=== PATIENT | female | born 1980 | race Caucasian/White ===

== ENCOUNTER 2016-05-16 16:21 | Outpatient (CLI) | payer BC ==
[~2016-05-16] VITALS: Ht 160 cm; Wt 88.1 kg
[~2016-05-16 16:21] MED LIST: CRAN400T3 PO; D50KC PO; DEXA0.5T PO; DIPH25CA79 PO; FURO-125 PO; HYDR-757 PO; IBUP-1773 PO; LEVO5TAB19 PO; METF-146 PO; OMG1KC PO; PHEN37.555 PO; PNV1TABL9 PO; POTA20TA8 PO; PROG100C3 PO; PROG100I2 VG; SERT50TA2 PO; THYR130T5 PO; TRAM50TA2 PO
--- OUTSIDE RECORDS SUMMARY | 2016-05-16 16:26 | XMS REPORT | Continuity of Care Document ---
Author Author [facility] Organization [facility] Address Unknown Phone Unavailable Care Team Providers Care Implementation Analyst Name Role Phone Ja Lim PCP [phone] Source Comments Some departments are not documenting in the electronic medical record. If you do not see the information that you expected, contact Release of Information in the Health Information Management department at [phone] for further assistance in locating additional records.[facility] Active Allergies and Adverse Reactions Allergen Noted Date Severity Reactions Comments Morphine 01/13/2011 NAUSEA AND VOMITING Current Medications Prescription Sig. Disp. Refills Start End Date Status Date Glycopyrrolate 2 mg PO Take 2 mg by mouth twice Active Tab daily. HYDROcodone/acetaminophen Take 1 Tab by mouth every Active (+) (LORTAB) 7.5/500 mg 4 hours as needed. PO tablet phentermine(+) 37.5 mg PO Take 37.5 mg by mouth as Active tablet Needed. liraglutide(+) (VICTOZA) Inject 0.6 mg into Active 0.6 mg/0.1 mL (18 mg/3 area(s) as directed mL) SC PnIj daily. dexamethasone (DECADRON) Take 0.5 mg by mouth Active 0.5 mg PO tablet daily. Days 10-28 progesterone Take 200 mg by mouth Active micronized(+) daily. (PROMETRIUM) 100 mg PO capsule Olopatadine (PATANASE) Insert 2 Sprays into nose Active 0.6 % NA [place] as directed daily. polyethylene glycol 3350 Take 17 g by mouth daily. Active (GLYCOLAX; MIRALAX) 17 gram/dose PO powder IBUPROFEN PO Take 800 mg by mouth Active daily as needed. diphenhydrAMINE Take 25 mg by mouth daily Active (BENADRYL) 25 mg PO as needed. capsule ergocalciferol (VITAMIN Take 50,000 Units by Active D-2) 50,000 unit PO mouth every 7 days. capsule Cranberry 500 mg PO Cap Take by mouth daily. Active VITS Take by mouth daily. Active W-CA,FE,FA(<1MG) ( VITAMIN PO) Active Problems Problem Noted Date Neuralgia, neuritis, and radiculitis, unspecified 01/13/2011 Abdominal pain, unspecified site 01/13/2011 Other nerve root and plexus disorders 01/13/2011 Social History Tobacco Use Types Packs/Day Years Used Date Never Smoker Alcohol Use Drinks/Week oz/Week Comments Yes 1 Glasses of 0.6 wine Last Filed Vital Signs Vital Sign Reading Time Taken Blood Pressure 97/60 02/17/2011 11:11 AM CDT Pulse 62 02/17/2011 11:11 AM CDT Temperature 36.2 C (97.1 F) 02/17/2011 11:11 AM CDT Respiratory Rate 23 02/17/2011 11:11 AM CDT Height 1.6 m (5' 3") 02/17/2011 11:11 AM CDT Weight 64.093 kg (141 lb 4.8 oz) 02/17/2011 11:11 AM CDT Body Mass Index 25.04 02/17/2011 11:11 AM CDT Oxygen Saturation - - Plan of Care Health Maintenance Due Date Last Done Comments Physical (Comprehensive) 1988 Exam Pertussis Vaccine 1992 Tetanus Vaccine 1998 Cervical Cancer Screening 2002 Influenza Vaccine 01/09/2016 Results from Last 3 Months Not on file
[2016-05-16] MEDS ORDERED: D5 LR IV SOLUTION 1,000 ML IV SCH (17:00)
[2016-05-16] MEDS ORDERED: PROMETHAZINE INJ 25 MG/ML (PHENERGAN) AMP IVP ONE (17:00)
[2016-05-16] MEDS ORDERED: MAGNESIUM 1 GM/100 ML IVPB 100 ML IV ONE (17:00)
[2016-05-16] MEDS ORDERED: diphenhydrAMINE 50 MG/ML INJ (BENADRYL) IVP ONE (17:00)
[2016-05-16 17:40] LABS: BASOPHILS % (AUTO) 0 % (0-10); EOSINOPHILS % (AUTO) 0 % (0-10); LYMPHOCYTES # (AUTO) 1.7 X 10^3 (1.0-4.0); LYMPHOCYTES % (AUTO) 16 % (12-44); MEAN CORPUSCULAR HEMOGLOBIN 30 PG (25-34); MEAN CORPUSCULAR HGB CONC 34 G/DL (32-36); MEAN CORPUSCULAR VOLUME 87 FL (80-99); MEAN PLATELET VOLUME 9.3 FL (7.4-10.4); MONOCYTES # (AUTO) 0.5 X 10^3 (0.0-1.0); MONOCYTES % (AUTO) 5 % (0-12); NEUTROPHILS # (AUTO) 8.7 X 10^3 (1.8-7.8); NEUTROPHILS % (AUTO) 79 % (42-75); PLATELET COUNT 241 10^3/uL (130-400); RED BLOOD COUNT 4.54 10^6/uL (4.35-5.85); RED CELL DISTRIBUTION WIDTH 14.1 % (10.0-14.5)
[2016-05-16 18:02] LABS: ALANINE AMINOTRANSFERASE 15 U/L (0-55); ALBUMIN 3.5 G/DL (3.2-4.5); AMYLASE 86 U/L (25-125); ANION GAP 11 MMOL/L (5-14); ASPARTATE AMINO TRANSFERASE 13 U/L (5-34); BILIRUBIN,TOTAL 0.2 MG/DL (0.1-1.0); BLOOD UREA NITROGEN 7 MG/DL (7-18); BUN/CREATININE RATIO 12; CALCIUM 8.6 MG/DL (8.5-10.1); CARBON DIOXIDE 18 MMOL/L (21-32); CHLORIDE 111 MMOL/L (98-107); GFR ESTIMATED > 60; GLUCOSE 92 MG/DL (70-105); LIPASE 35 U/L (8-78); POTASSIUM 3.5 MMOL/L (3.6-5.0); SODIUM 140 MMOL/L (135-145); TOTAL PROTEIN 6.1 G/DL (6.4-8.2)
[2016-05-16] MEDS ORDERED: ONDANSETRON 4 MG/2 ML (SDV) Z0FRAN ONE (18:08)
[2016-05-16 18:20] VITALS: BP 100/55
[2016-05-16] MEDS ORDERED: ONDA4TAB8 PO (18:35)
--- NOTE | 2016-05-18 12:28 | Physician Query-Final Dx ---
SIMI STEPHENS 05/18/16 1228: Clinic Account Progress/Dx Physician Query: Please give diagnosis Date of Service May 16, 2016 at 16:21 ABDELRAHMAN CAPUTO MD 05/20/16 1202: Clinic Account Progress/Dx DIAGNOSIS: Diagnosis Nausea and vomiting in , headache in SIMI STEPHENS May 18, 2016 12:28 ABDELRAHMAN CAPUTO MD May 20, 2016 12:02
== END 2016-05-16 19:00 | disposition home or self-care (01) ==
LOC: LDRP 16:21 → WSo 16:21
PROVIDERS: ATTEND Obstetrics & Gynecology
DX: O21.9 Vomiting of pregnancy, unspecified (principal); O99.89 Other specified diseases and conditions complicating pregnancy, childbirth and the puerperium; R51 Headache
CPT/HCPCS: 36415; 80053; 82150; 83690; 85025; 96374; 96375; 99214

== ENCOUNTER 2016-05-18 18:40 | Outpatient (CLI) | payer BC ==
[~2016-05-18] VITALS: Ht 160 cm; Wt 89.0 kg
[~2016-05-18 18:40] MED LIST changes: +ONDA4TAB8 PO
--- OUTSIDE RECORDS SUMMARY | 2016-05-18 18:44 | XMS REPORT | Continuity of Care Document ---
Author Author [facility] Organization [facility] Address Unknown Phone Unavailable Care Team Providers Care Dentures Lab Technician Name Role Phone Ja Lim PCP [phone] Source Comments Some departments are not documenting in the electronic medical record. If you do not see the information that you expected, contact Release of Information in the Health Information Management department at [phone] for further assistance in locating additional records.[facility] Active Allergies and Adverse Reactions Allergen Noted [...] Sprays into nose Active 0.6 % NA [place] as directed daily. polyethylene glycol 3350 Take [...]
[2016-05-18 18:45] VITALS: BP 103/54
[2016-05-18] MEDS ORDERED: BUTORPHANOL INJ 2 MG/ML (STADOL) VIAL IV ONE (19:15)
[2016-05-18] MEDS ORDERED: D5 LR IV SOLUTION 1,000 ML IV SCH (19:15)
[2016-05-18 19:38] LABS: BILIRUBIN,URINE NEGATIVE (NEGATIVE); KETONES,URINE NEGATIVE (NEGATIVE); LEUKOCYTE ESTERASE ,URINE 1+ (NEGATIVE); NITRITE,URINE NEGATIVE (NEGATIVE); PH,URINE 6 (5-9); PROTEIN,URINE NEGATIVE (NEGATIVE); UROBILINOGEN,URINE 1 MG/DL (NORMAL)
[2016-05-18] MEDS ORDERED: MAGN400T6 PO (19:42)
[2016-05-18] MEDS ORDERED: CEPH-507 PO (19:44)
[2016-05-18 19:45] LABS: CALCIUM OXALATE CRYSTALS,UR FEW /LPF
[2016-05-18 19:50] LABS: BASOPHILS % (AUTO) 0 % (0-10); EOSINOPHILS # (AUTO) 0.1 10^3/uL (0.0-0.3); EOSINOPHILS % (AUTO) 1 % (0-10); LYMPHOCYTES # (AUTO) 2.1 X 10^3 (1.0-4.0); LYMPHOCYTES % (AUTO) 27 % (12-44); MEAN CORPUSCULAR HEMOGLOBIN 30 PG (25-34); MEAN CORPUSCULAR HGB CONC 34 G/DL (32-36); MEAN CORPUSCULAR VOLUME 88 FL (80-99); MEAN PLATELET VOLUME 9.6 FL (7.4-10.4); MONOCYTES # (AUTO) 0.7 X 10^3 (0.0-1.0); MONOCYTES % (AUTO) 9 % (0-12); NEUTROPHILS # (AUTO) 4.9 X 10^3 (1.8-7.8); NEUTROPHILS % (AUTO) 64 % (42-75); PLATELET COUNT 225 10^3/uL (130-400); RED BLOOD COUNT 4.15 10^6/uL (4.35-5.85); RED CELL DISTRIBUTION WIDTH 14.1 % (10.0-14.5); WHITE BLOOD COUNT 7.7 10^3/uL (4.3-11.0)
[2016-05-18 20:00] VITALS: BP 100/58
[2016-05-18 20:09] LABS: ALANINE AMINOTRANSFERASE 23 U/L (0-55); ALBUMIN 3.2 G/DL (3.2-4.5); ANION GAP 9 MMOL/L (5-14); ASPARTATE AMINO TRANSFERASE 15 U/L (5-34); BILIRUBIN,TOTAL 0.2 MG/DL (0.1-1.0); BLOOD UREA NITROGEN 10 MG/DL (7-18); BUN/CREATININE RATIO 16; CALCIUM 8.6 MG/DL (8.5-10.1); CARBON DIOXIDE 19 MMOL/L (21-32); CHLORIDE 109 MMOL/L (98-107); CREATININE SERUM 0.61 MG/DL (0.60-1.30); GFR ESTIMATED > 60; GLUCOSE 91 MG/DL (70-105); POTASSIUM 3.4 MMOL/L (3.6-5.0); SODIUM 137 MMOL/L (135-145); TOTAL PROTEIN 5.6 G/DL (6.4-8.2)
[2016-05-18 20:25] VITALS: BP 96/58
[2016-05-18 20:55] VITALS: BP 97/55
[2016-05-18 21:00] VITALS: BP 102/52
[2016-05-18 21:49] VITALS: BP 96/53
--- NOTE | 2016-05-20 09:30 | Physician Query-Final Dx ---
SIMI STEPHENS 05/20/16 0930: Clinic Account Progress/Dx Physician Query: Please give diagnosis Date of Service May 18, 2016 at 18:40 ANGELES MALAGON MD 05/21/16 0748: Clinic Account Progress/Dx DIAGNOSIS: Diagnosis migraine headache SIMI STEPHENS May 20, 2016 09:30 ANGELES MALAGON MD May 21, 2016 07:48
== END 2016-05-18 22:07 | disposition home or self-care (01) ==
LOC: LDRP 18:40 → WSo 18:40
PROVIDERS: ATTEND Obstetrics & Gynecology
DX: O99.89 Other specified diseases and conditions complicating pregnancy, childbirth and the puerperium (principal); G43.909 Migraine, unspecified, not intractable, without status migrainosus; Z3A.25 25 weeks gestation of pregnancy
CPT/HCPCS: 36415; 80053; 81000; 85025; 87088; 96361; 96374; 99213

== ENCOUNTER 2016-07-13 08:51 | Outpatient (CLI) | payer BC ==
[~2016-07-13] VITALS: Ht 160 cm; Wt 94.0 kg
[~2016-07-13 08:51] MED LIST changes: +CEPH-507 PO; +MAGN400T6 PO
--- OUTSIDE RECORDS SUMMARY | 2016-07-13 08:55 | XMS REPORT | Continuity of Care Document ---
Author Author [facility] Organization [facility] Address Unknown Phone Unavailable Care Team Providers Care Package Crimper Name Role Phone Ja Lim PCP [phone] Source Comments Some departments are not documenting in the electronic medical record. If you do not see the information that you expected, contact Release of Information in the Health Information Management department at [phone] for further assistance in locating additional records.[facility] Active Allergies and Adverse Reactions Allergen [...] Sprays into nose Active 0.6 % NA [place] as directed daily. polyethylene glycol 3350 Take [...]
[2016-07-13 09:00] VITALS: BP 117/60
[2016-07-13] MEDS ORDERED: FLUT9.9S NS (10:41)
[2016-07-13 11:00] VITALS: BP 117/60
--- NOTE | 2016-07-14 13:46 | Physician Query-Final Dx ---
EMILIANO JACOBS 07/14/16 1346: Clinic Account Progress/Dx Physician Query: Please give diagnosis Date of Service Jul 13, 2016 at 08:51 BAIELY VALENCIA DO 07/15/16 0439: Clinic Account Progress/Dx DIAGNOSIS: Diagnosis 33 week IUP Decreased movement EMILIANO JACOBS Jul 14, 2016 13:46 BAILEY VALENCIA DO Jul 15, 2016 04:39
== END 2016-07-13 11:00 | disposition home or self-care (01) ==
LOC: LDRP 08:51 → WSo 08:51
PROVIDERS: ATTEND Obstetrics & Gynecology
DX: O36.8130 Decreased fetal movements, third trimester, not applicable or unspecified (principal); Z3A.33 33 weeks gestation of pregnancy
CPT/HCPCS: 99213

== ENCOUNTER 2016-08-13 11:58 | Outpatient (CLI) | payer BC ==
[~2016-08-13] VITALS: Ht 160 cm; Wt 94.1 kg
[~2016-08-13 11:58] MED LIST changes: +FLUT9.9S NS
[2016-08-13 12:13] VITALS: BP 111/67
== END 2016-08-13 12:38 | disposition home or self-care (01) ==
LOC: PREOP 11:58
PROVIDERS: ATTEND Obstetrics & Gynecology
DX: Z01.818 Encounter for other preprocedural examination (principal); Z11.2 Encounter for screening for other bacterial diseases
CPT/HCPCS: 87081

== ENCOUNTER 2016-08-20 06:02 | Inpatient (IN) | payer BC ==
[~2016-08-20] VITALS: Ht 160 cm; Wt 94.1 kg
[~2016-08-20 06:02] MED LIST changes: +CITRIC ACID/SOB CIT (BICITRA) 30 ML UDC ONE; +METOCLOPRAMIDE INJ 10 MG/2 ML (REGLAN) ONE
[2016-08-20] MEDS ORDERED: AMPICILLIN INJECTION 2,000 MG in NS (IVPB) 50 ML IV ONE (06:07)
[2016-08-20 06:10] VITALS: BP 117/77
[2016-08-20] MEDS ORDERED: LACTATED RINGERS 1,000 ML IV PRN ×2 (06:11)
[2016-08-20] MEDS ORDERED: FAMOTIDINE 20MG/2ML IV (PEPCID) IV ONE (06:15)
[2016-08-20] MEDS ORDERED: CITRIC ACID/SOB CIT (BICITRA) 30 ML UDC PO ONE (06:15)
[2016-08-20] MEDS ORDERED: METOCLOPRAMIDE INJ 10 MG/2 ML (REGLAN) IV ONE (06:15)
[2016-08-20] MEDS ORDERED: CATHETER FLUSH 10 ML SYR IV PRN (06:15)
[2016-08-20] MEDS ORDERED: THYR130T5 PO (06:26)
[2016-08-20 06:29] LABS: BASOPHILS % (AUTO) 0 % (0-10); EOSINOPHILS # (AUTO) 0.1 10^3/uL (0.0-0.3); EOSINOPHILS % (AUTO) 1 % (0-10); LYMPHOCYTES # (AUTO) 2.6 X 10^3 (1.0-4.0); LYMPHOCYTES % (AUTO) 25 % (12-44); MEAN CORPUSCULAR HEMOGLOBIN 29 PG (25-34); MEAN CORPUSCULAR HGB CONC 33 G/DL (32-36); MEAN CORPUSCULAR VOLUME 87 FL (80-99); MONOCYTES # (AUTO) 0.9 X 10^3 (0.0-1.0); MONOCYTES % (AUTO) 9 % (0-12); NEUTROPHILS # (AUTO) 6.9 X 10^3 (1.8-7.8); NEUTROPHILS % (AUTO) 65 % (42-75); PLATELET COUNT 270 10^3/uL (130-400); RED BLOOD COUNT 4.86 10^6/uL (4.35-5.85); RED CELL DISTRIBUTION WIDTH 15.6 % (10.0-14.5); WHITE BLOOD COUNT 10.5 10^3/uL (4.3-11.0)
[2016-08-20] MEDS ORDERED: ceFAZolin 2 GM/50 ML NS 50 ML IV NR (06:30)
[2016-08-20 06:52] LABS: BILIRUBIN,URINE NEGATIVE (NEGATIVE); KETONES,URINE NEGATIVE (NEGATIVE); LEUKOCYTE ESTERASE ,URINE 1+ (NEGATIVE); NITRITE,URINE NEGATIVE (NEGATIVE); PH,URINE 6 (5-9); PROTEIN,URINE 1+ (NEGATIVE); UROBILINOGEN,URINE NORMAL (NORMAL)
[2016-08-20] MEDS ORDERED: OXYTOCIN/NORMAL SALINE 1,000 ML IV ONE (06:59)
[2016-08-20] MEDS ORDERED: fentaNYL INJECTION 100 MCG/2 ML AMP ONE (06:59)
[2016-08-20] MEDS ORDERED: BUPIVACAINE SPINAL 0.75% (SENSORCAINE) 2 ML AMP ONE (07:00)
--- NOTE | 2016-08-20 07:13 | History & Physical-OB ---
OB - Chief Complaint & HPI Date Date of Admission: Date of Admission: Aug 20, 2016 at 6:02 am Chief Complaint/History OB-Reason for Admission/Chief: Section Hx : 2 Hx Para: 1 Expected Date of Delivery: Aug 26, 2016 Gestational Age in Weeks: 39 Gestational Age in Days: 1 Indication for : other (History of tailbone dislocation with prior ) Admission Nurse Assessment Rev: Yes History of Labs O pos Antibody neg RI RPR HBsAg GC neg GBS + Allergies and Home Medications Allergies Coded Allergies: codeine (Verified Allergy, Unknown, NAUSEA, 08/13/16) morphine (Unverified Allergy, Unknown, 08/13/16) Home Medications Diphenhydramine HCl 25 Mg Capsule, 25 MG PO Q8H PRN for ALLERGIES, (Reported) Fluticasone Propionate 9.9 Ml Inez.susp, 9.9 ML NS PRN, (Reported) Pnv Cmb#21/Iron/Folic Acid 1 Each Tablet, 1 EACH PO DAILY, (Reported) Thyroid,Pork 130 Mg Tablet, 130 MG PO DAILY, (Reported) OB - History Hx of Present Care: Yes Ultrasounds: Normal mid trimester US Obstetrical Complications: Other (Abnormal quad screen, Increased risk of T21) Medical Complications: None Delivery History Hx Blood Disorders: No Adverse Rxn to Tranfusion: No (N/A) Patient Past Medical History PCOS Social History/Family History HIV/AIDS: No Recent Infectious Disease Expo: No Sexually Transmitted Disease: No Alcohol Use: Denies Use Recreational Drug Use: No Immunizations Date of Influenza Vaccine: Feb 20, 2016 OB - Admission Exam Physical Exam HEENT: NCAT Heart: Rhythm Normal Lungs: Clear Abdomen: Gravid Extremities: Normal Reflexes: Normal Heart Rate: 130's Accelerations: Accelerations Present Decelerations: No Decelerations Short Term Variability: Present Halfway Variability: Average (6-25) Contractions on Admission: >10 Minutes Apart Intensity: Mild Labs Laboratory Tests Test 08/20/16 06:15 08/20/16 06:30 Range/Units White Blood Count 10.5 4.3-11.0 10^3/uL Red Blood Count 4.86 4.35-5.85 10^6/uL Hemoglobin 14.0 11.5-16.0 G/DL Hematocrit 43 35-52 % Mean Corpuscular Volume 87 80-99 FL Mean Corpuscular Hemoglobin 29 25-34 PG Mean Corpuscular Hemoglobin Concent 33 32-36 G/DL Red Cell Distribution Width 15.6 H 10.0-14.5 % Platelet Count 270 130-400 10^3/uL Mean Platelet Volume 10.0 7.4-10.4 FL Neutrophils (%) (Auto) 65 42-75 % Lymphocytes (%) (Auto) 25 12-44 % Monocytes (%) (Auto) 9 0-12 % Eosinophils (%) (Auto) 1 0-10 % Basophils (%) (Auto) 0 0-10 % Neutrophils # (Auto) 6.9 1.8-7.8 X 10^3 Lymphocytes # (Auto) 2.6 1.0-4.0 X 10^3 Monocytes # (Auto) 0.9 0.0-1.0 X 10^3 Eosinophils # (Auto) 0.1 0.0-0.3 10^3/uL Basophils # (Auto) 0.0 0.0-0.1 10^3/uL OB - Assessment/Plan/Diagnosis Assessment Assessment: section Plan Plan: Section Discharge Diagnosis Diagnosis: 35 yo @ 39.1 weeks History of Tailbone dislocation and 6 month recovery including PT GBS pos Abnormal quad screen BAILEY VALENCIA DO Aug 20, 2016 7:13 am
[2016-08-20] MEDS ORDERED: ONDANSETRON 4 MG/2 ML (SDV) Z0FRAN ONE (08:02)
[2016-08-20] MEDS ORDERED: OXYTOCIN/NORMAL SALINE 500 ML IV SCH (08:16)
[2016-08-20] MEDS ORDERED: ONDANSETRON 4 MG/2 ML (SDV) Z0FRAN IVP PRN (08:30)
[2016-08-20] MEDS ORDERED: HYDROmorphone (DILAUDID) 2 MG/ML VIAL IVP PRN (08:30)
[2016-08-20] MEDS ORDERED: MEASLES,MUMPS,RUBELLA 1 EA INJ SC SCH (08:30)
[2016-08-20] MEDS ORDERED: TETANUS,DIPTH,PERTUSS P/F (BOOSTRIX) 0.5 ML VIAL IM SCH (08:30)
[2016-08-20] MEDS: KETOROLAC 30 MG/ML VIAL IVP SCH ×3 (10:31→21:21)
[2016-08-20] MEDS: DOCUSATE SODIUM 100 MG (COLACE) CAP PO SCH ×2 (10:31→20:19)
[2016-08-20] MEDS: HYDROcodone/APAP 5 MG/325 MG (LORTAB) TAB PO PRN ×3 (10:45→23:24)
[2016-08-20 10:46] VITALS: BP 95/61
--- NOTE | 2016-08-20 13:27 | OPERATIVE REPORT ---
PROCEDURE PHYSICIAN: GIANCARLO VALENCIA DATE OF PROCEDURE: 08/20/2016 PREOPERATIVE DIAGNOSIS: 1. 35-year-old G2, P1 at 39 weeks one day gestation. 2. History of coccyx dislocation with prior vaginal delivery. POSTOPERATIVE DIAGNOSES: 1. 35-year-old G2, P1, at 39 weeks one day gestation. 2. History of coccyx dislocation with prior vaginal delivery. PROCEDURE: Primary low transverse section. SURGEON: Dr. Giancarlo Valencia. COTTON CLEANER: Winter Burch, [place] 4. ANESTHESIA: Spinal. ESTIMATED BLOOD LOSS: 830 mL. FLUIDS: 1400 mL lactated ringer solution. URINE: 100 mL clear at the end of the procedure. FINDINGS: Live female weighing 7 pounds, 3 ounces, Apgars 9 and 9. Grossly normal appearing uterus, bilateral fallopian tubes, and ovaries. INDICATIONS FOR THE PROCEDURE: This 35-year-old female is a patient who had sought care in my office. Throughout her care visits we discussed her previous delivery which included a dislocation of her coccyx with the prior delivery requiring a lengthy physical therapy. The patient wished to avoid this and was interested in proceed with primary section. Risk of this was discussed with the patient in detail. After everything was discussed and we agreed together now to proceed with primary low transverse section. In the preoperative area once again the procedure was reviewed. All her questions were answered. Consent was obtained. The patient was taken the operating room. OPERATIVE REPORT IN DETAIL: Once in the operating room, spinal analgesia was found to be adequate. She was placed in the supine position with leftward tilt, prepped in normal sterile fashion. Anesthesia is tested and timeout is performed. I then proceeded with making a Pfannenstiel skin incision with a knife and carried down to the underlying fascia using Bovie cautery. The fascial incision is extended laterally using the Bovie cautery. The superior aspect of the fascial incision was grasped with Maurilio clamps, tented upward and dissected off the underlying rectus muscle. The inferior aspect of the fascial incision was then grasped with Maurilio clamps, tented upward and dissected off of the underlying rectus muscles. The rectus muscles were then dissected down the midline using Abdullahi scissors which exposes the peritoneum. It is extended bluntly and this incision is extended superiorly and inferiorly with good visualization of underlying bowel and bladder. I then identify the lower uterine segment and placed an Andrew O-ring retractor into the peritoneal incision which offers excellent lateral sidewall retraction. Once this is in place, I proceed with my low transverse incision through the vesicouterine peritoneum and bluntly dissecting the bladder flap off of the lower uterine segment. I then proceed with my myotomy until membranes are visualized I extend the uterine incision laterally and superiorly using banded scissors and amniotomy was performed in the process of doing this. Clear fluid is noted at the time of rupture of membranes. The is found in the vertex presentation. The 's head was brought up to the incision. With gentle fundal pressure delivered through the incision where the nares and oropharynx are bulb suctioned. Anterior posterior shoulders were delivered and the infant is then brought onto the operative field. The cord is dually clamped and cut the is placed on the mother's upper abdomen were nurses take the for skin to skin contact immediately to the mother's chest. Cord blood was collected for analysis. Three vessel cord and placenta is delivered spontaneously thereafter. IV Pitocin is initiated to facilitate uterine contraction. Uterine fundus becomes firmer by manual massage. The uterus is then exteriorized of all endometrial, clots and debris. I then close the uterine incision using 0 Vicryl suture in a running lock fashion. A second layer of imbricating 0 Monocryl is placed. Excellent hemostasis noted after doing so. I then placed the uterus back within the pelvis and copiously irrigate the pelvis using normal saline. There is no active bleeding noted from any of my dissection planes. We then proceed with placing intercede to my low transverse incision for postoperative adhesion formation. I then close the peritoneum using 3-0 Vicryl suture in a running fashion. The rectus muscles are reapproximated using 3-0 Vicryl suture in an interrupted fashion. The fascia reapproximated 0 Vicryl suture in a running fashion. The subcutaneous tissues reapproximated using 3-0 plain in an interrupted subcutaneous stitch. The skin was reapproximated using 4-0 Monocryl in a running subcuticular. Dermabond was applied to the incision and sterile dressing and adhesive white tape. The patient tolerated the procedure well and was taken to the recovery area in stable condition. Lap and sponge count were correct at the end of the procedure, instrument count was correct as well. 2 grams Ancef were given preoperatively for infection prophylaxis. Job ID: [id number] Dictated Date: 08/20/2016 08:09:07 Apprentice/Lineman Date: 08/20/2016 13:07:34 / jesus
[2016-08-20 13:36] VITALS: BP 116/64
[2016-08-20 20:49] VITALS: BP 117/74
[2016-08-20] MEDS: CATHETER FLUSH 10 ML SYR IV SCH (21:21)
[2016-08-21] VITALS: BP 86/55
[2016-08-21] MEDS: KETOROLAC 30 MG/ML VIAL IVP SCH (03:11)
[2016-08-21] MEDS: HYDROcodone/APAP 5 MG/325 MG (LORTAB) TAB PO PRN ×4 (03:11→21:12)
[2016-08-21 04:00] VITALS: BP 97/56
[2016-08-21] MEDS: CATHETER FLUSH 10 ML SYR IV SCH ×3 (06:00→23:36)
[2016-08-21 06:48] LABS: BASOPHILS % (AUTO) 0 % (0-10); EOSINOPHILS # (AUTO) 0.1 10^3/uL (0.0-0.3); EOSINOPHILS % (AUTO) 1 % (0-10); LYMPHOCYTES # (AUTO) 3.2 X 10^3 (1.0-4.0); LYMPHOCYTES % (AUTO) 29 % (12-44); MEAN CORPUSCULAR HEMOGLOBIN 28 PG (25-34); MEAN CORPUSCULAR HGB CONC 32 G/DL (32-36); MEAN CORPUSCULAR VOLUME 89 FL (80-99); MONOCYTES # (AUTO) 0.7 X 10^3 (0.0-1.0); MONOCYTES % (AUTO) 7 % (0-12); NEUTROPHILS # (AUTO) 6.8 X 10^3 (1.8-7.8); NEUTROPHILS % (AUTO) 63 % (42-75); PLATELET COUNT 231 10^3/uL (130-400); RED BLOOD COUNT 3.66 10^6/uL (4.35-5.85); RED CELL DISTRIBUTION WIDTH 15.5 % (10.0-14.5); WHITE BLOOD COUNT 10.8 10^3/uL (4.3-11.0)
[2016-08-21 08:00] VITALS: BP 90/68
[2016-08-21] MEDS: DOCUSATE SODIUM 100 MG (COLACE) CAP PO SCH ×2 (08:19→21:12)
[2016-08-21] MEDS: IBUPROFEN 600 MG (MOTRIN) TAB PO SCH ×3 (09:09→21:12)
--- NOTE | 2016-08-21 10:43 | Postpartum Progress Note ---
Post Op Post-operative Day #1 s/p PLTCS Subjective: Patient is without complaints. Ambulating, voiding after morrow removed. Tolerating a regular diet without nausea or vomiting. Normal lochia. Pain is well controlled with oral pain medications. Passing flatus. breast feeding. Objective: Laboratory Tests Test 08/21/16 06:11 Range/Units White Blood Count 10.8 4.3-11.0 10^3/uL Red Blood Count 3.66 L 4.35-5.85 10^6/uL Hemoglobin 10.4 #L 11.5-16.0 G/DL Hematocrit 33 L 35-52 % Mean Corpuscular Volume 89 80-99 FL Mean Corpuscular Hemoglobin 28 25-34 PG Mean Corpuscular Hemoglobin Concent 32 32-36 G/DL Red Cell Distribution Width 15.5 H 10.0-14.5 % Platelet Count 231 130-400 10^3/uL Mean Platelet Volume 10.0 7.4-10.4 FL Neutrophils (%) (Auto) 63 42-75 % Lymphocytes (%) (Auto) 29 12-44 % Monocytes (%) (Auto) 7 0-12 % Eosinophils (%) (Auto) 1 0-10 % Basophils (%) (Auto) 0 0-10 % Neutrophils # (Auto) 6.8 1.8-7.8 X 10^3 Lymphocytes # (Auto) 3.2 1.0-4.0 X 10^3 Monocytes # (Auto) 0.7 0.0-1.0 X 10^3 Eosinophils # (Auto) 0.1 0.0-0.3 10^3/uL Basophils # (Auto) 0.0 0.0-0.1 10^3/uL Vital Sign - Last 12Hours 08/21/16 08/21/16 08/21/16 00:00 04:00 08:00 Temp 97.7 96.0 96.4 Pulse 80 66 88 Resp 17 17 20 B/P (MAP) 86/55 97/56 90/68 Pulse Ox 100 100 97 O2 Delivery Room Air Room Air Room Air Intake and Output 08/21/16 00:00 Intake Total 1360 ml Output Total 650 ml Balance 710 ml Physical Exam: General - Alert and oriented, no apparent distress Abdomen - Soft, appropriately tender to palpation, non-distended, fundus firm at umbilicus Incision - clean, dry and intact; no erythema or induration, no drainage Extremities - no edema, negative Carolina's bilaterally Assessment: 1. post-operative day #1, status post PLTCS. Recovering well, hemodynamically stable 2. Acute blood loss anemia - mild. Iron replaced Plan: Routine post-operative care. Encourage breast feeding. Encourage ambulation. VTE prophylaxis: SCDs. Ferrous sulfate supplementation. Plan for discharge Wednesday Vitals - Labs Vital Signs - I&O Vital Signs Date Time Temp Pulse Resp B/P (MAP) Pulse Ox O2 Delivery O2 Flow Rate FiO2 08/21/16 08:00 96.4 88 20 90/68 97 Room Air 08/21/16 04:00 96.0 66 17 97/56 100 Room Air 08/21/16 00:00 97.7 80 17 86/55 100 Room Air 08/20/16 20:49 96.2 91 18 117/74 97 Room Air 08/20/16 18:38 97.3 08/20/16 16:05 97.3 08/20/16 13:36 97.3 81 18 116/64 97 Room Air 08/20/16 12:58 97.3 08/20/16 11:01 97.1 08/20/16 10:46 97.1 84 18 95/61 99 Room Air 08/20/16 10:45 97.7 I & O 08/21/16 07:00 Intake Total 2910 ml Output Total 1550 ml Balance 1360 ml Labs Laboratory Tests 08/21/16 06:11: White Blood Count 10.8, Red Blood Count 3.66L, Hemoglobin 10.4#L, Hematocrit 33L , Mean Corpuscular Volume 89, Mean Corpuscular Hemoglobin 28, Mean Corpuscular Hemoglobin Concent 32, Red Cell Distribution Width 15.5H, Platelet Count 231, Mean Platelet Volume 10.0, Neutrophils (%) (Auto) 63, Lymphocytes (%) (Auto) 29 , Monocytes (%) (Auto) 7, Eosinophils (%) (Auto) 1, Basophils (%) (Auto) 0, Neutrophils # (Auto) 6.8, Lymphocytes # (Auto) 3.2, Monocytes # (Auto) 0.7, Eosinophils # (Auto) 0.1, Basophils # (Auto) 0.0 Microbiology 08/20/16 Urine Culture - Preliminary, Resulted Group B Streptococci Lactobacillus Species GENESIS DE SOUZA DO Aug 21, 2016 10:43
--- NOTE | 2016-08-21 14:05 | Anesthesia-Regional Post-Op ---
Regional Patient Condition Mental Status: Alert, Oriented x3 Circulation: Same as Pre-Op Headache: Absent Sensation: Full Recovery Motor Block: Absent Post Op Complications Complications None Follow Up Care/Instructions Patient Instructions None needed. Anesthesia/Patient Condition Patient is doing well, no complaints, stable vital signs, no apparent adverse anesthesia problems. DORINA BROOKS DO Aug 21, 2016 14:05
[2016-08-21 15:30] VITALS: BP 103/62
[2016-08-21 21:00] VITALS: BP 110/76
[2016-08-22] MEDS: HYDROcodone/APAP 5 MG/325 MG (LORTAB) TAB PO PRN ×3 (02:48→16:24)
[2016-08-22] MEDS: IBUPROFEN 600 MG (MOTRIN) TAB PO SCH ×3 (02:48→16:24)
[2016-08-22 02:55] VITALS: BP 103/68
[2016-08-22] MEDS: CATHETER FLUSH 10 ML SYR IV SCH (06:00)
--- NOTE | 2016-08-22 10:03 | Postpartum Progress Note ---
Post Op Post-operative Day #2 s/p PLTCS Subjective: Patient is without complaints. Ambulating, voiding after morrow removed. Tolerating a regular diet without nausea or vomiting. Normal lochia. Pain is well controlled with oral pain medications. Passing flatus. Objective: Vital Sign - Last 12Hours 08/22/16 02:55 Temp 98.4 Pulse 72 Resp 18 B/P (MAP) 103/68 Pulse Ox 97 O2 Delivery Room Air Intake and Output 08/22/16 00:00 Intake Total 1400 ml Output Total 400 ml Balance 1000 ml Physical Exam: General - Alert and oriented, no apparent distress Abdomen - Soft, appropriately tender to palpation, non-distended, fundus firm at umbilicus Incision - clean, dry and intact; no erythema or induration, no drainage Extremities - no edema, negative Carolina's bilaterally Assessment: 1. post-operative day # 2, status post PLTCs. Recovering well, hemodynamically stable Plan: Routine post-operative care. Encourage breast feeding. Encourage ambulation. VTE prophylaxis: SCDs. Ferrous sulfate supplementation. Plan for discharge today Vitals - Labs Vital Signs - I&O Vital Signs Date Time Temp Pulse Resp B/P (MAP) Pulse Ox O2 Delivery O2 Flow Rate FiO2 08/22/16 02:55 98.4 72 18 103/68 97 Room Air 08/21/16 21:00 97.4 80 18 110/76 100 Room Air 08/21/16 15:30 97.3 82 16 103/62 97 Room Air I & O 08/22/16 07:00 Intake Total 2300 ml Output Total 800 ml Balance 1500 ml Labs Microbiology 08/20/16 Urine Culture - Preliminary, Resulted Group B Streptococci Lactobacillus Species GENESIS DE SOUZA DO Aug 22, 2016 10:03
[2016-08-22] MEDS ORDERED: IBUP-1773 PO (10:04)
[2016-08-22] MEDS ORDERED: DOCU100C37 PO (10:04)
[2016-08-22] MEDS ORDERED: HYDR-3812 PO (10:04)
--- NOTE | 2016-08-22 10:07 | Discharge Inst-Women's Service ---
Discharge Inst-Women's Serv Depart Medication/Instructions New, Converted or Re-Newed RX: RX on Chart Instructions no lifting over 25 lbs, no driving for 1 week, Final Diagnosis primary section history of coccygeal dislocation with previous delivery history of abnormal quad screen Consults/Follow Up Additional Follow Up: Yes ([address] Dewey, call Wednesday to make appointment. 6 week exam) Activity Activity: Activity as Tolerated Driving Instructions: No Driving for 1 Week NO SMOKING: NO SMOKING Nothing Inside Vagina: No Douching, No [place], No Tampons Diet Discharge Diet: No Restrictions Symptoms to Report to : Swelling Increased, Bleeding Excessive, Pain Increased, Fever Over 101 Degrees F, Vaginal Bleeding Increase, Vaginal Discharge Foul For Any Problems or Questions: Contact Your Physician Skin/Wound Care Infection Signs and Symptoms: Increased Redness, Foul Odor of Wound, Increased Drainage, Skin Itchy or Has a Rash, Increased Swelling, Temperature Above 101 F Operative Area Clean and Dry: Keep Incision Clean/Dry Stitches/May/Dermabond: Dermabond Bathing Instructions: GENESIS Rosado DO Aug 22, 2016 10:07
[2016-08-22] MEDS: DOCUSATE SODIUM 100 MG (COLACE) CAP PO SCH (10:31)
[2016-08-22 10:40] VITALS: BP 104/67
[2016-08-22 16:24] VITALS: BP 100/69
== END 2016-08-22 17:55 | disposition home or self-care (01) | DRG 765 ==
LOC: LDRP 06:02
PROVIDERS: ADMIT Obstetrics & Gynecology; ATTEND Obstetrics & Gynecology
PROC: 10D00Z1 Extraction of Products of Conception, Low, Open Approach (ICD-10-PCS; principal; 2016-08-20 07:09)
DX: O90.81 Anemia of the puerperium (principal); D62 Acute posthemorrhagic anemia; Z87.59 Personal history of other complications of pregnancy, childbirth and the puerperium; Z37.0 Single live birth; Z3A.39 39 weeks gestation of pregnancy
CPT/HCPCS: 36415; 81000; 85025; 86850; 86900; 86901; 87088; 94664

== ENCOUNTER → 2017-02-22 | Outpatient (CLI) | payer BC ==
[~2017-02-22] MED LIST changes: -CITRIC ACID/SOB CIT (BICITRA) 30 ML UDC ONE; +DOCU100C37 PO; +HYDR-3812 PO; -LEVO5TAB19 PO; +LEVO5TAB28 PO; -METOCLOPRAMIDE INJ 10 MG/2 ML (REGLAN) ONE
--- NOTE | 2017-02-22 11:14 | Diagnostic Imaging Report ---
PA view of the chest. INDICATION: Cough and shortness of breath. FINDINGS: The lungs are clear. The heart size is normal. No effusion or pneumothorax. The mediastinum and jonny appear unremarkable. IMPRESSION: Unremarkable exam. Dictated by: Dictated on workstation # [id number]
== END ==
LOC: RAD 10:55
DX: R05 Cough (principal); R06.02 Shortness of breath
CPT/HCPCS: 71010

== ENCOUNTER 2017-12-08 05:33 | Outpatient (CLI) | payer BC ==
[~2017-12-08] VITALS: Ht 160 cm; Wt 79.5 kg
[~2017-12-08 05:33] MED LIST changes: +ACHD5005 PO; -HYDR-3812 PO
[2017-12-08] MEDS ORDERED: PHEN37.53 PO (13:14)
[2017-12-08] MEDS ORDERED: CLON0.252 PO (13:14)
[2017-12-08] MEDS ORDERED: ACET250T3 PO (13:14)
[2017-12-08] MEDS ORDERED: CRAN500T2 PO (13:14)
[2017-12-09] MEDS ORDERED: ACHD5005 PO (09:43)
[2017-12-09] MEDS ORDERED: IBUP-1773 PO (09:43)
== END 2017-12-08 13:24 ==
LOC: PREOP 05:33
PROVIDERS: ATTEND Obstetrics & Gynecology
DX: Z01.818 Encounter for other preprocedural examination (principal); R10.2 Pelvic and perineal pain; N94.10 Unspecified dyspareunia

== ENCOUNTER 2017-12-09 08:15 | Day surgery (SDC) | payer BC ==
[~2017-12-09] VITALS: Ht 160 cm; Wt 79.5 kg
[~2017-12-09 08:15] MED LIST changes: +ACET250T3 PO; +CLON0.252 PO; +CRAN500T2 PO; +PHEN37.53 PO
[2017-12-09] MEDS ORDERED: BUPIVACAINE 0.25% 30 ML (SENSORCAINE) VIAL ONE (08:36)
[2017-12-09 08:52] VITALS: BP 106/74
[2017-12-09 08:52] LABS: BASOPHILS % (AUTO) 0 % (0-10); EOSINOPHILS # (AUTO) 0.1 10^3/uL (0.0-0.3); EOSINOPHILS % (AUTO) 1 % (0-10); HEMATOCRIT 41 % (35-52); LYMPHOCYTES # (AUTO) 2.5 X 10^3 (1.0-4.0); LYMPHOCYTES % (AUTO) 39 % (12-44); MEAN CORPUSCULAR HEMOGLOBIN 29 PG (25-34); MEAN CORPUSCULAR HGB CONC 34 G/DL (32-36); MEAN CORPUSCULAR VOLUME 84 FL (80-99); MEAN PLATELET VOLUME 9.7 FL (7.4-10.4); MONOCYTES # (AUTO) 0.4 X 10^3 (0.0-1.0); MONOCYTES % (AUTO) 6 % (0-12); NEUTROPHILS # (AUTO) 3.6 X 10^3 (1.8-7.8); NEUTROPHILS % (AUTO) 55 % (42-75); PLATELET COUNT 332 10^3/uL (130-400); RED BLOOD COUNT 4.87 10^6/uL (4.35-5.85); RED CELL DISTRIBUTION WIDTH 13.5 % (10.0-14.5); WHITE BLOOD COUNT 6.6 10^3/uL (4.3-11.0)
[2017-12-09] MEDS: LACTATED RINGERS 1,000 ML IV PRN ×2 (08:55→10:10)
[2017-12-09] MEDS ORDERED: fentaNYL INJECTION 100 MCG/2 ML AMP ONE ×2 (09:34→10:15)
[2017-12-09] MEDS ORDERED: MIDAZOLAM 2 MG/2 ML (VERSED) VIAL ONE (09:34)
[2017-12-09] MEDS ORDERED: D5 LR IV SOLUTION 1,000 ML IV SCH (09:38)
--- NOTE | 2017-12-09 09:38 | Progress Note-Pre Operative ---
Pre-Operative Progress Note H&P Reviewed The H&P was reviewed, patient examined and no changes noted. Date Seen by Provider: Dec 09, 2017 Time Seen by Provider: 09:20 Date H&P Reviewed: Dec 09, 2017 Time H&P Reviewed: 09:15 Pre-Operative Diagnosis: Acute pelvic pain BAILEY VALENCIA DO Dec 09, 2017 9:37 am
--- NOTE | 2017-12-09 09:42 | Discharge Inst-Women's Service ---
Discharge Inst-Women's Serv Depart Medication/Instructions New, Converted or Re-Newed RX: RX on Chart Consults/Follow Up Additional Follow Up: Yes Orders/Referrals Dr. Dewey in 2-3 weeks Activity Activity: Activity as Tolerated Driving Instructions: No Driving for 1 Week NO SMOKING: NO SMOKING Nothing Inside Vagina: No Douching, No [place], No Tampons Diet Discharge Diet: No Restrictions Symptoms to Report to : Bleeding Excessive, Pain Increased, Fever Over 101 Degrees F, Vaginal Bleeding Increase, Questions/Concerns For Any Problems or Questions: Contact Your Physician Skin/Wound Care Infection Signs and Symptoms: Increased Redness, Foul Odor of Wound, Increased Drainage, Skin Itchy or Has a Rash, Increased Swelling, Temperature Above 101 F Operative Area Clean and Dry: Keep Incision Clean/Dry Stitches/May/Dermabond: Dermabond, Care of Stitches Bathing Instructions: BAILEY Seals DO Dec 09, 2017 9:42 am
[2017-12-09] MEDS ORDERED: IBUP-1773 PO (09:43)
[2017-12-09] MEDS ORDERED: ACHD5005 PO (09:43)
[2017-12-09] MEDS ORDERED: ONDANSETRON 4 MG/2 ML (SDV) Z0FRAN IVP PRN ×2 (09:45→10:45)
[2017-12-09] MEDS ORDERED: KETOROLAC 30 MG/ML VIAL IVP ONE (09:45)
[2017-12-09] MEDS ORDERED: HYDROcodone/APAP 5 MG/325 MG (LORTAB) TAB PO PRN (09:45)
[2017-12-09] MEDS ORDERED: ONDANSETRON 4 MG/2 ML (SDV) Z0FRAN ONE (09:56)
[2017-12-09] MEDS ORDERED: SEVOFLURANE (ULTANE) 15 ML INHAL SOLN ONE (09:56)
[2017-12-09] MEDS ORDERED: LIDOCAINE PF 2% 5 ML (XYLOCAINE) VIAL ONE (09:56)
[2017-12-09] MEDS ORDERED: DEXAMETHASONE 10 MG/ML (DECADRON) 1 ML VIAL ONE (09:56)
[2017-12-09] MEDS ORDERED: ROCURONIUM 10 MG/ML 5 ML SYRINGE IV ONE (09:56)
[2017-12-09] MEDS ORDERED: PHENYLEPHRINE 100 MCG/ML 10 ML (ANESTHESIA) SYR ONE (09:56)
[2017-12-09] MEDS ORDERED: NEOSTIGMINE 1 MG/ML 5 ML SYRINGE ONE (09:57)
[2017-12-09] MEDS ORDERED: GLYCOPYRROLATE 0.2 MG/ML (ROBINUL) 2 ML VIAL ONE ×2 (09:57→10:02)
[2017-12-09] MEDS ORDERED: proPOfol 200 MG/20 ML (DIPRIVAN) VIAL IV ONE (10:25)
[2017-12-09] MEDS ORDERED: NALOXONE 0.4 MG/ML 1 ML (NARCAN) VIAL ONE (10:37)
[2017-12-09] MEDS ORDERED: HYDROmorphone 1 MG/ML (DILAUDID) 1 ML SYRINGE ONE (10:52)
[2017-12-09] MEDS: HYDROmorphone 1 MG/ML (DILAUDID) 1 ML SYRINGE IV PRN ×2 (10:55→11:05)
[2017-12-09 11:35] VITALS: BP 102/68
[2017-12-09 12:05] VITALS: BP 96/59
[2017-12-09 12:35] VITALS: BP 86/53
[2017-12-09 13:35] VITALS: BP 100/61
[2017-12-09 14:30] VITALS: BP 100/61
--- NOTE | 2017-12-09 15:42 | Anesthesia-General Post-Op ---
General Patient Condition Mental Status/LOC: Same as Preop Cardiovascular: Satisfactory Nausea/Vomiting: Absent Respiratory: Satisfactory Pain: Controlled Complications: Absent Post Op Complications Complications None Follow Up Care/Instructions Patient Instructions None needed. Anesthesia/Patient Condition Patient Condition Patient was seen after the procedure and she was doing well, no complaints, stable vital signs, no apparent adverse anesthesia problems. DORINA BROOKS DO Dec 09, 2017 15:41
--- OUTSIDE RECORDS SUMMARY | 2017-12-09 15:50 | XMS REPORT | Clinical Summary ---
Author Author [facility] Organization [facility] Address Unknown Phone Unavailable Care Team Providers Care Fresh Food Manager Name Role Phone Ja Lim MD PCP Michael Emerson MD Unavailable Source Comments Some departments are not documenting in the electronic medical record. If you do not see the information that you expected, contact Release of Information in the Health Information Management department at [phone] for further assistance in locating additional records.[facility] Allergies Active Allergy Reactions Severity Noted Date Comments Morphine NAUSEA AND VOMITING 01/13/2011 Current Medications Prescription Sig. Disp. Refills Start [...] Sprays into nose Active 0.6 % NA [place] as directed daily. polyethylene glycol 3350 Take [...] Comments Yes 1 Glasses of 0.6 wine Sex Assigned at Date Recorded Not on file Last Filed Vital Signs Vital Sign Reading Time Taken Blood Pressure 97/60 02/17/2011 11:11 AM CDT Pulse 62 02/17/2011 11:11 AM CDT Temperature 36.2 C (97.1 F) 02/17/2011 11:11 AM CDT Respiratory Rate 23 02/17/2011 11:11 AM CDT Oxygen Saturation - - Inhaled Oxygen - - Concentration Weight 64.1 kg (141 lb 4.8 oz) 02/17/2011 11:11 AM CDT Height 160 cm (5' 3") 02/17/2011 11:11 AM CDT Body Mass Index 25.03 02/17/2011 11:11 AM CDT Plan of Treatment Health Maintenance Due Date Last Done Comments PHYSICAL (COMPREHENSIVE) 1988 EXAM PERTUSSIS VACCINE 1992 HIV SCREENING 1996 TETANUS VACCINE 1998 CERVICAL CANCER SCREENING 11/25/2011 INFLUENZA VACCINE 02/07/2018 Results Not on filefrom Last 3 Months
--- OUTSIDE RECORDS SUMMARY | 2017-12-09 15:50 | XMS REPORT ---
Author Author WILSON HART Organization [facility] Address [address] [place] [address] Care Team Providers Care Concrete Laborer Name Role Phone TANNER WILSON Unavailable PROBLEMS Type Condition ICD9-CM Code [id number] Code Onset Dates Condition Status SNOMED Code Problem Reactive depression F32.9 Active 81048414 Problem Adjustment disorder with depressed mood 309.0 Active 32884169 ALLERGIES No Information ENCOUNTERS Encounter Location Date Diagnosis [facility] [id number] [place] [phone] Dec, Reactive depression F32.9 [facility] [id number] [place] [phone] Oct, Physical examination of employee Z02.89 and Screening for tuberculosis Z11.1 [facility] [address] [place], [place] [id number] [place] [phone] Dec, Physical examination of employee V70.5 and Encounter for drug screening V72.85 [facility] [id number] [place] [phone] Mar, [facility] [id number] [place] [phone] Mar, [facility] [id number] [place] [phone] Mar, [facility] [id number] [place] [phone] Mar, [facility] [id number] [place] [phone] Aug, [facility] [id number] [place] [phone] Feb, IMMUNIZATIONS No Known Immunizations SOCIAL HISTORY Never Assessed REASON FOR VISIT Couple Intake PLAN OF CARE Activity Details Follow Up 1 Week Reason:Marriage therapy VITAL SIGNS MEDICATIONS Unknown Medications RESULTS No Results PROCEDURES Procedure Date Ordered Result Body Site Psych diagnostic evaluation, new patient Dec 09, 2016 INSTRUCTIONS MEDICATIONS ADMINISTERED No Known Medications MEDICAL (GENERAL) HISTORY Type Description Date Medical History Headaches Surgical History ovarian cyst
--- NOTE | 2017-12-09 18:01 | OPERATIVE REPORT ---
DATE OF SERVICE: 12/09/2017 PREOPERATIVE DIAGNOSES: A 37-year-old female with acute onset pelvic pain. POSTOPERATIVE DIAGNOSES: A 37-year-old female with acute onset pelvic pain. PROCEDURE PERFORMED: Laparoscopic cauterization of peritoneal implants on the uterosacral ligaments. SURGEON: Bailey Valencia DO. TOOL CRIB ATTENDANT: PAUL Contreras. ANESTHESIA: General endotracheal. ESTIMATED BLOOD LOSS: Minimal. URINE OUTPUT: 40 Ml, clear at the end of the procedure. FLUIDS: 1500 mL lactate Ringer solution. FINDINGS: Grossly normal appearing uterus, bilateral fallopian tubes and ovaries with some pigmented serosal implants along the uterosacral ligaments bilaterally. Grossly normal appearing vaginal mucosa, cervix and external female genitalia. SPECIMEN SENT: None. INDICATIONS: This 37-year-old female is a patient who has a consultation in my office for ongoing issues with acute onset pelvic pain which has been lasting for the past month to six weeks. It was acute in onset and has been residual in nature. The patient reports that it continues to get worse. Initial testing including ultrasound and STD testing, infectious disease testing was all found to be negative. Finally, we discussed the possibility of endometriosis and the possibility of adhesive disease. After everything was discussed with the patient, we discussed how laparoscopy may be the long way to identify, diagnose and treat the underlying cause of her pain. Risks of the procedure were discussed with the patient in detail as well as the possibility of not finding anything. Risk of bleeding, infection, damage to surrounding structures including but not limited to bowel, bladder, ureter, kidneys, risk for postoperative complications, risk from anesthesia and even were all discussed. Everything was discussed and all of the questions were answered with the patient and her present, consent was obtained. The patient was taken to the operating room. OPERATIVE REPORT IN DETAIL: Once in the operating room, general anesthesia was found to be adequate, placed in dorsal lithotomy position, prepped and draped in normal sterile fashion. A Heller catheter is placed using sterile technique. A weighted speculum was inserted into the patient's vagina, which allows me to visualize the cervix, which was grasped with an Allis clamp at the 12 o'clock position. I then gently sound the uterine cavity depth, which found to be 8 cm. I placed a Synchro uterine manipulator 8 cm tip into the uterine cavity deploying the balloon. I removed the Allis clamp and removed the weighted speculum and then I am able to appreciate excellent bimanual manipulation on abdominal exam. I then performed a change of gloves and took my attention to the abdomen where infraumbilically I infiltrated this area using 0.25% Marcaine to make a 5 mm incision and directed a Veress needle through the incision until the intraperitoneal placement was confirmed using a saline drop test. I then proceeded with insufflation using CO2 gas and opening pressure of 5 mmHg was noted. I proceeded to maximum pressure of 15 mmHg, at which point I removed the Veress needle and introduced a 5 mm blunt trocar. Once this was in place, I am able to confirm intraperitoneal placement using the laparoscope. I then placed a suprapubic trocar and a 5 mm as well in order to manipulate the anatomy in similar fashion. The skin was infiltrated using 0.25% Marcaine. A 5 mm incision was made and the trocars were placed. I then had the patient placed in steep Trendelenburg after a brief scanning of the upper abdominal anatomy appears grossly normal. The appendix is identified and found to be normal as well. Bilateral ovaries, fallopian tubes and uterus itself appeared normal. There are some pigmented areas on the serosal surface of the uterosacral ligaments that were cauterized using hook cautery after which there was no active bleeding noted from any of my dissection planes. There was no other abnormality at that point, so I deemed the procedure complete. I released insufflation through the trocar sites and removed the laparoscopic instruments. I introduced 10 mL of 0.25% Marcaine into the peritoneal cavity for postoperative pain management. Once the insufflation was released from the trocar sites, I removed these trocars as well. The skin was reapproximated using Dermabond and Band-Aids. The patient tolerated the procedure well and was sent to recovery in stable condition. Lap and sponge counts were correct at the end of the procedure. Instrument count was correct as well. Job ID: [id number] DocumentID: [id number] Dictated Date: 12/09/2017 11:12:50 Clothes Designer Date: 12/09/2017 18:01:02 Dictated By: BAILEY VALENCIA DO
== END 2017-12-09 14:30 | disposition home or self-care (01) ==
LOC: SDC 08:15
PROVIDERS: ATTEND Obstetrics & Gynecology
DX: N80.3 Endometriosis of pelvic peritoneum (principal); N94.10 Unspecified dyspareunia
CPT/HCPCS: 36415; 84703; 85025; 86850; 86900; 86901; 87081; 94664

== ENCOUNTER → 2018-09-20 | Outpatient (CLI) | payer BC ==
[~2018-09-20] MED LIST changes: +HYDR-4226 PO; -HYDR-757 PO
--- NOTE | 2018-09-20 13:54 | Diagnostic Imaging Report ---
PROCEDURE: US Non-ob pelvis comp/trans. INDICATION: Abnormal uterine bleeding TECHNIQUE: Multiple real time white scale sonographic images were obtained of the pelvis transabdominally and transvaginally. CORRELATION STUDY: 10/27/2017 FINDINGS: UTERUS: 8.5 x 5.2 x 3.8 cm. The uterus appears unremarkable. ENDOMETRIUM: 3 mm. The endometrium appearing unremarkable. Cervical nabothian cysts are present. RIGHT OVARY: 3.7 x 2.0 x 2.8 cm The right ovary has an unremarkable appearance. No concerning mass. Normal blood flow. LEFT OVARY: Perhaps very limited in visualization on transabdominal imaging. Not visualized on endovaginal imaging. No definitive abnormal left adnexal mass lesion. Small free pelvic fluid at the cul-de-sac. IMPRESSION: 1. Uterus and endometrium appearing unremarkable. Distal note made of probable cervical nabothian cysts. 2. Right ovary visualized and unremarkable. Left ovary not visualized, perhaps obscured by bowel and/or positional. Dictated by: Dictated on workstation # [id number]
== END ==
LOC: RAD 09:49
PROVIDERS: ATTEND Obstetrics & Gynecology
DX: N93.8 Other specified abnormal uterine and vaginal bleeding (principal); N94.19 Other specified dyspareunia
CPT/HCPCS: 76830; 76856

== ENCOUNTER 2018-10-12 13:44 | Outpatient (CLI) | payer BC ==
[~2018-10-12] VITALS: Ht 160 cm; Wt 83.0 kg
[2018-10-12 13:53] VITALS: BP 123/79
[2018-10-12] MEDS ORDERED: DIAZ5TAB3 PO (14:06)
[2018-10-12] MEDS ORDERED: BUTA1TAB9 PO (14:06)
[2018-10-12] MEDS ORDERED: DEXA0.5T PO (14:06)
[2018-10-12] MEDS ORDERED: GALC120P SQ (14:06)
[2018-10-12] MEDS ORDERED: CYCL10TA9 PO (14:06)
[2018-10-12] MEDS ORDERED: BACL10TA PO (14:06)
[2018-10-12] MEDS ORDERED: FURO20TA4 PO (14:06)
[2018-10-12 14:49] LABS: BASOPHILS % (AUTO) 0 % (0-10); EOSINOPHILS % (AUTO) 0 % (0-10); HEMATOCRIT 42 % (35-52); HEMOGLOBIN 14.4 G/DL (11.5-16.0); LYMPHOCYTES # (AUTO) 2.5 X 10^3 (1.0-4.0); LYMPHOCYTES % (AUTO) 33 % (12-44); MEAN CORPUSCULAR HEMOGLOBIN 29 PG (25-34); MEAN CORPUSCULAR HGB CONC 34 G/DL (32-36); MEAN CORPUSCULAR VOLUME 85 FL (80-99); MONOCYTES # (AUTO) 0.4 X 10^3 (0.0-1.0); MONOCYTES % (AUTO) 6 % (0-12); NEUTROPHILS # (AUTO) 4.6 X 10^3 (1.8-7.8); NEUTROPHILS % (AUTO) 61 % (42-75); PLATELET COUNT 327 10^3/uL (130-400); RED CELL DISTRIBUTION WIDTH 13.5 % (10.0-14.5); WHITE BLOOD COUNT 7.5 10^3/uL (4.3-11.0)
[2018-10-12] MEDS ORDERED: OMEG-154 PO (15:22)
[2018-10-12] MEDS ORDERED: ZOLM2.5S NS (15:22)
[2018-10-12] MEDS ORDERED: FLUT9.9S NS (15:22)
[2018-10-12] MEDS ORDERED: POTA99TA21 PO (15:22)
[2018-10-12] MEDS ORDERED: MAGN250T13 PO (15:22)
[2018-10-13] MEDS ORDERED: PROM25TA14 PO (15:47)
[2018-10-13] MEDS ORDERED: CLON0.5T13 PO (15:47)
[2018-10-13] MEDS ORDERED: DIHY1SPR NS (15:47)
== END 2018-10-12 14:25 | disposition home or self-care (01) ==
LOC: PREOP 13:44
PROVIDERS: ATTEND Obstetrics & Gynecology
DX: Z01.812 Encounter for preprocedural laboratory examination (principal); Z11.2 Encounter for screening for other bacterial diseases; R10.2 Pelvic and perineal pain; N81.10 Cystocele, unspecified
CPT/HCPCS: 36415; 85025; 86850; 86900; 86901; 87081

== ENCOUNTER 2018-10-20 09:58 | Day surgery (SDC) | payer BC ==
--- NOTE | 2018-10-13 15:53 | NUR ---
HAD A LIST OF MEDICATIONS RECENTLY FILLED SENT OVER FROM [facility]. DILLONS FILLED: 10-12-18 ZOMIG 2.5MG NASAL SPRAY (HAS BEEN REPLACED BY MIGRANAL) 10-12-18 MIGRANAL 1 SPRAY EACH NOSTRIL AT ONSET OF HEADACHE 10-04-18 EMGALITY 120MG INJECTION MONTHLY 09-09-18 FLEXERIL 10MG HS PRN #30 (TAKES DAILY NEEDED FOR HEADACHES) 09-09-18 CLONAZEPAM 0.5MG BID #60 09-09-18 VALIUM 5MG Q12 H PRN 30 (TAKES PRN FOR HEADACHES) 09-07-18 PHENTERMINE 37.5MG DAILY #30 09-05-17 PROMETHAZINE 25MG Q6H PRN NAUSEA #30 09-05-18 BACLOFEN 10MG Q8H PRN SPAMS #45 (TAKES FOR HEADACHES) DEXAMETHASONE 0.5MG DAILY #30 (TAKES ONCE WEEKLY ON WEDNESDAYS NOW) 2017 FUROSEMIDE 20MG DAILY PRN #30 (TAKES 1 TO 2 NEEDED FOR SWELLING) SHE TAKES THE FOLLOWING OTC: FISH OIL POTASSIUM CRANBERRY MAGNESIUM FLONASE SHE ALSO TAKES NATURE THROID 130MG 1.5 TABS DAILY - PREOP STATES THE CALLED AND VERIFIED THIS DOSE WITH [facility].
[~2018-10-20] VITALS: Ht 160 cm; Wt 83.0 kg
[2018-10-20] VITALS (9 sets, daily range): BP systolic 100–115; BP diastolic 53–83
[~2018-10-20 09:58] MED LIST changes: +BACL10TA PO; +BUTA1TAB9 PO; +CLON0.5T13 PO; +CYCL10TA9 PO; +DIAZ5TAB3 PO; +DIHY1SPR NS; +FURO20TA4 PO; +GALC120P SQ; +MAGN250T13 PO; +OMEG-154 PO; +POTA99TA21 PO; +PROM25TA14 PO; +ZOLM2.5S NS
[2018-10-20] MEDS ORDERED: LACTATED RINGERS 1,000 ML IV ONE (11:01)
[2018-10-20] MEDS ORDERED: ceFAZolin 2 GM/50 ML NS 50 ML IV ONE (11:15)
[2018-10-20] MEDS ORDERED: metroNIDAZOLE 500MG/100ML IVPB 100 ML IV ONE (11:15)
[2018-10-20] MEDS ORDERED: CATHETER FLUSH 10 ML SYR IV PRN (11:15)
[2018-10-20] MEDS: LACTATED RINGERS 1,000 ML IV PRN ×2 (11:35→14:40)
[2018-10-20] MEDS ORDERED: FAMOTIDINE 20MG/2ML IV (PEPCID) ONE (12:52)
[2018-10-20] MEDS ORDERED: LACTATED RINGERS 1,000 ML IV SCH (12:56)
--- NOTE | 2018-10-20 12:56 | Progress Note-Pre Operative ---
Pre-Operative Progress Note H&P Reviewed The H&P was reviewed, patient examined and no changes noted. Date Seen by Provider: Oct 20, 2018 Time Seen by Provider: 12:45 Date H&P Reviewed: Oct 20, 2018 Time H&P Reviewed: 12:55 Pre-Operative Diagnosis: CPP, POP, Cystocele BAILEY VALENCIA DO Oct 20, 2018 12:56
[2018-10-20] MEDS ORDERED: BUPIVACAINE 0.25% 30 ML (SENSORCAINE) VIAL ONE (12:58)
[2018-10-20] MEDS ORDERED: ESTRADIOL VAGINAL CREAM 42.5 GM (ESTRACE) VG ONE (12:58)
[2018-10-20] MEDS ORDERED: VASOPRESSIN INJECTION 20 UNIT/ML VIAL ONE (12:58)
[2018-10-20] MEDS ORDERED: NS (IVPB) 100 ML ONE (12:58)
[2018-10-20] MEDS ORDERED: CHLORASEPTIC LOZENGE MM PRN (13:00)
[2018-10-20] MEDS ORDERED: ONDANSETRON 4 MG/2 ML (SDV) Z0FRAN IV PRN (13:00)
[2018-10-20] MEDS ORDERED: ZOLPIDEM 5 MG (AMBIEN) TAB PO PRN (13:00)
[2018-10-20] MEDS ORDERED: DOCUSATE SODIUM 100 MG (COLACE) CAP PO PRN (13:00)
[2018-10-20] MEDS ORDERED: SIMETHICONE 80 MG (MYLICON) CHEW PO PRN (13:00)
[2018-10-20] MEDS ORDERED: ANTACID SUSP 30 ML UDC (MYLANTA) PO PRN (13:00)
--- NOTE | 2018-10-20 13:00 | Discharge Inst-Women's Service ---
Discharge Inst-Women's Serv Depart Medication/Instructions New, Converted or Re-Newed RX: RX on Chart Consults/Follow Up Additional Follow Up: Yes Orders/Referrals Dr. Dewey in 7-10 days and in 8 weeks Activity Activity: Activity as Tolerated Driving Instructions: No Driving for 1 Week NO SMOKING: NO SMOKING Nothing Inside Vagina: No Douching, No Flovilla, No Tampons Diet Discharge Diet: No Restrictions Symptoms to Report to : Bleeding Excessive, Pain Increased, Fever Over 101 Degrees F, Vaginal Bleeding Increase, Questions/Concerns For Any Problems or Questions: Contact Your Physician Skin/Wound Care Infection Signs and Symptoms: Increased Redness, Foul Odor of Wound, Increased Drainage, Skin Itchy or Has a Rash, Increased Swelling, Temperature Above 101 F Stitches/May/Dermabond: Dermabond, Care of Stitches Bathing Instructions: BAILEY Seals DO Oct 20, 2018 13:00
[2018-10-20] MEDS ORDERED: LIDOCAINE PF 2% 5 ML (XYLOCAINE) VIAL ONE (13:01)
[2018-10-20] MEDS ORDERED: SEVOFLURANE (ULTANE) 15 ML INHAL SOLN ONE (13:01)
[2018-10-20] MEDS ORDERED: proPOfol 200 MG/20 ML (DIPRIVAN) VIAL IV ONE (13:01)
[2018-10-20] MEDS ORDERED: ROCURONIUM 10 MG/ML 5 ML SYRINGE IV ONE ×2 (13:01→13:04)
[2018-10-20] MEDS ORDERED: ONDANSETRON 4 MG/2 ML (SDV) Z0FRAN ONE (13:01)
[2018-10-20] MEDS ORDERED: DEXAMETHASONE 10 MG/ML (DECADRON) 1 ML VIAL ONE (13:01)
[2018-10-20] MEDS ORDERED: HYDR-34 PO (13:02)
[2018-10-20] MEDS ORDERED: SIME80TA16 PO (13:02)
[2018-10-20] MEDS ORDERED: fentaNYL INJECTION 100 MCG/2 ML AMP ONE ×2 (13:02→15:40)
[2018-10-20] MEDS ORDERED: MIDAZOLAM 2 MG/2 ML (VERSED) VIAL ONE (13:02)
[2018-10-20] MEDS ORDERED: IBUP-844 PO (13:02)
[2018-10-20] MEDS ORDERED: DOCU100C37 PO (13:02)
[2018-10-20] MEDS ORDERED: FAMOTIDINE 20MG/2ML IV (PEPCID) IVP ONE (13:45)
[2018-10-20] MEDS ORDERED: morphine INJ 10 MG/ML 1ML (SYR OR VIAL) IVP ONE (15:45)
[2018-10-20] MEDS ORDERED: ONDANSETRON 4 MG/2 ML (SDV) Z0FRAN IVP PRN (15:45)
[2018-10-20] MEDS ORDERED: MEPERIDINE (DEMEROL) INJ 50 MG/ML IVP ONE (15:45)
[2018-10-20] MEDS ORDERED: fentaNYL INJECTION 100 MCG/2 ML AMP IVP ONE (15:45)
[2018-10-20] MEDS ORDERED: KETOROLAC 30 MG/ML VIAL ONE (15:55)
[2018-10-20] MEDS: KETOROLAC 30 MG/ML VIAL IV PRN ×2 (16:00→21:03)
--- NOTE | 2018-10-20 16:30 | NUR ---
NAYE BROWN presented to unit via BED from RECOVERY, accompanied by Shimon RODRIGUEZ RN AFTER HAVING SURGERY. REPORT RECEIVED. NAYE BROWN oriented to bed controls, call light, TV, heat, and A/C controls. S/O AT THE BEDSIDE.
--- NOTE | 2018-10-20 16:45 | NUR ---
OR TUBING CONVERTED TO PUMP TUBING, FLUIDS INFUSING @ 125 ML/HR/PUMP. INITIAL SHIFT ASSESSMENT COMPLETED; SEE INTERVENTION FOR FURTHER. SCDS ON CALVES BILATERALLY. GREGORY TO D/D. FAMILY TO BEDSIDE.
[2018-10-20] MEDS ORDERED: HYDROcodone/APAP 7.5 MG/325 MG (LORTAB, LORCET PLUS) TABLET PO ONE ×2 (17:47→17:48)
[2018-10-20] MEDS: HYDROcodone/APAP 7.5 MG/325 MG (LORTAB, LORCET PLUS) TABLET PO PRN (17:54)
--- NOTE | 2018-10-20 17:54 | NUR ---
DR. VALENCIA JUST ROUNDED ON PT. LORTAB GIVEN PO; SEE EMAR FOR FURTHER. PT HAS KEPT DOWN HER CRACKERS. NO FURTHER NEEDS VOICED.
--- NOTE | 2018-10-20 22:14 | OPERATIVE REPORT ---
DATE OF SERVICE: PREOPERATIVE DIAGNOSES: 1. A 37-year-old female with chronic pelvic pain. 2. Pelvic organ prolapse. 3. Grade II cystocele. POSTOPERATIVE DIAGNOSES: 1. A 37-year-old female with chronic pelvic pain. 2. Pelvic organ prolapse. 3. Grade II cystocele. PROCEDURE PERFORMED: Robotic-assisted total laparoscopic hysterectomy with bilateral salpingectomy and anterior colporrhaphy. SURGEON: Giancarlo Dewey DO. ANESTHESIA: General endotracheal. ESTIMATED BLOOD LOSS: 50 mL. URINE OUTPUT: 100 mL clear at the end of the procedure. FLUIDS: 2100 mL of lactated Ringer's solution. FINDINGS: Grossly normal appearing uterus, bilateral fallopian tubes and ovaries with a descent of the cervix down to the vaginal introitus and a grade II cystocele, no rectocele. SPECIMENS SENT: Uterus, bilateral fallopian tubes. INDICATIONS FOR PROCEDURE: This 37-year-old female patient had been seen in my office, who has had ongoing issues with chronic pelvic pain and pressure for the past year to [id number]-h-half issues with urination as well. We tried many more conservative options including Kegel exercises and physical therapy was discussed; however, the patient has seen no improvement. She wanted to move forward with hysterectomy as the pelvic pain she was having was debilitating and causing issues with intercourse, pain with intercourse and issues with her marriage. Risks of the procedure were discussed with the patient in detail including, but not limited to risk of bleeding, infection, damage to surrounding structures including bladder, bowel, ureter, kidneys, possible need for reoperation. We discussed recovery time frame, possible postoperative complications. We discussed risks from anesthesia and even . After everything was discussed with the patient in detail, consent was reviewed in detail and then obtained. She was then taken to the operating room. OPERATIVE REPORT IN DETAIL: Once in the operating room, general anesthesia was found to be adequate. She was placed in the dorsal lithotomy position, prepped and draped in normal sterile fashion. A timeout was performed. A Heller catheter was placed using sterile technique. A weighted speculum was inserted into the patient's vagina. A right angle retractor was used to visualize the cervix, which was grasped at a 12 o'clock position using a long Allis clamp. An 0 Vicryl suture was then placed in the anterior lip of the cervix, which was used as my retraction point and the Allis clamp was then removed. The uterine cavity depth was then sounded and found to be 8 cm. I selected an 8 cm Viviana uterine manipulator tip and a 3.5 cm colpotomy ring, advanced manipulator tip into the uterus and pulling the balloon and the colpotomy ring was advanced around the vaginal fornix, which offered excellent uterine manipulation on bimanual. All the other instruments are then removed from the patient's vagina where I performed a change of gloves and I turned my attention to the abdomen. I infiltrated infraumbilically using 0.25% Marcaine making an 8 mm incision in this location and directed a Veress needle through the incision until intraperitoneal placement was confirmed using a saline drop test. An opening pressure of 4 mmHg was noted. I proceeded with a maximum pressure of 15 mmHg using CO2 gas. I then removed the Veress needle and introduced an 8 mm blunt da Addis camera trocar. Once this was in place, I am able to confirm intraperitoneal placement using the da Addis laparoscope. There was no evidence of damage upon entry and there was grossly normal appearing upper abdominal anatomy. I then had the patient placed in steep Trendelenburg where I was able to visualize the pelvic anatomy as described above. I placed two lateral trocars and these were both 8 mm trocars approximately 8 cm lateral to my infraumbilical trocar using the exact same fashion as the placement of the other trocars; however, these were done under direct visualization of the laparoscope. Once these were in place, I did bring the da Addis robot and docked in the appropriate fashion placing the da Addis vessel sealer in the left hand and monopolar juan in the right hand. I took my place at the operative console and performed the following dissection bilaterally starting at the uteroovarian ligament and bipolar cauterized and transected using the vessel sealer. I created within the mesosalpinx using monopolar juan and take this laterally dissecting the fallopian tube from its surrounding blood supply and achieving hemostasis using cautery. I then grasped the round ligament, bipolar cauterized and transected using the vessel sealer. I then grasped the entire broad ligament, bipolar cauterized and transected using the vessel sealer down to the level of the lower uterine segment, at which point, I the anterior and posterior leaflets of the broad ligament. The anterior leaflet was taken around to the anterior vaginal fornix. The posterior dissection was taken around to the posterior vaginal fornix skeletonize the uterine vessels laterally, which were then bipolar cauterized and transected using the vessel sealer. I then created a colpotomy at 12 o'clock position using the monopolar juan with the colpotomy ring of the Viviana uterine manipulator was identified and then took circumferentially around the manipulator amputating the cervix away from the vaginal fornix. The uterus and fallopian tubes were then removed through the vagina. I then proceeded with closing the lateral vaginal apices of the vaginal cuff using 2-0 Vicryl suture in a glaafu-fb-[id number] fashion. Cuff was suspended into the uterosacral ligaments. I closed the remainder of the vaginal cuff using 2-0 V-Loc in a running fashion, after which there was no active bleeding noted from my dissection planes. I then undocked the da Addis robot and proceeded with the remainder of the case laparoscopically by copiously irrigating the pelvis using normal saline. Once again, there was no active bleeding noted from any of my dissection planes. I then placed FloSeal hemostatic agent over all my planes of dissection to ensure excellent postoperative hemostasis and have the patient taken out of steep Trendelenburg. I removed the lateral trocars under direct visualization of the laparoscope. The infraumbilical trocar was left in place to release insufflation and introduced 10 mL of 0.25% Marcaine for postoperative pain management. This trocar was then removed. The skin of all three incisions was then reapproximated using 4-0 Monocryl in interrupted subcuticular stitches. Dermabond was applied to the incision and the bandages were placed over these. I then took my attention back to the vagina where I addressed the cystocele. The distal margin of the cystocele is identified at the bladder neck. I grasped using Allis clamp the mucosa of the vagina and infiltrated the submucosa using vasopressin in a concentration of 20 units in 100 mL of normal saline. I infiltrated the submucosa of the entire cystocele defect in this manner, after which I made an incision at the bladder neck just proximal to my Allis clamp. Once this incision was made, I was able to undermine using Metzenbaum scissors down the midline of the cystocele defect and then made an incision and incised the mucosa of the cystocele down the midline using the Metzenbaum scissors. I then did dissect the underlying vesicovaginal fascia off of the underlying vaginal mucosa and trimmed the excess vaginal mucosa allowing the defect to protrude freely through the fascial opening at that point. I then in a running fashion plication stitch using 3-0 Vicryl suture reapproximating the vesicovaginal fascia and then reapproximating the vaginal mucosa in two separate layers. Once this was done, there was no active bleeding noted from any of my dissection planes and the cystocele appeared reduced on visual inspection. I then packed the vagina using Premarin soaked vaginal packing. Heller catheter was left in place. Lap and sponge count was correct at the end of the procedure. Instrument counts were correct as well. The patient tolerated the procedure well and was taken to recovery area in stable condition. Two grams of Ancef and 500 mg of Flagyl were given preoperatively for infection prophylaxis. Job ID: [id number] DocumentID: [id number] Dictated Date: 10/20/2018 19:08:34 Quality Assurance Consultant Date: 10/20/2018 22:13:49 Dictated By: DO JEFFREY MURPHY
[2018-10-21 00:10] VITALS: BP 97/54
[2018-10-21] MEDS: HYDROcodone/APAP 7.5 MG/325 MG (LORTAB, LORCET PLUS) TABLET PO PRN ×2 (00:11→08:10)
[2018-10-21 03:12] VITALS: BP 85/56
[2018-10-21] MEDS: KETOROLAC 30 MG/ML VIAL IV PRN (03:12)
[2018-10-21] MEDS ORDERED: IBUPROFEN 600 MG (MOTRIN) TAB PO PRN (05:45)
--- NOTE | 2018-10-21 06:27 | NUR ---
Cora rt present in room at this time for IS education and initial treatment.
[2018-10-21 08:09] VITALS: BP 94/55
--- NOTE | 2018-10-21 08:15 | NUR ---
THIS RN TO BEDSIDE, PT RATING PAIN 9/10. LORTAB GIVEN PO; SEE EMAR FOR FURTHER. VS OBTAINED. INITIAL SHIFT ASSESSMENT COMPLETED; SEE INTERVENTION FOR FURTHER. SCDS ON CALVES BILATERALLY. S/O AT THE BEDSIDE. FRESH ICE PACK AND ICE WATER PROVIDED. PT VOICES THAT SHE'LL TAKE A SHOWER WHEN SHES HOME. NO FURTHER NEEDS VOICED.
[2018-10-21] MEDS ORDERED: FAMOTIDINE 20MG/2ML IV (PEPCID) IVP SCH (09:00)
--- NOTE | 2018-10-21 09:11 | NUR ---
DR. VALENCIA TO PT'S BEDSIDE.
--- NOTE | 2018-10-21 10:22 | NUR ---
DISCHARGE PAPERS PROVIDED AND REVIEWED WITH PT, PT VERBALIZES UNDERSTANDING AND DENIES ANY NEEDS OR QUESTIONS AT THIS TIME. PAPER SIGNED. FOLLOW UP APPOINTMENT CARDS AND RX'S ALL PROVIDED AND PLACED INTO DISCHARGE FOLDER. S/O AT THE BEDSIDE.
--- NOTE | 2018-10-21 10:31 | NUR ---
PT DISCHARGED FROM -307 TO PERSONAL AUTO VIA W/C IN STABLE CONDITION ACC BY THIS RN.
--- NOTE | 2018-10-21 14:14 | Anesthesia-General Post-Op ---
General Patient Condition Mental Status/LOC: Same as Preop Cardiovascular: Satisfactory Nausea/Vomiting: Absent Respiratory: Satisfactory Pain: Controlled Complications: Absent Post Op Complications Complications None Follow Up Care/Instructions Patient Instructions None needed. Anesthesia/Patient Condition Patient Condition Patient was seen this morning and she was doing well, no complaints, stable vital signs, no apparent adverse anesthesia problems. DORINA BROOKS DO Oct 21, 2018 14:14
== END 2018-10-21 10:31 | disposition home or self-care (01) ==
LOC: SDC 09:58 → LDRP 16:30 → SDC 10-21 10:31
PROVIDERS: ATTEND Obstetrics & Gynecology
DX: N80.0 Endometriosis of uterus (principal); N72 Inflammatory disease of cervix uteri; N88.8 Other specified noninflammatory disorders of cervix uteri; N81.2 Incomplete uterovaginal prolapse; K21.9 Gastro-esophageal reflux disease without esophagitis; E03.9 Hypothyroidism, unspecified; F32.9 Major depressive disorder, single episode, unspecified; I95.9 Hypotension, unspecified; Z79.899 Other long term (current) drug therapy
CPT/HCPCS: 84703; 86850; 86900; 86901; 88307; 94664

== ENCOUNTER → 2019-04-03 | Outpatient (CLI) | payer BC ==
[~2019-04-03] MED LIST changes: +HYDR-34 PO; +IBUP-844 PO; +SIME80TA16 PO
--- NOTE | 2019-04-03 18:04 | Diagnostic Imaging Report ---
PROCEDURE: US Non-ob pelvis comp/trans. TECHNIQUE: Multiple real-time grayscale images were obtained of the pelvis in various projections endovaginally. Transabdominal imaging was also performed. INDICATION: Pelvic pain. FINDINGS: The previous pelvic ultrasound exam performed on 09/20/2018 failed to show any sign of an acute pelvic abnormality. The left ovary was not well visualized, however. In the interval since the prior study, a few small follicles have developed on both ovaries. There may also be a roughly 1 x 3 cm slightly complicated cyst arising from the right ovary. There is no solid pelvic mass identified, but there is a small amount of fluid in the pelvis. In the interval since the prior exam, the patient has undergone a hysterectomy. There does seem to be a small amount of fluid within the cervix. This is nonspecific. IMPRESSION: 1. There are subcentimeter follicles associated with each ovary and there appears to be a 1 x 3 cm slightly complicated cyst arising from the right ovary. A small amount of free fluid is also evident. 2. There is no acute pelvic abnormality noted otherwise. 3. There has been an interval hysterectomy. Dictated by: Dictated on workstation # [id number]
== END ==
LOC: RAD 14:44
PROVIDERS: ATTEND Nurse Practitioner Family
DX: E28.2 Polycystic ovarian syndrome (principal); N80.9 Endometriosis, unspecified; Z90.710 Acquired absence of both cervix and uterus
CPT/HCPCS: 76830; 76856

== ENCOUNTER 2019-08-18 22:12 | Emergency (ER) | payer BC ==
[~2019-08-18] VITALS: Ht 160 cm; Wt 86.4 kg
[~2019-08-18 22:12] MED LIST changes: -CLON0.5T13 PO; +CLON0.5T4 PO; -DIAZ5TAB3 PO; +DIAZ5TAB49 PO; -MAGN400T6 PO; +MAGN400T8 PO; -TRAM50TA2 PO; +TRM50T PO
--- OUTSIDE RECORDS SUMMARY | 2019-08-18 22:19 | XMS REPORT | Clinical Summary ---
Author Author [facility] Address Unknown Phone Unavailable Care Team Providers Care Research Leader Name Role Phone Ja Lim MD PCP Michael Emerson MD Unavailable Source Comments Some departments are not documenting in the electronic medical record. If you d o not see the information that you expected, contact Release of Information in [facility] [employer] Information Management department at [phone] for further assistan ce in locating additional records.[facility] Allergies Comments Active Allergy Reactions Severity Noted Date Morphine NAUSEA AND 01/13/2011 VOMITING Medications End Date Status Medication Sig Dispensed Refills Start Date Active Glycopyrrolate 2 mg PO Take 2 mg by 0 Tab mouth twice daily. Active HYDROcodone/acetaminophen Take 1 Tab by 0 (+) (LORTAB) 7.5/500 mg mouth every 4 PO tablet hours as needed. Active phentermine(+) 37.5 mg PO Take 37.5 mg 0 tablet by mouth as Needed. Active liraglutide(+) (VICTOZA) Inject 0.6 mg 0 0.6 mg/0.1 mL (18 mg/3 into area(s) mL) SC PnIj as directed daily. Active dexamethasone (DECADRON) Take 0.5 mg 0 0.5 mg PO tablet by mouth daily. Days 10-28 Active progesterone Take 200 mg 0 micronized(+) by mouth (PROMETRIUM) 100 mg PO daily. capsule Active Olopatadine (PATANASE) Insert 2 0 0.6 % NA [place] Sprays into nose as directed daily. Active polyethylene glycol 3350 Take 17 g by 0 (GLYCOLAX; MIRALAX) 17 mouth daily. gram/dose PO powder Active IBUPROFEN PO Take 800 mg 0 by mouth daily as needed. Active diphenhydrAMINE Take 25 mg by 0 (BENADRYL) 25 mg PO mouth daily capsule as needed. Active ergocalciferol (VITAMIN Take 50,000 0 D-2) 50,000 unit PO Units by capsule mouth every 7 days. Active Cranberry 500 mg PO Cap Take by 0 mouth daily. Active VITS Take by 0 W-CA,FE,FA(<1MG) mouth daily. ( VITAMIN PO) Active Problems Problem Noted Date Neuralgia, neuritis, and radiculitis, unspecified Abdominal pain, unspecified site 01/13/2011 Other nerve root and plexus disorders 01/13/2011 Social History Date Tobacco Use Types Packs/Day Years Used Never Smoker Drinks/Week oz/Week Comments Alcohol Use 1 Glasses of wine 1.0 Yes Sex Assigned at Date Recorded Not on file Industry Job Start Date Occupation Not on file Not on file Not on file Travel End Travel History Travel Start No recent travel history available. Last Filed Vital Signs Reading Time Taken Comments Vital Sign 97/60 02/17/2011 11:11 AM CDT Blood Pressure 62 02/17/2011 11:11 AM CDT Pulse 36.2 C (97.1 F) 02/17/2011 11:11 AM CDT Temperature 23 02/17/2011 11:11 AM CDT Respiratory Rate - - Oxygen Saturation - - Inhaled Oxygen Concentration 64.1 kg (141 lb 4.8 oz) 02/17/2011 11:11 AM CDT Weight 160 cm (5' 3") 02/17/2011 11:11 AM CDT Height 25.03 02/17/2011 11:11 AM CDT Body Mass Index Plan of Treatment Health Maintenance Due Date Last Done Comments DTAP/TDAP VACCINES ( - 1992 Tdap) HIV SCREENING 1996 PHYSICAL (COMPREHENSIVE) 11/25/1999 EXAM CERVICAL CANCER SCREENING 2002 INFLUENZA VACCINE 12/09/2019 Results Not on filefrom Last 3 Months
--- OUTSIDE RECORDS SUMMARY | 2019-08-18 22:21 | XMS REPORT | CCD ---
Author Author Heidi Otero D.O., DO [facility] Address [address] [place] [address] Phone Care Team Providers Care [employer] Name Role Phone Maggie Otero D.O., PP Unavailable CCM Unavailable Summary Purpose Interface Exchange Insurance Providers Payer name Policy type / Coverage type Covered democrat ID Effective Begin Date Effective End Date Blue Cross Blue Shield Blue Cross/Bl ue Shield [id number] 2018 Un known Family History Family History data not found Social History Social History Element Codes Description Effective Dates Tobacco history SNOMED CT: 267883863 Never smoker 01/24/2015 Allergies, Adverse Reactions, Alerts Substance Reaction Codes Entered Date Inactivated Date Status * NO KNOWN FOOD TALHA RGIES Unknown 11/04/2009 No Inactive Date Active _ Unknown 11/04/2009 No Inactive Date Active MORPHINE AND RELATED Unknown 11/04/2009 No Inactive Date Active Past Medical History Illness Codes Condition Status Onset Date Resolved Date FLU VACCINE ICD-9: V04.81 ICD-10: Z23 Active 02/26/2016 Unknown Influenza due to woody ntified novel influenza A virus with other respiratory manifestations ICD-9: 488.02 ICD-10: J09.X2 Active 05/26/2017 Unknown Acute upper respirat ory infection, unspecified ICD-9: 465.9 ICD-10: J06.9 Active 03/03/2016 Unknown Cough ICD-9: 786.2 ICD-10: R05 Active 02/22/2017 Unknown Migraine without aur a, not intractable, without status migrainosus ICD-9: 346.10 ICD-10: G43.009 Active 02/09/2017 Unknown Pneumonia due to oth er specified bacteria ICD-9: 482.81 ICD-10: J15.8 Active 02/09/2017 Unknown Ingrowing nail ICD-9: 703.0 ICD-10: L60.0 Active 10/20/2016 Unknown 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 ICD-10: L60.3 Active 10/20/2016 Unknown Tinea unguium ICD-9: 110.1 ICD-10: B35.1 Active 10/20/2016 Unknown Acute frontal sinusi tis, unspecified ICD-9: 461.1 ICD-10: J01.10 Active 05/17/2016 Unknown Acute maxillary sinu sitis, unspecified ICD-9: 461.0 ICD-10: J01.00 Active 05/17/2016 Unknown Migraine, unspecifie d, not intractable, without status migrainosus ICD-9: 346.90 ICD-10: G43.909 Active 11/06/2015 Unknown Myalgia ICD-9: 729.1 Active 07/12/2014 Unknow n Conjunctivitis ICD-9: 372.30 Active 07/11/2014 Unknown COUGH ICD-9: 786.2 Active 06/22/2014 Unknow n FEBRILE ILLNESS ICD-9: 780.60 Active 06/22/2014 Unknown Mastitis ICD-9: 611.0 Active 10/04/2013 Unknow n PAIN, LOWER BACK ICD-9: 724.2 Active 10/04/2013 Unknown ALLERGIC RHINITIS ICD-9: 477.9 Active 09/05/2013 Unknown SINUSITIS, ACUTE ICD-9: 461.9 Active 09/05/2013 Unknown NAUSEA WITH VOMITING ICD-9: 787.01 Active 11/04/2009 Unknown Problems Condition Codes Effectiv e Dates Condition Status FLU VACCINE ICD-9: V04.81 ICD-10: Z23 02/26/2016 Active Influenza due to woody ntified novel influenza A virus with other respiratory manifestations ICD-9: 488.02 ICD-10: J09.X2 05/26/2017 Active Acute upper respirat ory infection, unspecified ICD-9: 465.9 ICD-10: J06.9 03/03/2016 Active Cough ICD-9: 786.2 ICD-10: R05 02/22/2017 Active Migraine without aur a, not intractable, without status migrainosus ICD-9: 346.10 ICD-10: G43.009 02/09/2017 Active Pneumonia due to oth er specified bacteria ICD-9: 482.81 ICD-10: J15.8 02/09/2017 Active Ingrowing nail ICD-9: 703.0 ICD-10: L60.0 10/20/2016 Active 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 ICD-10: L60.3 10/20/2016 Active Tinea unguium ICD-9: 110.1 ICD-10: B35.1 10/20/2016 Active Acute frontal sinusi tis, unspecified ICD-9: 461.1 ICD-10: J01.10 05/17/2016 Active Acute maxillary sinu sitis, unspecified ICD-9: 461.0 ICD-10: J01.00 05/17/2016 Active Migraine, unspecifie d, not intractable, without status migrainosus ICD-9: 346.90 ICD-10: G43.909 11/06/2015 Active Myalgia ICD-9: 729.1 07/12/2014 Active Conjunctivitis ICD-9: 372.30 07/11/2014 Active COUGH ICD-9: 786.2 06/22/2014 Active FEBRILE ILLNESS ICD-9: 780.60 06/22/2014 Active Mastitis ICD-9: 611.0 10/04/2013 Active PAIN, LOWER BACK ICD-9: 724.2 10/04/2013 Active ALLERGIC RHINITIS ICD-9: 477.9 09/05/2013 Active SINUSITIS, ACUTE ICD-9: 461.9 09/05/2013 Active NAUSEA WITH VOMITING ICD-9: 787.01 11/04/2009 Active Medications Medication Codes Instruc tions Start Date Stop Date Sta tus Fill Instructions Augmentin 875 mg-125 mg tablet RxNorm: 386366 1 Tablet(s) PO BID 03/01/2017 03/10/2017 Inactive Augmentin 875 mg-125 mg tablet RxNorm: 844639 1 Tablet(s) PO BID 03/01/2017 02/28/2017 Inactive ProAir HFA 90 mcg/ac tuation aerosol inhaler RxNorm: 246695 2 Puff(s) INH Q4H as needed 02/22/2017 No Stop Date Active prednisone 20 mg tablet RxNorm: 315651 2 Tablet(s) PO QD 02/22/2017 02/26/2017 Inactive Tessalon Perles 100 mg capsule RxNorm: 717340 1 Capsule(s) PO TID a s needed 02/09/2017 No Stop Date Active Fiorinal 50 mg-325 m g-40 mg capsule RxNorm: 698749 1 Capsule(s) PO Q8H 02/09/2017 No Stop Date Active clarithromycin 500 m g tablet RxNorm: 802431 1 Tablet(s) PO BID 02/09/2017 02/15/2017 Inactive Jublia 10 % topical solution with applicator RxNorm: 0372511 Application TOP QD 10/20/2016 11/05/2016 In active amoxicillin 500 mg t ablet RxNorm: 844370 1 Tablet(s) PO TID 06/29/2016 07/08/2016 Inactive Keflex 500 mg capsule RxNorm: 816742 1 Capsule(s) PO QID 05/18/2016 05/27/2016 Inactive azithromycin 250 mg tablet RxNorm: 357793 2 Tablet(s) PO on day one then 1 tab on days 2-5 03/04/2016 03/03/2016 Inactive tobramycin 0.3 % eye drops RxNorm: 690441 2 Drop(s) OPH QID to right eye 07/11/2014 07/17/2014 In active azithromycin 250 mg tablet RxNorm: 598399 2 Tablet(s) PO on day one then one tablet ondays 2 - 5 06/22/2014 07/10/2014 Inactive Rhinocort Aqua 32 mc g/actuation nasal spray RxNorm: 874027 2 [place] NASAL BID 06/22/2014 03/03/2016 In active Augmentin 875 mg-125 mg tablet RxNorm: 034718 1 Tablet(s) PO BID 11/14/2013 11/23/2013 Inactive naproxen 500 mg tablet RxNorm: 982297 1 Tablet(s) PO BID 10/06/2013 03/03/2016 Inactive Rhinocort Aqua 32 mc g/actuation nasal spray RxNorm: 035077 2 [place] NASAL BID 09/05/2013 10/03/2013 In active Zithromax 500 mg tablet RxNorm: 577930 1 Tablet(s) PO QD 09/05/2013 09/11/2013 Inactive Doxycycline 100 mg Tab RxNorm: 4634456 1 Tablet(s) PO BID 11/04/2009 11/13/2009 Inactive Levaquin 500 mg Tab RxNorm: 102004 1 Tablet(s) PO QD 11/04/2009 11/08/2009 Inactive vit #113-ir [id number] oral RxNorm: oral No Start Date Active Prometrium 100 mg Cap RxNorm: 551803 1 Capsule(s) PO QD No Start Date 10/03/2013 Inactive naproxen 500 mg tablet RxNorm: 142176 1 Tablet(s) PO BID No Start Date 10/05/2013 Inactive Penlac 8 % topical s olution RxNorm: 911006 1 Application TOP QD Apply daily for 7 days then remove with alcohol after 1 week for up to 48weeks treatment No Start Date 02/08/2017 Inactive Phentermine 37.5 mg Cap RxNorm: 654007 1 Capsule(s) PO QD No Start Date 09/04/2013 Inactive Fortamet 1,000 mg 24 hr Tab Ctrl Rel RxNorm: 918740 1 Tablet(s) PO QD No Start Date 09/04/2013 Inactive Phenergan 25 mg Tab RxNorm: 443462 1 Tablet(s) PO Q6-8H medication may caus e drowsiness. Do not operate heavy equipment. No Start Date 10/03/2013 Inactive Nature-Throid 130 mg tablet RxNorm: 422252 1 Tablet(s) PO QD No Start Date 02/08/2017 Inactive tramadol 50 mg tablet RxNorm: 850446 1 Tablet(s) PO Q6H No Start Date 03/03/2016 Inactive Medication Administered No Medication Administered data Immunizations Vaccine Codes Date Status Influenza CVX: 141 04/05 completed Influenza CVX: 141 02/26 completed Assessments Condition Codes Effectiv e Dates FLU VACCINE ICD-10: Z23 ICD-9: V04.81 04/05/2018 Influenza due to identified novel influe nza A virus with other respiratory manifestations ICD-10: J09.X2 ICD-9: 488.02 05/26/2017 Acute upper respiratory infection, unspecified ICD-10: J06.9 ICD-9: 465.9 02/23/2017 Cough ICD-10: R05 ICD-9: 786.2 02/22/2017 Migraine without aura, not intractable, without status migrainosus ICD-10: G43.009 ICD-9: 346.10 02/22/2017 Pneumonia due to other specified bacteria ICD-10: J15.8 ICD-9: 482.81 02/09/2017 Nail dystrophy ICD-10: L60.3 ICD-9: 703.8 10/20/2016 Tinea unguium ICD-10: B35.1 ICD-9: 110.1 10/20/2016 Ingrowing nail ICD-10: L60.0 ICD-9: 703.0 10/20/2016 Acute frontal sinusitis, unspecified ICD-10: J01.10 ICD-9: 461.1 06/29/2016 Acute maxillary sinusitis, unspecified ICD-10: J01.00 ICD-9: 461.0 05/18/2016 Migraine, unspecified, not intractable, without status migrainosus ICD-10: G43.909 ICD-9: 346.90 11/07/2015 Myalgia ICD-9: 729.1 09/2014 Conjunctivitis ICD-9: 372.30 07/11/2014 COUGH ICD-9: 786.2 06/22 SINUSITIS, ACUTE ICD-9: 461.9 06/22/2014 FEBRILE ILLNESS ICD-9: 780.60 06/22/2014 PAIN, LOWER BACK ICD-9: 724.2 10/04/2013 Mastitis ICD-9: 611.0 ALLERGIC RHINITIS ICD-9: 477.9 09/05/2013 NAUSEA WITH VOMITING ICD-9: 787.01 11/04/2009 Reason For Visit Reason For Visit Effective Dates Notes injection(s) 04/05/2018 requesting flu vaccine cough 05/26/2017 follow up 02/23/2017 Spu ju Culture cough 02/22/2017 headache 02/09/2017 Sandee ent requesting Toradol injection fungus - toenail 10/20/2016 To left great toe, toenail discoloration and tenderness. This has been ongoing for last four months postnasal drip 06/29/2016 sinus pain 05/18/2016 cough 03/04/2016 injection(s) 02/27/2016 Flu shot injection(s) 11/07/2015 Toradol 60mg injection(s) 08/15/2015 Toradol and Phenergan eye erythema 07/11/2014 myalgias 06/22/2014 sinusitis 11/14/2013 follow up 10/04/2013 [facility] Fwup cough 09/05/2013 Patient 39 weeks gestation pleurisy 11/04/2009 Results No Results data Review of Systems System Result Effective Dates Constitutional chills Constitutional fatigue 0 05/26/2017 Constitutional No fever 05/26/2017 Respiratory No cough Respiratory chest tightness 05/26/2017 Ears/Nose/Throat/Neck sore throat 05/26/2017 Ears/Nose/Throat/Neck No otalgia 05/26/2017 Gastrointestinal gas and bloating 05/26/2017 Genitourinary/Nephrology No anuria/oliguri a 05/26/2017 Genitourinary/Nephrology No dysuria 05/26/2017 Neurologic headache 05/10 Musculoskeletal myalgias 05/26/2017 Musculoskeletal No low back pain 05/26/2017 Constitutional chills Constitutional fever Constitutional fatigue 1 Musculoskeletal myalgias 02/22/2017 Gastrointestinal No abdominal pain 02/22/2017 Gastrointestinal No diarrhea 02/22/2017 Gastrointestinal constipation 02/22/2017 Gastrointestinal nausea 02/22/2017 Gastrointestinal No vomiting 02/22/2017 Respiratory cough 2016 Respiratory dyspnea on exertion 02/22/2017 Respiratory No wheezing 02/22/2017 Dermatologic No rash Neurologic headache 02/07 Constitutional fatigue 1 Constitutional malaise 1 Constitutional No fever 02/09/2017 Respiratory chest tightness 02/09/2017 Respiratory No asthma Respiratory No dyspnea on exertion 02/09/2017 Respiratory pleuritic pain 02/09/2017 Respiratory No wheezing 02/09/2017 Gastrointestinal No abdominal pain 02/09/2017 Musculoskeletal muscle weakness 02/09/2017 Musculoskeletal myalgias 02/09/2017 Gastrointestinal No nausea 02/09/2017 Gastrointestinal No vomiting 02/09/2017 Neurologic headache 07/2016 Neurologic No alteration of consciousness 02/09/2017 Ears/Nose/Throat/Neck nasal discharge 02/09/2017 Ears/Nose/Throat/Neck No otalgia 02/09/2017 Respiratory cough 2016 Dermatologic onychodystrophy 10/20/2016 Dermatologic No paronychia 10/20/2016 Constitutional No night sweats 06/29/2016 Constitutional No chills 06/29/2016 Constitutional fatigue 0 06/29/2016 Constitutional No fever 06/29/2016 Eyes No eye discharge Eyes No eye pain 017 Eyes No vision change Ears/Nose/Throat/Neck No dizziness 06/29/2016 Ears/Nose/Throat/Neck eustachian tub e dysfunction 06/29/2016 Ears/Nose/Throat/Neck headache 06/29/2016 Ears/Nose/Throat/Neck nasal discharge 06/29/2016 Ears/Nose/Throat/Neck postnasal drip 06/29/2016 Ears/Nose/Throat/Neck sinus congestion 06/29/2016 Ears/Nose/Throat/Neck sore throat 06/29/2016 Cardiovascular No chest pain/pressure 06/29/2016 Cardiovascular No dyspnea 06/29/2016 Cardiovascular No orthopnea 06/29/2016 Cardiovascular No palpitations 06/29/2016 Cardiovascular No syncope 06/29/2016 Respiratory No chest tightness 06/29/2016 Respiratory cough 2016 Respiratory No dyspnea 0 06/29/2016 Respiratory No wheezing 06/29/2016 Gastrointestinal No diarrhea 06/29/2016 Gastrointestinal No nausea 06/29/2016 Gastrointestinal No vomiting 06/29/2016 Hematologic/Lymphatic No lymph node enlargement/mass 06/29/2016 Ears/Nose/Throat/Neck facial pain 06/29/2016 Ears/Nose/Throat/Neck otalgia 06/29/2016 Ears/Nose/Throat/Neck No otorrhea 06/29/2016 Respiratory chest congestion 06/29/2016 Dermatologic No rash Dermatologic No scar Constitutional No night sweats 05/18/2016 Constitutional No chills 05/18/2016 Constitutional fatigue 0 05/18/2016 Constitutional No fever 05/18/2016 Eyes No eye discharge Eyes No eye pain 017 Eyes No vision change Ears/Nose/Throat/Neck dizziness 05/18/2016 Ears/Nose/Throat/Neck eustachian tub e dysfunction 05/18/2016 Ears/Nose/Throat/Neck headache 05/18/2016 Ears/Nose/Throat/Neck nasal discharge 05/18/2016 Ears/Nose/Throat/Neck postnasal drip 05/18/2016 Ears/Nose/Throat/Neck sinus congestion 05/18/2016 Ears/Nose/Throat/Neck No sore throat 05/18/2016 Cardiovascular No chest pain/pressure 05/18/2016 Cardiovascular No dyspnea 05/18/2016 Cardiovascular No orthopnea 05/18/2016 Cardiovascular No palpitations 05/18/2016 Cardiovascular No syncope 05/18/2016 Respiratory No chest tightness 05/18/2016 Respiratory cough 2016 Respiratory No dyspnea 0 05/18/2016 Respiratory No wheezing 05/18/2016 Gastrointestinal No diarrhea 05/18/2016 Gastrointestinal No nausea 05/18/2016 Gastrointestinal No vomiting 05/18/2016 Hematologic/Lymphatic No lymph node enlargement/mass 05/18/2016 Ears/Nose/Throat/Neck facial pain 05/18/2016 Ears/Nose/Throat/Neck sinusitis 05/18/2016 Respiratory No chest congestion 05/18/2016 Dermatologic No rash 01/2017 Dermatologic No scar 01/2017 Constitutional No night sweats 03/04/2016 Constitutional No chills 03/04/2016 Constitutional fatigue 1 Constitutional No fever 03/04/2016 Eyes No eye discharge Eyes No eye pain 016 Eyes No vision change Ears/Nose/Throat/Neck dizziness 03/04/2016 Ears/Nose/Throat/Neck No eustachian tube dysfunction 03/04/2016 Ears/Nose/Throat/Neck headache 03/04/2016 Ears/Nose/Throat/Neck nasal discharge 03/04/2016 Ears/Nose/Throat/Neck postnasal drip 03/04/2016 Ears/Nose/Throat/Neck sinus congestion 03/04/2016 Ears/Nose/Throat/Neck sore throat 03/04/2016 Cardiovascular No chest pain/pressure 03/04/2016 Cardiovascular No dyspnea 03/04/2016 Cardiovascular No orthopnea 03/04/2016 Cardiovascular No palpitations 03/04/2016 Cardiovascular No syncope 03/04/2016 Respiratory No chest tightness 03/04/2016 Respiratory cough 2015 Respiratory No dyspnea 1 Respiratory No wheezing 03/04/2016 Gastrointestinal No diarrhea 03/04/2016 Gastrointestinal No nausea 03/04/2016 Gastrointestinal vomiting 03/04/2016 Hematologic/Lymphatic No lymph node enlargement/mass 03/04/2016 Ears/Nose/Throat/Neck facial pain 03/04/2016 Ears/Nose/Throat/Neck No otalgia 03/04/2016 Ears/Nose/Throat/Neck No otorrhea 03/04/2016 Respiratory chest congestion 03/04/2016 Dermatologic No rash Dermatologic No scar Eyes eye discharge 07/11 Eyes eyelid erythema 08/2014 Constitutional chills Constitutional No fever 06/22/2014 Ears/Nose/Throat/Neck nasal discharge 06/22/2014 Respiratory cough 2014 Ears/Nose/Throat/Neck headache 06/22/2014 Ears/Nose/Throat/Neck sinusitis 06/22/2014 Ears/Nose/Throat/Neck sinus congestion 06/22/2014 Respiratory cough 2013 Ears/Nose/Throat/Neck sinus congestion 11/14/2013 Constitutional No fever 11/14/2013 Musculoskeletal No muscle weakness 10/04/2013 Musculoskeletal No myalgias 10/04/2013 Musculoskeletal No stiffness 10/04/2013 Musculoskeletal No swelling 10/04/2013 Genitourinary/Nephrology breast complaint 10/04/2013 Musculoskeletal back pain 10/04/2013 Respiratory cough 2013 Ears/Nose/Throat/Neck sinus congestion 09/05/2013 Ears/Nose/Throat/Neck sinusitis 09/05/2013 Constitutional No night sweats 09/05/2013 Constitutional No fatigue 09/05/2013 Constitutional No fever 09/05/2013 Constitutional No insomnia 09/05/2013 Constitutional No weight loss 09/05/2013 Constitutional No fever 11/04/2009 Constitutional recent illness 11/04/2009 Respiratory cough 2009 Respiratory nocturnal cough 11/04/2009 Respiratory No asthma Respiratory No broncholiths 11/04/2009 Gastrointestinal vomiting 11/04/2009 Dermatologic No rash Dermatologic No sores Cardiovascular No arrhythmia 11/04/2009 Cardiovascular No chest pain/pressure 11/04/2009 Cardiovascular No cardiac murmur 11/04/2009 Cardiovascular No syncope 11/04/2009 Ears/Nose/Throat/Neck No otitis media 11/04/2009 Ears/Nose/Throat/Neck otalgia 11/04/2009 Ears/Nose/Throat/Neck sore throat 11/04/2009 Ears/Nose/Throat/Neck No tonsillitis 11/04/2009 Physical Exam Exam Name System Name It em Name Status Result Effective Dates Notes Full Exam - General Constitutional general appearance Overall: well nourished 05/26/2017 None Full Exam - General Constitutional general appearance Overall: in no acute distress 05/26/2017 None Full Exam - General Respiratory percussion Overall: benign percussion 05/26/2017 None Full Exam - General Respiratory respiratory effort/rhythm Overall: no retractions 05/26/2017 None Full Exam - General Respiratory respiratory effort/rhythm Overall: normal rate 05/26/2017 None Full Exam - General Respiratory auscultation Overall: breath sounds clear bilater ally 05/26/2017 None Full Exam - General Cardiovascular auscultation of heart Overall: regular rate 05/26/2017 None Full Exam - General Cardiovascular auscultation of heart Overall: no murmurs 05/26/2017 None Full Exam - General Neurologic mental status Overall: alert 8 None Full Exam - General Neurologic mental status Overall: oriented 05/26/2017 None Full Exam - General Constitutional general appearance Overall: well nourished 02/22/2017 None Full Exam - General Respiratory respiratory effort/rhythm Rate: a normal exam 02/22/2017 None Full Exam - General Respiratory respiratory effort/rhythm Overall: no retractions 02/22/2017 None Full Exam - General Cardiovascular auscultation of heart Overall: regular rate 02/22/2017 None Full Exam - General Cardiovascular auscultation of heart Overall: no murmurs 02/22/2017 None Full Exam - General Respiratory auscultation Diffuse: diminished 02/22/2017 throughout. breathing treatment was give n to patient. once completed, lung choi were more audible and crackles auscultated in left lower lobe. Full Exam - General Neurologic motor Overall: normal bulk, tone 02/22/2017 None Full Exam - General Constitutional general appearance Overall: well nourished 02/09/2017 None Full Exam - General Constitutional general appearance Overall: in no acute distress 02/09/2017 None Full Exam - General Ears/Nose/Throat otoscopic exam Left tympanic membrane: a normal exam 02/09/2017 None Full Exam - General Ears/Nose/Throat otoscopic exam Right tympanic membrane: a normal exam 02/09/2017 None Full Exam - General Ears/Nose/Throat oral cavity/pharynx/larynx Overall: oral mucosa clear 02/09/2017 None Full Exam - General Respiratory auscultation Diffuse: diminished 02/09/2017 None Full Exam - General Respiratory auscultation Left lower lung field: crackles 02/09/2017 None Full Exam - General Respiratory respiratory effort/rhythm Overall: normal rate 02/09/2017 None Full Exam - General Respiratory respiratory effort/rhythm Rate: a normal exam 02/09/2017 None Full Exam - General Cardiovascular auscultation of heart Overall: regular rate 02/09/2017 None Full Exam - General Cardiovascular auscultation of heart Overall: no murmurs 02/09/2017 None Full Exam - General Lymphatic neck nodes Overall: anterior cervical chain amol ign 02/09/2017 None Full Exam - General Lymphatic neck nodes Overall: posterior cervical chain be nign 02/09/2017 None Full Exam - General Neurologic mental status Overall: alert 7 None Full Exam - General Neurologic mental status Overall: oriented 02/09/2017 None Full Exam - General Neurologic gait Overall: no ataxia, no unsteadiness 02/09/2017 None Full Exam - General Neurologic motor Overall: normal bulk, tone 02/09/2017 None Full Exam - General Psychiatric mood and affect Overall: normal mood and affect 02/09/2017 None Full Exam - General Constitutional general appearance Overall: well nourished 10/20/2016 None Full Exam - General Constitutional general appearance Overall: well developed 10/20/2016 None Full Exam - General Constitutional general appearance Overall: in no acute distress 10/20/2016 None Full Exam - General Neurologic mental status Overall: alert 7 None Full Exam - General Neurologic mental status Overall: oriented 10/20/2016 None Full Exam - General Psychiatric mood and affect Overall: normal mood and affect 10/20/2016 None Full Exam - General Musculoskeletal digits and nails Nails: discoloration 10/20/2016 left great toenail latera lly with ingrowing toenail and some surrounding tenderness to the nailbed but no evidence of infection Full Exam - General Constitutional general appearance Overall: well nourished 06/29/2016 None Full Exam - General Constitutional general appearance Overall: well developed 06/29/2016 None Full Exam - General Constitutional general appearance Overall: in no acute distress 06/29/2016 None Full Exam - General Constitutional general appearance Nourishment: well nourished 06/29/2016 None Full Exam - General Constitutional general appearance Evidence of Distress: in no acute distress 06/29/2016 None Full Exam - General Eyes conjunctiva/eyelids Overall: conjunctiva clear 06/29/2016 None Full Exam - General Eyes conjunctiva/eyelids Overall: cornea clear 06/29/2016 None Full Exam - General Eyes conjunctiva/eyelids Overall: eyelids normal 06/29/2016 None Full Exam - General Eyes pupils and irises Overall: pupils equal, round, reacti ve to light and accomodation 06/29/2016 None Full Exam - General Ears/Nose/Throat external ear Overall: normal appearance 06/29/2016 None Full Exam - General Ears/Nose/Throat external nose Overall: benign appearance 06/29/2016 None Full Exam - General Ears/Nose/Throat otoscopic exam Overall: external auditory canals clear 06/29/2016 None Full Exam - General Ears/Nose/Throat otoscopic exam Left tympanic membrane: air- fluid level 06/29/2016 None Full Exam - General Ears/Nose/Throat otoscopic exam Right tympanic membrane: air- fluid level 06/29/2016 None Full Exam - General Ears/Nose/Throat internal nose Left nasal cavity: mucosal edema 06/29/2016 None Full Exam - General Ears/Nose/Throat internal nose Right nasal cavity: mucosal edema 06/29/2016 None Full Exam - General Ears/Nose/Throat lips/teeth/gingiva Overall: benign lips 06/29/2016 None Full Exam - General Ears/Nose/Throat lips/teeth/gingiva Overall: normal dentition 06/29/2016 None Full Exam - General Ears/Nose/Throat oral cavity/pharynx/larynx Oropharynx: a normal exam 06/29/2016 None Full Exam - General Respiratory auscultation Overall: breath sounds clear bilater ally 06/29/2016 None Full Exam - General Cardiovascular auscultation of heart Overall: regular rate 06/29/2016 None Full Exam - General Cardiovascular auscultation of heart Overall: normal heart sounds 06/29/2016 None Full Exam - General Cardiovascular auscultation of heart Overall: no murmurs 06/29/2016 None Full Exam - General Lymphatic neck nodes Overall: anterior cervical chain amol ign 06/29/2016 None Full Exam - General Lymphatic neck nodes Overall: posterior cervical chain be nign 06/29/2016 None Full Exam - General Integument inspection of skin Overall: no rash, lesions 06/29/2016 None Full Exam - General Psychiatric mood and affect Overall: normal mood and affect 06/29/2016 None Full Exam - General Ears/Nose/Throat otoscopic exam Otorrhea: absent 06/29/2016 None Full Exam - General Ears/Nose/Throat otoscopic exam Perforation: absent 06/29/2016 None Full Exam - General Ears/Nose/Throat internal nose Sinus tenderness: left frontal 06/29/2016 None Full Exam - General Ears/Nose/Throat internal nose Sinus tenderness: right frontal 06/29/2016 None Full Exam - General Ears/Nose/Throat oral cavity/pharynx/larynx Overall: oral mucosa clear 06/29/2016 None Full Exam - General Constitutional general appearance Overall: well nourished 05/18/2016 None Full Exam - General Constitutional general appearance Overall: well developed 05/18/2016 None Full Exam - General Constitutional general appearance Overall: in no acute distress 05/18/2016 None Full Exam - General Constitutional general appearance Nourishment: well nourished 05/18/2016 None Full Exam - General Constitutional general appearance Evidence of Distress: in no acute distress 05/18/2016 None Full Exam - General Eyes conjunctiva/eyelids Overall: conjunctiva clear 05/18/2016 None Full Exam - General Eyes conjunctiva/eyelids Overall: cornea clear 05/18/2016 None Full Exam - General Eyes conjunctiva/eyelids Overall: eyelids normal 05/18/2016 None Full Exam - General Eyes pupils and irises Overall: pupils equal, round, reacti ve to light and accomodation 05/18/2016 None Full Exam - General Ears/Nose/Throat external ear Overall: normal appearance 05/18/2016 None Full Exam - General Ears/Nose/Throat external nose Overall: benign appearance 05/18/2016 None Full Exam - General Ears/Nose/Throat otoscopic exam Overall: external auditory canals clear 05/18/2016 None Full Exam - General Ears/Nose/Throat otoscopic exam Left tympanic membrane: air- fluid level 05/18/2016 None Full Exam - General Ears/Nose/Throat otoscopic exam Right tympanic membrane: air- fluid level 05/18/2016 None Full Exam - General Ears/Nose/Throat internal nose Left nasal cavity: mucosal edema 05/18/2016 None Full Exam - General Ears/Nose/Throat internal nose Right nasal cavity: mucosal edema 05/18/2016 None Full Exam - General Ears/Nose/Throat lips/teeth/gingiva Overall: benign lips 05/18/2016 None Full Exam - General Ears/Nose/Throat lips/teeth/gingiva Overall: normal dentition 05/18/2016 None Full Exam - General Ears/Nose/Throat oral cavity/pharynx/larynx Oropharynx: a normal exam 05/18/2016 None Full Exam - General Respiratory auscultation Overall: breath sounds clear bilater ally 05/18/2016 None Full Exam - General Cardiovascular auscultation of heart Overall: regular rate 05/18/2016 None Full Exam - General Cardiovascular auscultation of heart Overall: normal heart sounds 05/18/2016 None Full Exam - General Cardiovascular auscultation of heart Overall: no murmurs 05/18/2016 None Full Exam - General Lymphatic neck nodes Overall: anterior cervical chain amol ign 05/18/2016 None Full Exam - General Lymphatic neck nodes Overall: posterior cervical chain be nign 05/18/2016 None Full Exam - General Integument inspection of skin Overall: no rash, lesions 05/18/2016 None Full Exam - General Psychiatric mood and affect Overall: normal mood and affect 05/18/2016 None Full Exam - General Ears/Nose/Throat internal nose Sinus tenderness: left frontal 05/18/2016 None Full Exam - General Ears/Nose/Throat internal nose Sinus tenderness: right frontal 05/18/2016 None Full Exam - General Ears/Nose/Throat internal nose Sinus tenderness: left maxillary 05/18/2016 None Full Exam - General Ears/Nose/Throat internal nose Sinus tenderness: right maxillary 05/18/2016 None Full Exam - General Constitutional general appearance Overall: well nourished 03/04/2016 None Full Exam - General Constitutional general appearance Overall: well developed 03/04/2016 None Full Exam - General Constitutional general appearance Overall: in no acute distress 03/04/2016 None Full Exam - General Constitutional general appearance Nourishment: well nourished 03/04/2016 None Full Exam - General Constitutional general appearance Evidence of Distress: in no acute distress 03/04/2016 None Full Exam - General Eyes conjunctiva/eyelids Overall: conjunctiva clear 03/04/2016 None Full Exam - General Eyes conjunctiva/eyelids Overall: cornea clear 03/04/2016 None Full Exam - General Eyes conjunctiva/eyelids Overall: eyelids normal 03/04/2016 None Full Exam - General Eyes pupils and irises Overall: pupils equal, round, reacti ve to light and accomodation 03/04/2016 None Full Exam - General Ears/Nose/Throat external ear Overall: normal appearance 03/04/2016 None Full Exam - General Ears/Nose/Throat external nose Overall: benign appearance 03/04/2016 None Full Exam - General Ears/Nose/Throat otoscopic exam Overall: external auditory canals clear 03/04/2016 None Full Exam - General Ears/Nose/Throat otoscopic exam Left tympanic membrane: air- fluid level 03/04/2016 None Full Exam - General Ears/Nose/Throat otoscopic exam Right tympanic membrane: air- fluid level 03/04/2016 None Full Exam - General Ears/Nose/Throat internal nose Left nasal cavity: mucosal edema 03/04/2016 None Full Exam - General Ears/Nose/Throat internal nose Right nasal cavity: mucosal edema 03/04/2016 None Full Exam - General Ears/Nose/Throat lips/teeth/gingiva Overall: benign lips 03/04/2016 None Full Exam - General Ears/Nose/Throat lips/teeth/gingiva Overall: normal dentition 03/04/2016 None Full Exam - General Ears/Nose/Throat oral cavity/pharynx/larynx Oropharynx: a normal exam 03/04/2016 None Full Exam - General Respiratory auscultation Overall: breath sounds clear bilater ally 03/04/2016 None Full Exam - General Cardiovascular auscultation of heart Overall: regular rate 03/04/2016 None Full Exam - General Cardiovascular auscultation of heart Overall: normal heart sounds 03/04/2016 None Full Exam - General Cardiovascular auscultation of heart Overall: no murmurs 03/04/2016 None Full Exam - General Lymphatic neck nodes Overall: anterior cervical chain amol ign 03/04/2016 None Full Exam - General Lymphatic neck nodes Overall: posterior cervical chain be nign 03/04/2016 None Full Exam - General Integument inspection of skin Overall: no rash, lesions 03/04/2016 None Full Exam - General Psychiatric mood and affect Overall: normal mood and affect 03/04/2016 None Full Exam - General Ears/Nose/Throat otoscopic exam Otorrhea: absent 03/04/2016 None Full Exam - General Ears/Nose/Throat otoscopic exam Perforation: absent 03/04/2016 None Full Exam - General Ears/Nose/Throat internal nose Sinus tenderness: left maxillary 03/04/2016 None Full Exam - General Ears/Nose/Throat internal nose Sinus tenderness: right maxillary 03/04/2016 None Full Exam - General Eyes conjunctiva/eyelids Right conjunctiva: discharge 07/11/2014 None Full Exam - General Eyes conjunctiva/eyelids Right conjunctiva: erythema 07/11/2014 None Full Exam - General Eyes conjunctiva/eyelids Left conjunctiva: clear 07/11/2014 None Full Exam - General Ears/Nose/Throat oral cavity/pharynx/larynx Oropharynx: a normal exam 07/11/2014 None Full Exam - General Ears/Nose/Throat oral cavity/pharynx/larynx Overall: oral mucosa clear 07/11/2014 None Full Exam - General Respiratory auscultation Overall: breath sounds clear bilater ally 07/11/2014 None Full Exam - General Cardiovascular auscultation of heart Overall: regular rate 07/11/2014 None Full Exam - General Cardiovascular auscultation of heart Overall: normal heart sounds 07/11/2014 None Full Exam - General Cardiovascular auscultation of heart Overall: no murmurs 07/11/2014 None Full Exam - General Eyes pupils and irises Overall: pupils equal, round, reacti ve to light and accomodation 07/11/2014 None Full Exam - General Constitutional general appearance Overall: well nourished 07/11/2014 None Full Exam - General Constitutional general appearance Overall: well developed 07/11/2014 None Full Exam - General Constitutional general appearance Overall: in no acute distress 07/11/2014 None Full Exam - General Psychiatric mood and affect Overall: normal mood and affect 07/11/2014 None Full Exam - General Ears/Nose/Throat otoscopic exam Right tympanic membrane: air- fluid level 06/22/2014 None Full Exam - General Ears/Nose/Throat otoscopic exam Left tympanic membrane: air- fluid level 06/22/2014 None Full Exam - General Ears/Nose/Throat oral cavity/pharynx/larynx Oropharynx: postnasal drainage 06/22/2014 None Full Exam - General Ears/Nose/Throat oral cavity/pharynx/larynx Oropharynx: erythema 06/22/2014 None Full Exam - General Respiratory auscultation Right lower lung field: diminished 06/22/2014 None Full Exam - General Respiratory auscultation Left lower lung field: diminished 06/22/2014 None Full Exam - General Respiratory auscultation Left upper lung field: a normal exam 06/22/2014 None Full Exam - General Respiratory auscultation Right upper lung field: a normal exa m 06/22/2014 None Full Exam - General Cardiovascular auscultation of heart Overall: regular rate 06/22/2014 None Full Exam - General Cardiovascular auscultation of heart Overall: normal heart sounds 06/22/2014 None Full Exam - General Cardiovascular auscultation of heart Overall: no murmurs 06/22/2014 None Full Exam - General Psychiatric mood and affect Overall: normal mood and affect 06/22/2014 None Full Exam - General Ears/Nose/Throat otoscopic exam Left tympanic membrane: effusion 11/14/2013 None Full Exam - General Ears/Nose/Throat otoscopic exam Right tympanic membrane: abnormal light reflex 11/14/2013 None Full Exam - General Ears/Nose/Throat otoscopic exam Right tympanic membrane: retracted 11/14/2013 None Full Exam - General Constitutional general appearance Overall: well nourished 11/14/2013 None Full Exam - General Constitutional general appearance Overall: in no acute distress 11/14/2013 None Full Exam - General Constitutional general appearance Overall: well developed 11/14/2013 None Full Exam - General Ears/Nose/Throat internal nose Turbinates: erythema 11/14/2013 None Full Exam - General Ears/Nose/Throat oral cavity/pharynx/larynx Overall: oropharyngeal mucosa clear 11/14/2013 None Full Exam - General Ears/Nose/Throat oral cavity/pharynx/larynx Overall: oral mucosa clear 11/14/2013 None Full Exam - General Psychiatric orientation/consciousness Overall: oriented to person, place and time 11/14/2013 None Full Exam - General Respiratory auscultation Overall: breath sounds clear bilater ally 11/14/2013 None Full Exam - General Cardiovascular auscultation of heart Overall: normal heart sounds 11/14/2013 None Full Exam - General Cardiovascular auscultation of heart Overall: no murmurs 11/14/2013 None Full Exam - General Cardiovascular auscultation of heart Overall: regular rate 11/14/2013 None Full Exam - General Ears/Nose/Throat internal nose Sinus tenderness: left maxillary 11/14/2013 None Full Exam - General Ears/Nose/Throat internal nose Sinus tenderness: right maxillary 11/14/2013 None Full Exam - General Constitutional general appearance Overall: well nourished 10/04/2013 None Full Exam - General Constitutional general appearance Overall: well developed 10/04/2013 None Full Exam - General Constitutional general appearance Overall: in no acute distress 10/04/2013 None Full Exam - General Neurologic mental status Overall: alert 4 None Full Exam - General Neurologic mental status Overall: oriented 10/04/2013 None Full Exam - General Psychiatric mood and affect Overall: normal mood and affect 10/04/2013 None Full Exam - General Integument inspection of skin Location: chest 10/04/2013 left breast redness improving 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 Full Exam - General Constitutional general appearance Overall: well nourished 09/05/2013 None Full Exam - General Constitutional general appearance Overall: well developed 09/05/2013 None Full Exam - General Constitutional general appearance Overall: in no acute distress 09/05/2013 None Full Exam - General Neurologic mental status Overall: alert 4 None Full Exam - General Neurologic mental status Overall: oriented 09/05/2013 None Full Exam - General Psychiatric mood and affect Overall: normal mood and affect 09/05/2013 None Full Exam - General Respiratory auscultation Overall: breath sounds clear bilater ally 09/05/2013 None Full Exam - General Cardiovascular auscultation of heart Overall: regular rate 09/05/2013 None Full Exam - General Cardiovascular auscultation of heart Overall: normal heart sounds 09/05/2013 None Full Exam - General Cardiovascular auscultation of heart S3 (ventricular gallop): present 09/05/2013 None Full Exam - General Ears/Nose/Throat otoscopic exam Overall: external auditory canals clear 09/05/2013 None Full Exam - General Ears/Nose/Throat otoscopic exam Overall: tympanic membranes clear 09/05/2013 None Full Exam - General Ears/Nose/Throat internal nose Turbinates: hypertrophy 09/05/2013 None Full Exam - General Ears/Nose/Throat internal nose Drainage: clear 09/05/2013 [id number] Full Exam - General Ears/Nose/Throat otoscopic exam Overall: tympanic membranes clear 11/04/2009 None Full Exam - General Ears/Nose/Throat otoscopic exam Overall: external auditory canals clear 11/04/2009 None Full Exam - General Ears/Nose/Throat external ear Overall: normal appearance 11/04/2009 None Full Exam - General Ears/Nose/Throat lips/teeth/gingiva Overall: benign lips 11/04/2009 None Full Exam - General Ears/Nose/Throat lips/teeth/gingiva Overall: normal dentition 11/04/2009 None Full Exam - General Ears/Nose/Throat lips/teeth/gingiva Overall: benign gingiva 11/04/2009 None Full Exam - General Ears/Nose/Throat oral cavity/pharynx/larynx Overall: oral mucosa clear 11/04/2009 None Full Exam - General Constitutional general appearance Development: appears younger than stated age 0611/04/2009 None Full Exam - General Respiratory auscultation Overall: breath sounds clear bilater ally 11/04/2009 None Full Exam - General Respiratory respiratory effort/rhythm Overall: no retractions 11/04/2009 None Full Exam - General Respiratory respiratory effort/rhythm Overall: normal rate 11/04/2009 None Full Exam - General Cardiovascular auscultation of heart Overall: regular rate 11/04/2009 None Full Exam - General Cardiovascular auscultation of heart Overall: normal heart sounds 11/04/2009 None Full Exam - General Integument inspection of skin Overall: no rash, lesions 11/04/2009 None Full Exam - General Constitutional general appearance Overall: well nourished 11/04/2009 None Full Exam - General Constitutional general appearance Overall: well developed 11/04/2009 None Full Exam - General Constitutional general appearance Overall: in no acute distress 11/04/2009 None Full Exam - General Eyes pupils and irises Overall: pupils equal, round, reacti ve to light and accomodation 11/04/2009 None Full Exam - General Psychiatric orientation/consciousness Overall: oriented to person, place and time 11/04/2009 None Procedures Procedure Codes Date IIV4 VACCINE 3 YRS+ IM AND UP CPT-4: 81273 04/05/2018 IMMUNIZATION ADMIN CPT- 4: 50058 04/05/2018 INFLUENZA ASSAY W/OPTIC CPT-4: 04955 05/26/2017 RESPIRATORY CULTURE & STAIN CPT-4: 84343 02/23/2017 INFLUENZA ASSAY W/OPTIC CPT-4: 91463 02/22/2017 ALBUTEROL NON-COMP UNIT CPT-4: J7613 02/22/2017 AIRWAY INHALATION TR EATMENT CPT-4: 49897 02/22/2017 ROUTINE VENIPUNCTURE CPT-4: 52817 02/22/2017 COMPLETE CBC W/AUTO DIFF WBC CPT-4: 78600 02/22/2017 THER/PROPH/DIAG INJ SC/IM CPT-4: 64288 02/09/2017 KETOROLAC TROMETHAMI NE INJ CPT-4: J1885 02/09/2017 FLU VACCINE 3 YRS & > IM UP 64 CPT-4: 53103 02/27/2016 IMMUNIZATION ADMIN CPT- 4: 82506 02/27/2016 THER/PROPH/DIAG INJ SC/IM CPT-4: 08995 11/07/2015 KETOROLAC TROMETHAMI NE INJ CPT-4: J1885 11/07/2015 THER/PROPH/DIAG INJ SC/IM CPT-4: 75199 08/15/2015 KETOROLAC TROMETHAMI NE INJ CPT-4: J1885 08/15/2015 PROMETHAZINE HCL INJ ECTION CPT-4: J2550 08/15/2015 INFLUENZA ASSAY W/OPTIC CPT-4: 28667 07/12/2014 THER/PROPH/DIAG INJ SC/IM CPT-4: 89579 06/22/2014 METHYLPREDNISOLONE 4 0 MG INJ CPT-4: J1030 06/22/2014 TRIAMCINOLONE ACET I [place] NOS CPT-4: J3301 06/22/2014 INFLUENZA ASSAY W/OPTIC CPT-4: 12353 06/22/2014 URINE TEST CPT-4: 65991 11/04/2009 Vital Signs Date Vital 05/26/2017 Blood Pressure 1: 136/78 Code: 8480-6 BMI: 32.9 Code: 93052-3 Heart Rate 1: 82 bpm Height: 5'3" Respiratory Rate: 22 bpm SpO2: 98% Temperature: 35.8 (C ) / 96.4 (F) Weight: 186 lbs 02/22/2017 Blood Pressure 1: 124/76 Code: 8480-6 BMI: 33.7 Code: 03934-2 Heart Rate 1: 90 bpm Height: 5'3" Respiratory Rate: 22 bpm SpO2: 98% Temperature: 36.0 (C ) / 96.8 (F) Weight: 190 lbs 02/09/2017 Blood Pressure 1: 118/66 Code: 8480-6 BMI: 34.2 Code: 01372-9 Heart Rate 1: 84 bpm Height: 5'3" Respiratory Rate: 24 bpm SpO2: 98% Temperature: 35.9 (C ) / 96.6 (F) Weight: 193 lbs 10/20/2016 Blood Pressure 1: 124/70 Code: 8480-6 BMI: 32.8 Code: 23942-0 Heart Rate 1: 64 bpm Height: 5'3" Respiratory Rate: 20 bpm SpO2: 97% Temperature: 37.2 (C ) / 98.9 (F) Weight: 185 lbs 06/29/2016 Blood Pressure 1: 124/78 Code: 8480-6 Heart Rate 1: 86 bpm Respiratory Rate: 24 bpm SpO2: 98% Temperature: 36.6 (C ) / 97.8 (F) Weight: 203 lbs 05/18/2016 Blood Pressure 1: 102/48 Code: 8480-6 BMI: 34.5 Code: 82218-7 Heart Rate 1: 96 bpm Height: 5'3" Respiratory Rate: 24 bpm SpO2: 98% Temperature: 35.9 (C ) / 96.6 (F) Weight: 195 lbs 03/04/2016 Blood Pressure 1: 124/76 Code: 8480-6 Heart Rate 1: 84 bpm Respiratory Rate: 20 bpm SpO2: 98% Temperature: 36.2 (C ) / 97.1 (F) Weight: 132 lbs 07/12/2014 Dailey rature: 38.3 (C) / 101.0 (F) 07/11/2014 Blood Pressure 1: 120/76 Code: 8480-6 BMI: 30.3 Code: 81554-9 Heart Rate 1: 68 bpm Height: 5'3" Respiratory Rate: 22 bpm Temperature: 36.5 (C ) / 97.7 (F) Weight: 171 lbs 06/22/2014 Blood Pressure 1: 124/78 Code: 8480-6 BMI: 30.3 Code: 60954-4 Heart Rate 1: 80 bpm Height: 5'3" Respiratory Rate: 20 bpm Temperature: 36.1 (C ) / 97.0 (F) Weight: 171 lbs 11/14/2013 Blood Pressure 1: 102/70 Code: 8480-6 Heart Rate 1: 88 bpm Respiratory Rate: 20 bpm Temperature: 36.8 (C) / 98.2 (F) Weight: 180 lbs 10/04/2013 Blood Pressure 1: 126/74 Code: 8480-6 Heart Rate 1: 84 bpm Respiratory Rate: 20 bpm Temperature: 36.7 (C) / 98.0 (F) Weight: 188 lbs 09/05/2013 Blood Pressure 1: 116/70 Code: 8480-6 Heart Rate 1: 80 bpm Respiratory Rate: 20 bpm Temperature: 36.7 (C) / 98.1 (F) Weight: 214 lbs 11/04/2009 Blood Pressure 1: 130/74 Code: 8480-6 BMI: 25.5 Code: 04121-0 Heart Rate 1: 80 bpm Height: 5'3" Temperature: 36.1 (C ) / 97.0 (F) Weight: 144 lbs Functional Status No Functional Status data History of Present Illness Symptom Name Status Resu lt Effective Date Notes cough Location in the roat 05/26/2017 None cough Quality acute 05/26/2017 None cough Quality dry 05/26/2017 None cough Quality hacking 05/26/2017 None cough Onset and Resolution ongoing 05/26/2017 None cough Onset of Symptom 3 -5 days ago 05/26/2017 None fatigue Quality acute 05/26/2017 None fatigue Quality worsening 05/26/2017 None fatigue Onset and Resolution ongoing 05/26/2017 None headache Location diffus cuca 05/26/2017 None headache Quality acute 05/26/2017 None headache Quality aching 05/26/2017 None headache Quality pressure 05/26/2017 None headache Onset and Resolution ongoing 05/26/2017 None headache Onset of Symptom 3-5 days ago 05/26/2017 None sore throat Location dif fusely 05/26/2017 None sore throat Quality acute 05/26/2017 None sore throat Quality achi ng 05/26/2017 None sore throat Quality burn ing 05/26/2017 None sore throat Onset and Resolution gradual in onset 05/26/2017 None sore throat Onset of Symptom 3-5 days ago 05/26/2017 None fever Quality acute 05/26/2017 None fever Quality intermitte nt 05/26/2017 None fever Quality worsening 05/26/2017 None fever Onset and Resolution ongoing 05/26/2017 None fever Onset of Symptom 3 -5 days ago 05/26/2017 None myalgias Location diffus cuca 05/26/2017 None myalgias Quality acute 05/26/2017 None myalgias Quality aching 05/26/2017 None myalgias Quality burning 05/26/2017 None myalgias Onset and Resolution gradual in onset 05/26/2017 None myalgias Onset and Resolution ongoing 05/26/2017 None cough Location in the th roat 02/22/2017 None cough Quality acute 02/22/2017 None cough Quality productive 02/22/2017 Green Sputum cough Quality hacking 02/22/2017 None cough Onset and Resolution ongoing 02/22/2017 None cough Onset of Symptom 1 0 days ago 02/22/2017 None fatigue Quality acute 02/22/2017 None fatigue Quality intermit tent 02/22/2017 None fatigue Quality worsening 02/22/2017 None fatigue Onset and Resolution ongoing 02/22/2017 None fatigue Onset of Symptom 7-10 days ago 02/22/2017 None myalgias Location diffus cuca 02/22/2017 None myalgias Quality acute 02/22/2017 None myalgias Quality aching 02/22/2017 None myalgias Onset and Resolution gradual in onset 02/22/2017 None myalgias Onset of Symptom 2-3 days ago 02/22/2017 None headache Location in the occipital area 02/22/2017 None headache Quality acute 02/22/2017 None headache Quality aching 02/22/2017 None headache Onset and Resolution gradual in onset 02/22/2017 None headache Onset of Symptom 7-10 days ago 02/22/2017 None fever Quality acute 02/22/2017 None fever Quality intermitte nt 02/22/2017 None fever Quality waxing and waning 02/22/2017 None fever Onset and Resolution ongoing 02/22/2017 None fever Onset of Symptom 1 -2 days ago 02/22/2017 None pleurisy Exacerbating Factors coughing 02/09/2017 None pleurisy Exacerbating Factors deep breathing 02/09/2017 None pleurisy Frequency of Episodes daily 02/09/2017 None cough Location in the th roat 02/09/2017 None cough Location in the minerva ng 02/09/2017 None cough Quality acute 02/09/2017 None cough Quality dry 02/09/2017 None cough Quality hacking 02/09/2017 None cough Onset and Resolution ongoing 02/09/2017 None cough Onset of Symptom 3 weeks ago 02/09/2017 None headache Location diffus cuca 02/09/2017 None headache Quality acute 02/09/2017 None headache Quality pressure 02/09/2017 None headache Quality sharp 02/09/2017 None headache Quality squeezi ng 02/09/2017 None headache Onset and Resolution ongoing 02/09/2017 None onychodystrophy Location on toenails of the left foot 10/20/2016 great toenail onychodystrophy Quality discoloration 10/20/2016 None onychodystrophy Quality painful 10/20/2016 on inside edge onychodystrophy Quality worsening 10/20/2016 None onychodystrophy Onset of Symptom 4 months ago 10/20/2016 None postnasal drip Quality a cute 06/29/2016 None postnasal drip Quality p urulent 06/29/2016 None postnasal drip Quality t hick 06/29/2016 None postnasal drip Quality w orsening 06/29/2016 None postnasal drip Onset and Resolution gradual in onset 06/29/2016 None postnasal drip Onset of Symptom 7-10 days ago 06/29/2016 None cough Location in the th roat 06/29/2016 None cough Quality acute 06/29/2016 None cough Quality dry 06/29/2016 None cough Quality hacking 06/29/2016 None cough Quality interrupts sleep 06/29/2016 None cough Onset and Resolution sudden in onset 06/29/2016 None cough Onset of Symptom 7 -10 days ago 06/29/2016 None nasal discharge Location in both nares 06/29/2016 None nasal discharge Quality acute 06/29/2016 None nasal discharge Quality intermittent 06/29/2016 None nasal discharge Quality stable 06/29/2016 None nasal discharge Quality worsening 06/29/2016 None nasal discharge Onset of Symptom 7-10 days ago 06/29/2016 None headache Location diffus cuca 06/29/2016 None headache Quality acute 06/29/2016 None headache Quality aching 06/29/2016 None headache Onset of Symptom 7-10 days ago 06/29/2016 None sore throat Location dif fusely 06/29/2016 None sore throat Quality acute 06/29/2016 None sore throat Quality achi ng 06/29/2016 None sore throat Quality dull 06/29/2016 None sore throat Quality scra tchy 06/29/2016 None sore throat Onset and Resolution sudden in onset 06/29/2016 None sore throat Onset of Symptom 7-10 days ago 06/29/2016 None otalgia Location on both sides 06/29/2016 None otalgia Quality acute 06/29/2016 None otalgia Quality dull 06/29/2016 None otalgia Quality pressure 06/29/2016 None otalgia Onset and Resolution sudden in onset 06/29/2016 None otalgia Onset of Symptom 7-10 days ago 06/29/2016 None cough Quality productive 06/29/2016 None nasal discharge Quality green 06/29/2016 None nasal discharge Quality thick 06/29/2016 None sinus congestion Quality acute 06/29/2016 None sinus congestion Quality fullness 06/29/2016 None sinus congestion Quality pain 06/29/2016 None sinus congestion Quality pressure 06/29/2016 None sinus congestion Onset of Symptom _ days ago 06/29/2016 None sinus pain Location diff usely 05/18/2016 None sinus pain Quality acute 05/18/2016 None sinus pain Quality fulln ess 05/18/2016 None sinus pain Quality pain 05/18/2016 None sinus pain Quality press ure 05/18/2016 None sinus pain Quality purul ent 05/18/2016 None sinus pain Quality worse dhaval 05/18/2016 None sinus pain Onset and Resolution ongoing 05/18/2016 None sinus pain Onset of Symptom 1 month ago 05/18/2016 None headache Location diffus cuca 05/18/2016 None headache Quality acute 05/18/2016 None headache Quality pressure 05/18/2016 None headache Quality squeezi ng 05/18/2016 None headache Quality throbbi ng 05/18/2016 None headache Onset and Resolution sudden in onset 05/18/2016 None headache Onset of Symptom 3-4 days ago 05/18/2016 None otalgia Location on both sides 05/18/2016 None otalgia Quality acute 05/18/2016 None otalgia Quality sharp 05/18/2016 None otalgia Quality worsening 05/18/2016 None otalgia Onset and Resolution sudden in onset 05/18/2016 None otalgia Onset of Symptom 1-2 days ago 05/18/2016 None cough Location in the th roat 05/18/2016 None cough Quality acute 05/18/2016 None cough Quality hacking 05/18/2016 None cough Quality productive 05/18/2016 None cough Onset of Symptom _ days ago 05/18/2016 None nasal discharge Location in both nares 05/18/2016 None nasal discharge Quality acute 05/18/2016 None nasal discharge Quality green 05/18/2016 None nasal discharge Quality thick 05/18/2016 None nasal discharge Quality worsening 05/18/2016 None nasal discharge Onset of Symptom _ days ago 05/18/2016 None sinus congestion Quality acute 05/18/2016 None sinus congestion Quality fullness 05/18/2016 None sinus congestion Quality pain 05/18/2016 None sinus congestion Quality pressure 05/18/2016 None sinus congestion Onset of Symptom _ days ago 05/18/2016 None sinus congestion Quality acute 03/04/2016 None sinus congestion Quality fullness 03/04/2016 None sinus congestion Quality pain 03/04/2016 None sinus congestion Quality pressure 03/04/2016 None sinus congestion Location on both sides 03/04/2016 None sinus congestion Onset of Symptom 10-14 days ago 03/04/2016 None vomiting Quality acute 03/04/2016 None vomiting Quality project ile 03/04/2016 None vomiting Quality mucous 03/04/2016 None vomiting Onset of Symptom 10-14 days ago 03/04/2016 None cough Location in the th roat 03/04/2016 None cough Quality acute 03/04/2016 None cough Quality hacking 03/04/2016 None cough Quality productive 03/04/2016 None cough Onset of Symptom _ days ago 03/04/2016 None nasal discharge Location in both nares 03/04/2016 None nasal discharge Quality acute 03/04/2016 None nasal discharge Quality green 03/04/2016 None nasal discharge Quality thick 03/04/2016 None nasal discharge Quality worsening 03/04/2016 None nasal discharge Onset of Symptom _ days ago 03/04/2016 None eye erythema Location in the right conjunctiva 07/11/2014 None eye erythema Location on the right eye 07/11/2014 None eye erythema Quality acu te 07/11/2014 None eye erythema Onset of Symptom 1 day ago 07/11/2014 None myalgias Location diffus cuca 06/22/2014 None myalgias Quality aching 06/22/2014 None myalgias Onset of Symptom 7 days ago 06/22/2014 None headache Location diffus cuca 06/22/2014 None headache Quality aching 06/22/2014 None headache Onset of Symptom 7 days ago 06/22/2014 None chest congestion Quality acute 06/22/2014 None chest congestion Onset of Symptom 7 days ago 06/22/2014 None sinus congestion Location on both sides 06/22/2014 None sinus congestion Quality acute 06/22/2014 None sinus congestion Quality fullness 06/22/2014 None sinus congestion Quality pain 06/22/2014 None sinus congestion Quality pressure 06/22/2014 None sinus congestion Onset of Symptom 7 days ago 06/22/2014 None sinusitis Quality pain 11/14/2013 None sinusitis Quality pressu re 11/14/2013 None sinusitis Quality purule nt 11/14/2013 None sinusitis Quality green 11/14/2013 None sinusitis Onset and Resolution sudden in onset 11/14/2013 None sinusitis Onset of Symptom 5 days ago 11/14/2013 None breast complaint Quality pain 10/04/2013 Diagnosed with mastitis a nd put on Dicloxacillin 500mg breast complaint Onset and Resolution ongoing 10/04/2013 None back pain Location lumba r-sacral spine 10/04/2013 None back pain Onset and Resolution ongoing 10/04/2013 None cough Quality hacking 09/05/2013 None cough Quality dry 09/05/2013 None nasal discharge Location in both nares 09/05/2013 None nasal discharge Quality thick 09/05/2013 None nasal discharge Quality yellow 09/05/2013 None nasal discharge Onset and Resolution ongoing 09/05/2013 had pneumonia 3 w eeks ago nasal discharge Onset of Symptom 2 weeks ago 09/05/2013 None pleurisy Location on the right side of the chest 11/04/2009 Radiates to left shoulder pleurisy Onset of Symptom 7 hours ago 11/04/2009 None pleurisy Quality sharp 11/04/2009 None pleurisy Quality stabbing 11/04/2009 None gas and bloating Location in the epigastric area 11/04/2009 None gas and bloating Onset of Symptom 1 days ago 11/04/2009 None gas and bloating Severity moderate 11/04/2009 None vomiting Quality food pa rticles 11/04/2009 None vomiting Onset of Symptom 6 hours ago 11/04/2009 None vomiting Severity modera te 11/04/2009 None vomiting Frequency of Episodes hourly 11/04/2009 None Advance Directives No Advance Directive data Encounters Encounter Performer Loca tion Codes Date ([id number]) NURSE/OUTPAT IENT VISIT EST Diagnosis: FLU VACCINE[ICD10: Z23] [facility] CPT-4: 12322 04/05/2018 OFFICE/OUTPATIENT SIT EST Diagnosis: Influenza due to identified novel influenza A virus with other respiratory manifestations[ICD10: J09.X2] Aspen [facility]TERO [facility] CPT-4: 89551 05/26/2017 ([id number]) OFFICE/OUTPA TIENT VISIT EST Diagnosis: Acute upper respiratory infection, unspecified[ICD10: J06.9] Maggie [facility]TERO [facility] CPT-4: 98526 02/23/2017 OFFICE/OUTPATIENT SIT EST Diagnosis: Migraine without aura, not intractable, without status migrainosus[ICD10: G43.009] Diagnosis: Cough[ICD10: R05] Aspen OTERO [facility] CPT-4: 43885 02/22/2017 OFFICE/OUTPATIENT SIT EST Diagnosis: Migraine without aura, not intractable, without status migrainosus[ICD10: G43.009] Diagnosis: Pneumonia due to other specified bacteria[ICD10: J15.8] Aspen SANDOVAL [facility] CPT-4: 66812 02/09/2017 OFFICE/OUTPATIENT SIT EST Diagnosis: Tinea unguium[ICD10: B35.1] Diagnosis: Nail dystrophy[ICD10: L60.3] Diagnosis: Ingrowing nail[ICD10: L60.0] [facility] 24308 10/20/2016 ([id number]) OFFICE/OUTPA TIENT VISIT EST Diagnosis: Acute upper respiratory infection, unspecified[ICD10: J06.9] Diagnosis: Acute frontal sinusitis, unspecified[ICD10: J01.10] Staciyan [facility]ga [facility] 52219 06/29/2016 ([id number]) OFFICE/OUTPA TIENT VISIT EST Diagnosis: Acute maxillary sinusitis, unspecified[ICD10: J01.00] Diagnosis: Acute frontal sinusitis, unspecified[ICD10: J01.10] Staci [facility] 18258 05/18/2016 ([id number]) OFFICE/OUTPA TIENT VISIT EST Diagnosis: Acute upper respiratory infection, unspecified[ICD10: J06.9] Diagnosis: Acute maxillary sinusitis, unspecified[ICD10: J01.00] Staci OTERO [facility] CPT-4: 05238 03/04/2016 ([id number]) OFFICE/OUTPA TIENT VISIT EST Diagnosis: FLU VACCINE[ICD10: Z23] Maggie OTERO [facility] CPT-4: 22017 02/27/2016 ([id number]) OFFICE/OUTPA TIENT VISIT EST Diagnosis: Migraine, unspecified, not intractable, without status migrainosus[ICD10: G43.909] Maggie OTERO [facility] CPT-4: 09809 11/07/2015 ([id number]) OFFICE/OUTPA TIENT VISIT EST Diagnosis: Migraine, unspecified, not intractable, without status migrainosus[ICD10: G43.909] Maggie [facility]TERO [facility] CPT-4: 81911 08/15/2015 ([id number]) OFFICE/OUTPA TIENT VISIT EST Diagnosis: Myalgia[ICD9: 729.1] Maggie [facility]TERO [facility] CPT-4: 68036 07/12/2014 ([id number]) OFFICE/OUTPA TIENT VISIT EST Diagnosis: Conjunctivitis[ICD9: 372.30] Tania OTERO [facility] CPT-4: 55823 07/11/2014 ([id number]) OFFICE/OUTPA TIENT VISIT EST Diagnosis: SINUSITIS, ACUTE[ICD9: 461.9] Diagnosis: COUGH[ICD9: 786.2] Diagnosis: FEBRILE ILLNESS[ICD9: 780.60] Tania [facility] CPT-4: 34736 06/22/2014 OFFICE/OUTPATIENT SIT EST Diagnosis: SINUSITIS, ACUTE[ICD9: 461.9] Tania CarvajalSvitlanamelissa OTERO [facility] CPT-4: 59363 11/14/2013 OFFICE/OUTPATIENT SIT EST Diagnosis: Mastitis[ICD9: 611.0] Diagnosis: PAIN, LOWER BACK[ICD9: 724.2] Maggie [facility] CPT-4: 53239 10/04/2013 ([id number]) OFFICE/OUTPA TIENT VISIT EST Diagnosis: SINUSITIS, ACUTE[ICD9: 461.9] Diagnosis: ALLERGIC RHINITIS[ICD9: 477.9] Maggie [facility] CPT-4: 39303 09/05/2013 ([id number]) OFFICE/OUTPA TIENT VISIT, NEW Maggie [facility]MPHRE[facility] CPT-4: 92726 11/04/2009 Plan of Care Planned Activity Notes C odes Status Date Appointment: Maggie Otero WPtel: [facility] [address] INJECTION 04/05/2018 Patient Education: INFLUENZA VACCINE CDC Completed 04/05/2018 Visit Diagnosis Plan: Influenza due to i dentified novel influenza A virus with other respiratory manifestations Discussion: patient past time for tamiflu since symptoms started wednesday evening. tamiflu prophylaxis given to children. patient has cough medicine at home that she has been using. instructed to drink lots of water and rest. call or rtc with any worsening symptoms. discussed length of illness for influenza and importance of receiving flu shot in the future. no work for rest of week. ICD-9 : 488.02 ICD-10 : J09.X2 05/26/2017 Appointment: Aspen Greene [address] [place] [address] ACUTE ILLNESS 05/26/2017 Patient Education: Patient Medication Summary Completed 05/26/2017 Appointment: Maggie Otero WPtel: [facility] [address] LAB 02/23/2017 Patient Education: Patient Medication Summary Completed 02/23/2017 Visit Diagnosis Plan: Migraine without a ura, not intractable, without status migrainosus Discussion: onzetra given to patient vlad suarez in office with immediate relief. samples given to patient to take home to try for future script. ICD-9 : 346.10 ICD-10 : G43.009 02/22/2017 Visit Diagnosis Plan: Cough Discussi on: cxray ordered for patient to be completed today. breathing treatment given to patient while in clinic with positive results. short acting inhaler prescribed to patient to take every 4 hours prn SOB or cough. cxray was wnl. prednisone ordered to be taken daily for 5 days. instructed to call if worsening symptoms or RTC. if after hours, go to ED. will await sputum results as soon as they are brought in. ICD-9 : 786.2 ICD-10 : R05 02/22/2017 Appointment: Aspen Greene [address] [place] [address] ACUTE ILLNESS 02/22/2017 Patient Education: Patient Medication Summary Completed 02/22/2017 Care Plan: CHEST X-RAY 2VW FRONTAL&LATL LOINC : 24839-4 Pending 02/22/2017 Visit Diagnosis Plan: Migraine without a ura, not intractable, without status migrainosus Discussion: fioricet refilled to be take n prn migraines toradol injection administered at this visit if no symptom relief by this week, call or RTC. ICD-9 : 346.10 ICD-10 : G43.009 02/09/2017 Visit Diagnosis Plan: Pneumonia due to o ther specified bacteria Discussion: increase fluid intake. Recommendations: clarithromycin 500 mg bid for 7 days ordered [place] [place] for symptom relief ok to take tylenol/ibuprofen no work for 24 hours within antibiotic start. ICD-9 : 482.81 ICD-10 : J15.8 02/09/2017 Appointment: Aspen Greene [address] [place], [place] [address] ACUTE ILLNESS 02/09/2017 Patient Education: Patient Medication Summary Completed 02/09/2017 Visit Diagnosis Plan: Tinea unguium Discussion: Trial of Jublia Discussed orals but will hold since is Notify if any signs of infection to surrounding nailbed and tissue ICD-9 : 110.1 ICD-10 : B35.1 10/20/2016 Visit Diagnosis Plan: Ingrowing nail Discussion: Warm epsom salt soaks and pull up edge of nailbed and watch for signs of inection, cut toenails off straight across ICD-9 : 703.0 ICD-10 : L60.0 10/20/2016 Appointment: Maggie Otero WPtel: [address] [place], [place] [phone] ACUTE ILLNESS 10/20/2016 Patient Education: Patient Medication Summary Completed 10/20/2016 Visit Diagnosis Plan: Acute frontal sinusitis, unspeci fied Discussion: Rx as above Continue supportive care safe during approved by OBGYN Rest, fluids, humidifier, etc Follow up PRN ICD-9 : 461.1 ICD-10 : J01.10 06/29/2016 Appointment: Staci Ortega [address] [place] [address] ACUTE ILLNESS 06/29/2016 Patient Education: Patient Medication Summary Completed 06/29/2016 Visit Plan: Patient states amoxicil johnny and zpaks don't work for her Rx as above which she has tolerated well in the past Patient to discuss OTC meds with her OBGYN that they approve during for symptom relief Follow up PRN 05/18/2016 Visit Plan: Patient states amoxicil johnny and zpaks don't work for her Rx as above which she has tolerated well in the past Patient to discuss OTC meds with her OBGYN that they approve during for symptom relief Follow up PRN 05/18/2016 Appointment: Staci Ortega [address] [place] [address] ACUTE ILLNESS 05/18/2016 Patient Education: Patient Medication Summary Completed 05/18/2016 Visit Plan: Rx as above Reviewed lee pportive care and OTC meds safe during Follow up PRN 03/04/2016 Visit Plan: Rx as above Reviewed lee pportive care and OTC meds safe during Follow up PRN 03/04/2016 Appointment: Staci Ortega [address] [place], [place] [phone] ACUTE ILLNESS 03/04/2016 Patient Education: Patient Medication Summary Completed 03/04/2016 Appointment: Maggie Otero WPtel: [address] [place], [place] [phone] [place] INJECTION 02/27/2016 Patient Education: Patient Medication Summary Completed 02/27/2016 Appointment: Maggie Otero WPtel:[phone] [facility] [place] Consult 11/07/2015 Patient Education: Patient Medication Summary Completed 11/07/2015 Appointment: Maggie Otero WPtel: [facility] [place] INJECTION 08/15/2015 Patient Education: Patient Medication Summary Completed 08/15/2015 Visit Plan: Patient presented herse in office with flu-like symptoms (CAMPO, Nausea, Fever, myalgias). She also was having abdominal cramping and Diarrhea. Flu test performed and negative. Per Dr Otero call out Zofran 4mg to be taken [id number] Prn Nausea #10. Pt informed to drink plenty of fluids, small sips at a time, no fruit juices, and start BRAT diet when able. Also, to expect diarrhea to get worse before better. Patient is too call office if worsening. 07/12/2014 Appointment: Maggie Otero WPtel: [address] [place], [place] [phone] FLU SWAB 07/12/2014 Patient Education: Patient Medication Summary Completed 07/12/2014 Visit Plan: Tobramycin opth. gtts t o Rt. eye every hour until symptoms improved then QID x 7 days. Good handwashing No work today. May return tomorrow if symptoms improved. 07/11/2014 Appointment: Tania Johnson WPtel: [address] [place], [place] [phone] ACUTE ILLNESS 07/11/2014 Patient Education: Patient Medication Summary Completed 07/11/2014 Visit Plan: Depo Medrol 40mg/ Kenal og 40 mg IM Daily nasal saline rinses Complete azithromycin DC Patanase and Start Rhinocort as directed. 06/22/2014 Appointment: Tania Johnson WPtel: [address] [place], [place] [phone] ACUTE ILLNESS 06/22/2014 Patient Education: Patient Medication Summary Completed 06/22/2014 Patient Education: [employer] - Antibi otics, Analgesics 18+, Oral Contraceptives F 18+ Completed 06/22/2014 Visit Plan: Continue Mucinex, nasal spray, and benadryl Complete Augmentin BID x 10 days 11/14/2013 Appointment: Tania Johnson WPtel: [address] [place] [address] ACUTE ILLNESS 11/14/2013 Patient Education: Patient Medication Summary Completed 11/14/2013 Visit Plan: Finish doxacillin Use n aprosyn alternating with tylenol Continue pumping left breast every 2hrs May use cool compress Tramadol prn for severe back pain 10/04/2013 Appointment: Maggie Otero WPtel: [address] [place] [address] ACUTE ILLNESS 10/04/2013 Patient Education: Patient Medication Summary Completed 10/04/2013 Visit Plan: Claritin in AM and [place] dryl q HS Change patanase to Rhinocort AQ Zithromax for 1week 09/05/2013 Appointment: Maggie Otero WPtel: [address] [place] [address] ACUTE ILLNESS 09/05/2013 Patient Education: Patient Medication Summary Completed 09/05/2013 Appointment: Maggie Otero WPtel: [address] [place] [address] FOLLOW UP 11/12/2009 Visit Plan: chest x-ray ordered. Re cently treated by Dr. Zavaleta / Kong Millard have treated her frequently for the cough. Pt. reports being treated at urgent care also. Pt will sign release of records. Continue inhaler. Pt. is considered a new patient. (reports she was part of the practice several years ago) Pt. is given follow up appnt. for chronic cough. Chest x-ray ordered. (HCG urine is negative) 11/04/2009 Appointment: Dorie Fischer WPtel: [address] [place] [address] ACUTE ILLNESS 11/04/2009 Patient Education: Patient Medication Summary Completed 11/04/2009 Instructions Comment . Rx as above Reviewed supportive care and OTC meds safe during Follow up PRN . Rx as above Reviewed supportive care and OTC meds safe during Follow up PRN . chest x-ray ordere d. Recently treated by Dr. Zavaleta / Kong Millard have treated her frequently for the cough. Pt. reports being treated at urgent care also. Pt will sign release of records. Continue inhaler. Pt. is considered a new patient. (reports she was part of the practice several years ago) Pt. is given follow up appnt. for chronic cough. Chest x-ray ordered. (HCG urine is negative) . Depo Medrol 40mg/ Kenalog 40 mg IM Daily nasal saline rinses Complete azithromycin DC Patanase and Start Rhinocort as directed. . Continue Mucinex, nasal spray, and benadryl Complete Augmentin BID x 10 days . Tobramycin opth. g tts to Rt. eye every hour until symptoms improved then QID x 7 days. Good handwashing No work today. May return tomorrow if symptoms improved. . Patient states jg xicillin and zpaks don't work for her Rx as above which she has tolerated well in the past Patient to discuss OTC meds with her OBGYN that they approve during for symptom relief Follow up PRN . Patient states jg xicillin and zpaks don't work for her Rx as above which she has tolerated well in the past Patient to discuss OTC meds with her OBGYN that they approve during for symptom relief Follow up PRN . Claritin in AM and Benadryl q HS Change patanase to Rhinocort AQ Zithromax for 1week . Finish doxacillin Use naprosyn alternating with tylenol Continue pumping left breast every 2hrs May use cool compress Tramadol prn for severe back pain . Patient presented herself in office with flu-like symptoms (CAMPO, Nausea, Fever, myalgias). She also was having abdominal cramping and Diarrhea. Flu test performed and negative. Per Dr Otero call out Zofran 4mg to be taken [id number] Prn Nausea #10. Pt informed to drink plenty of fluids, small sips at a time, no fruit juices, and start BRAT diet when able. Also, to expect diarrhea to get worse before better. Patient is too call office if worsening.
--- OUTSIDE RECORDS SUMMARY | 2019-08-18 22:21 | XMS REPORT ---
Author Author Heidi ZIMMERMAN Organization [facility] Address [address] [place] [address] Care Team Providers Care Export Administrator Name Role Phone ERASMO BRIANA Unavailable PROBLEMS Type Condition ICD9-CM Code [id number] Code Onset Dates Condition S tatus SNOMED Code Problem Adjustment disorder with depressed mood 309.0 Active [id number] Problem Reactive depression F32.9 Active 81553162 ALLERGIES No Information ENCOUNTERS Encounter Location Date Diagnosis [facility] [address] [id number] [place] [id number] Dec, Reactive depression F32.9 [facility] [id number] [place] [phone] 13 Oct, 2015 Physical examination of empl oyee Z02.89 and Screening for tuberculosis Z11.1 [facility] [address] [phone] Dec, Physical examination of empl oyee V70.5 and Encounter for drug screening V72.85 [facility] [address] [id number] [place] [phone] Mar, [facility] [id number] [place] [phone] Mar, [facility] [id number] [place] [phone] Mar, [facility] [address] [id number] [place] [phone] Mar, [facility] [id number] [place] [phone] Aug, [facility] [id number] [place] [phone] Feb, IMMUNIZATIONS No Known Immunizations SOCIAL HISTORY Never Assessed REASON FOR VISIT PLAN OF CARE VITAL SIGNS MEDICATIONS Unknown Medications RESULTS No Results PROCEDURES No Known procedures INSTRUCTIONS MEDICATIONS ADMINISTERED No Known Medications MEDICAL (GENERAL) HISTORY Type Description Date Medical History Headaches Surgical History ovarian cyst
--- OUTSIDE RECORDS SUMMARY | 2019-08-18 22:22 | XMS REPORT | Continuity of Care Document ---
Author Organization Unknown Address Unknown Phone Unavailable Allergies Active Description Code Type Severity Reaction Onset Reported/Identified Relationship to Patient Clinical Status Yes codeine [id number] Drug Allergy Unknown NAUSEA 08/13/2016 Yes morphine [id number] Drug Allergy Unknown N/A 08/13/2016 Yes codeine [id number] Drug Allergy Mild NAUSEA 12/09/2017 Yes morphine [id number] Drug Allergy Mild NAUSEA 12/09/2017 Medications There is no data. Problems Date Dx Coded Attending Type Code Diagnosis Diagnosed By 06/01/2008 724.5 BACKACHE 06/01/2008 V70.5 NORM AL PRE- EMPLOYMENT SCREENING EXAMINATION 06/01/2008 CHELITA ODEN DDS D 72 4.5 BACKACHE 06/01/2008 CHELITA ODEN DDS V7 0.5 NORMAL PRE-EMPLOYMENT SCREENING EXAMINATION 06/11/2008 V74.1 SCRE ENING EXAMINATION FOR PULMONARY TUBERCULOSIS 06/11/2008 CHELITA ODEN DDS V7 4.1 SCREENING EXAMINATION FOR PULMONARY TUBERCULOSIS 11/14/2009 Ot 574.10 11/22/2009 Ot 530.11 11/22/2009 Ot 531.90 11/22/2009 Ot 535.40 11/22/2009 Ot 553.3 03/04/2011 Ot 353.8 NERV ROOT/PLEXUS DIS NEC 03/04/2011 Ot 729.2 NEUR ALGIA/NEURITIS NOS 03/04/2011 Ot 789.00 ABD OMINAL PAIN, UNSPECIFIED SITE 03/04/2011 Ot V57.1 PHYS ICAL THERAPY NEC 09/03/2011 309.0 AD A DJ D/O W DEPRESSED 09/03/2011 CHELITA ODEN DDS 30 9.0 AD ADJ D/O W DEPRESSED 01/05/2012 Ot V57.1 PHYS ICAL THERAPY NEC 01/05/2012 Ot V58.49 OTH ER SPECIFIED AFTERCARE FOLLOWING SURG 06/04/2014 GRZEGORZ MCGRATH SPRING MAKER Ot 256.4 06/04/2014 GRZEGORZ MCGRATH SPRING MAKER Ot 368.9 06/04/2014 ALCIDESGRZEGORZ SPRING MAKER Ot 784.0 11/13/2014 Ot 786.2 11/13/2014 Ot 574.20 11/13/2014 Ot 256.4 11/13/2014 Ot 256.4 11/13/2014 Ot 536.8 11/13/2014 Ot 789.00 11/13/2014 Ot 240.9 11/13/2014 Ot 626.0 11/13/2014 ЕЛЕНА BARRIOS, AARTI Ot V22.1 11/13/2014 ЕЛЕНА BARRIOS, AARTI Ot 648.83 11/13/2014 ALCIDES GRZEGORZ L SPRING MAKER Ot 724.6 11/13/2014 ALCIDES GRZEGORZ L SPRING MAKER Ot 244.9 11/13/2014 ALCIDES GRZEGORZ L SPRING MAKER Ot 256.4 11/13/2014 ALCIDES GRZEGORZ L SPRING MAKER Ot 266.2 11/13/2014 ALCIDES GRZEGORZ L SPRING MAKER Ot 268.9 11/13/2014 ALCIDES GRZEGORZ L SPRING MAKER Ot 275.2 11/13/2014 ALCIDES GRZEGORZ L SPRING MAKER Ot V58.69 11/13/2014 ALCIDES GRZEGORZ L SPRING MAKER Ot 729.2 11/13/2014 GONZALES MCGRATH DO Ot 255.41 11/13/2014 ALCIDES GRZEGORZ L SPRING MAKER Ot 244.9 11/13/2014 ALCIDES GRZEGORZ L SPRING MAKER Ot 246.8 11/13/2014 ALCIDES GRZEGORZ L SPRING MAKER Ot 626.0 11/13/2014 ALCIDES GRZEGORZ L SPRING MAKER Ot 256.4 11/13/2014 ALCIDES GRZEGORZ L SPRING MAKER Ot 368.9 11/13/2014 ALCIDES GRZEGORZ L SPRING MAKER Ot 784.0 12/19/2014 Ot 786.2 12/19/2014 Ot 574.20 12/19/2014 Ot 256.4 12/19/2014 Ot 256.4 12/19/2014 Ot 536.8 12/19/2014 Ot 789.00 12/19/2014 Ot 240.9 12/19/2014 Ot 626.0 12/19/2014 ЕЛЕНА BARRIOS, AARTI Ot V22.1 12/19/2014 ЕЛЕНА BARRIOS, AARTI Ot 648.83 12/19/2014 ALCIDES GRZEGORZ L SPRING MAKER Ot 724.6 12/19/2014 MCGRATH, GRZEGORZ L SPRING MAKER Ot 244.9 12/19/2014 MCGRATH, GRZEGORZ L SPRING MAKER Ot 256.4 12/19/2014 MCGRATH, GRZEGORZ L SPRING MAKER Ot 266.2 12/19/2014 ALCIDES GRZEGORZ L SPRING MAKER Ot 268.9 12/19/2014 MCGRATH, GRZEGORZ L SPRING MAKER Ot 275.2 12/19/2014 ALCIDES GRZEGORZ L SPRING MAKER Ot V58.69 12/19/2014 ALCIDES GRZEGORZ L SPRING MAKER Ot 729.2 12/19/2014 GONZALES MCGRATH DO Ot 255.41 12/19/2014 ALCIDES GRZEGORZ L SPRING MAKER Ot 244.9 12/19/2014 ZOFIA MCGRATHRICIA L SPRING MAKER Ot 246.8 12/19/2014 ALCIDES GRZEGORZ L SPRING MAKER Ot 626.0 12/19/2014 ALCIDES GRZEGORZ L SPRING MAKER Ot 256.4 12/19/2014 ALCIDES GRZEGORZ L SPRING MAKER Ot 368.9 12/19/2014 ALCIDES GRZEGORZ L SPRING MAKER Ot 784.0 01/04/2015 GONZALES MCGRATH DO Ot 256.4 01/31/2015 Ot 786.2 01/31/2015 Ot 574.20 01/31/2015 Ot 256.4 01/31/2015 Ot 256.4 01/31/2015 Ot 536.8 01/31/2015 Ot 789.00 01/31/2015 Ot 240.9 01/31/2015 Ot 626.0 01/31/2015 ЕЛЕНА BARRIOS, AARTI Ot V22.1 01/31/2015 ЕЛЕНА BARRIOS, AARTI Ot 648.83 01/31/2015 ALCIDES GRZEGORZ L SPRING MAKER Ot 724.6 01/31/2015 ALCIDES GRZEGORZ L SPRING MAKER Ot 244.9 01/31/2015 ALCIDES GRZEGORZ L SPRING MAKER Ot 256.4 01/31/2015 ALCIDES GRZEGORZ L SPRING MAKER Ot 266.2 01/31/2015 MCGRATHGRZEGORZ YANG SPRING MAKER Ot 268.9 01/31/2015 MCGRATHGRZEGORZ ELLER SPRING MAKER Ot 275.2 01/31/2015 GRZEGORZ MCGRATH SPRING MAKER Ot V58.69 01/31/2015 GRZEGORZ MCGRATH SPRING MAKER Ot 729.2 01/31/2015 GONZALES MCGRATH DO Ot 255.41 01/31/2015 MCGRATHGRZEGORZ YANG SPRING MAKER Ot 244.9 01/31/2015 MCGRATHGRZEGORZ YANG SPRING MAKER Ot 246.8 01/31/2015 MCGRATHGRZEGORZ YANG SPRING MAKER Ot 626.0 01/31/2015 MCGRATHGRZEGORZ YANG SPRING MAKER Ot 256.4 01/31/2015 MCGRATHGRZEGORZ YANG SPRING MAKER Ot 368.9 01/31/2015 MCGRATHGRZEGORZ YANG SPRING MAKER Ot 784.0 01/31/2015 GONZALES MCGRATH DO Ot 256.4 04/10/2015 MCGRATHGRZEGORZ YANG SPRING MAKER Ot E28.2 04/10/2015 MCGRATHGRZEGORZ YANG SPRING MAKER Ot E55.9 04/10/2015 MCGRATHGRZEGORZ YANG SPRING MAKER Ot L68.0 04/10/2015 MCGRATHGRZEGORZ YANG SPRING MAKER Ot Z79.899 04/26/2015 BAILEY VALENCIA DO Ot N83.20 UNSPECIFIED OVARIAN CYSTS 04/26/2015 BAILEY VALENCIA DO Ot R10.2 PELVIC AND PERINEAL PAIN 05/14/2015 BAILEY VALENCIA DO Ot R10.2 05/14/2015 BAILEY VALENCIA DO Ot Z01.812 05/14/2015 BAILEY VALENCIA DO Ot Z11.2 04/09/2016 Ot 256.4 POLY CYSTIC OVARIES 04/09/2016 Ot 256.4 POLY CYSTIC OVARIES 04/09/2016 Ot 536.8 STOM ACH FUNCTION DIS NEC 04/09/2016 Ot 789.00 ABD OMINAL PAIN, UNSPECIFIED SITE 04/09/2016 Ot 240.9 GOIT ER NOS 04/09/2016 Ot 626.0 ABSE NCE OF MENSTRUATION 04/09/2016 AARTI CHRITSIANSEN MD Ot V22.1 SUPERVIS OTH NORMAL PREG 04/09/2016 ЕЛЕНА BARRIOS, AARTI Ot 648.83 ABN GLUCOSE-ANTEPARTUM 04/09/2016 GRZEGORZ MCGRATH SPRING MAKER Ot 724.6 DISORDERS OF SACRUM 04/09/2016 GRZEGORZ MCGRATH SPRING MAKER Ot 244.9 HYPOTHYROIDISM NOS 04/09/2016 GRZEGORZ MCGRATH SPRING MAKER Ot 256.4 POLYCYSTIC OVARIES 04/09/2016 GRZEGORZ MCGRATH SPRING MAKER Ot 266.2 B-COMPLEX DEFIC NEC 04/09/2016 GRZEGORZ MCGRATH SPRING MAKER Ot 268.9 VITAMIN D DEFICIENCY NOS 04/09/2016 GRZEGORZ MCGRATH SPRING MAKER Ot 275.2 DIS MAGNESIUM METABOLISM 04/09/2016 GRZEGORZ MCGRATH SPRING MAKER Ot V58.69 OT MED,LT,CURRENT USE 04/09/2016 GRZEGORZ MCGRATH SPRING MAKER Ot 729.2 NEURALGIA/NEURITIS NOS 04/09/2016 GONZALES MCGRATH DO Ot 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 04/09/2016 GRZEGORZ MCGRATH SPRING MAKER Ot 244.9 HYPOTHYROIDISM NOS 04/09/2016 GRZEGORZ MCGRATH SPRING MAKER Ot 246.8 DISORDERS OF THYROID NEC 04/09/2016 GRZEGORZ MCGRATH SPRING MAKER Ot 626.0 ABSENCE OF MENSTRUATION 04/09/2016 GRZEGORZ MCGRATH SPRING MAKER Ot 256.4 POLYCYSTIC OVARIES 04/09/2016 GRZEGORZ MCGRATH SPRING MAKER Ot 368.9 VISUAL DISTURBANCE NOS 04/09/2016 GRZEGORZ MCGRATH SPRING MAKER Ot 784.0 HEADACHE 04/09/2016 GONZALES MCGRATH DO Ot 256.4 POLYCYSTIC OVARIES 04/09/2016 GRZEGORZ MCGRATH SPRING MAKER Ot E28.2 POLYCYSTIC OVARIAN SYNDROME 04/09/2016 GRZEGORZ MCGRATH SPRING MAKER Ot E55.9 VITAMIN D DEFICIENCY, UNSPECIFIED 04/09/2016 GRZEGORZ MCGRATH SPRING MAKER Ot L68.0 HIRSUTISM 04/09/2016 GRZEGORZ MCGRATH SPRING MAKER Ot Z79.899 OTHER RETIREMENT (CURRENT) DRUG THERAPY 04/09/2016 BAILEY VALENCIA DO Ot R10.2 PELVIC AND PERINEAL PAIN 04/09/2016 BAILEY VALENCIA DO Ot Z01.812 ENCOUNTER FOR PREPROCEDURAL LABORATORY E 04/09/2016 BAILEY VALENCIA DO Ot Z11.2 ENCOUNTER FOR SCREENING FOR OTHER BACTER 05/16/2016 PATITO BARRIOS, ABDELRAHMAN Chong Ot O21. 9 VOMITING OF , UNSPECIFIED 05/16/2016 PATITO BARRIOS, ABDELRAHMAN Chong Ot O99. 89 OTH DISEASES AND CONDITIONS COMPL PREG/C 05/16/2016 PATITO BARRIOS, ABDELRAHMAN Chong Ot R51 HEADACHE 05/18/2016 ANGELES MALAGON MD Ot G43.909 MIGRAINE, UNSP, NOT INTRACTABLE, WITHOUT 05/18/2016 ANGELES MALAGON MD Ot O99.89 OTH DISEASES AND CONDITIONS COMPL PREG/C 05/18/2016 ANGELES MALAGON MD, Ot Z3A.25 25 WEEKS GESTATION OF 05/22/2016 ANGELES MALAGON MD Ot G43.909 MIGRAINE, UNSP, NOT INTRACTABLE, WITHOUT 05/22/2016 ANGELES MALAGON MD Ot O99.89 OTH DISEASES AND CONDITIONS COMPL PREG/C 05/22/2016 ANGELES MALAGON MD Ot Z3A.25 25 WEEKS GESTATION OF 07/13/2016 BAILEY VALENCIA DO Ot O36.8130 DECREASED MOVEMENTS, THIRD TRIMEST 07/13/2016 BAILEY VALENCIA DO Ot Z3A.33 33 WEEKS GESTATION OF 07/16/2016 BAILEY VALENCIA DO Ot O36.8130 DECREASED MOVEMENTS, THIRD TRIMEST 07/16/2016 DOMINGOECH DOBAILEY Ot Z3A.33 33 WEEKS GESTATION OF 07/18/2016 DOMINGOECH BAILEY MULLER Ot O36.8130 DECREASED MOVEMENTS, THIRD TRIMEST 07/18/2016 DOMINGOECH BAILEY MULLER Ot Z3A.33 33 WEEKS GESTATION OF 08/13/2016 BAILEY VALENCIA DO Ot Z01.818 ENCOUNTER FOR OTHER PREPROCEDURAL EXAMIN 08/13/2016 BAILEY VALENCIA DO Ot Z11.2 ENCOUNTER FOR SCREENING FOR OTHER BACTER 08/19/2016 BAILEY VALENCIA DO Ot Z01.818 ENCOUNTER FOR OTHER PREPROCEDURAL EXAMIN 08/19/2016 BAILEY VALENCIA DO Ot Z11.2 ENCOUNTER FOR SCREENING FOR OTHER BACTER 08/22/2016 BAILEY VALENCIA DO Ot D6 2 ACUTE POSTHEMORRHAGIC ANEMIA 08/22/2016 BAILEY VALENCIA DO Ot O90.81 ANEMIA OF THE PUERPERIUM 08/22/2016 BAILEY VALENCIA DO Ot Z37.0 SINGLE LIVE 08/22/2016 BAILEY VALENCIA DO Ot Z3A.39 39 WEEKS GESTATION OF 08/22/2016 BAILEY VALENCIA DO Ot Z87.59 PERSONAL HISTORY OF COMP OF PREG, CHLDBR 10/30/2016 Ot 240.9 GOIT ER NOS 10/30/2016 Ot 626.0 ABSE NCE OF MENSTRUATION 10/30/2016 ЕЛЕНА BARRIOS, AARTI Ot V22.1 SUPERVIS OTH NORMAL PREG 10/30/2016 AARTI CHRISTIANSEN MD Ot 648.83 ABN GLUCOSE-ANTEPARTUM 10/30/2016 GRZEGORZ MCGRATH SPRING MAKER Ot 724.6 DISORDERS OF SACRUM 10/30/2016 GRZEGORZ MCGRATH SPRING MAKER Ot 244.9 HYPOTHYROIDISM NOS 10/30/2016 GRZEGORZ MCGRATH SPRING MAKER Ot 256.4 POLYCYSTIC OVARIES 10/30/2016 GRZEGORZ MCGRATH SPRING MAKER Ot 266.2 B-COMPLEX DEFIC NEC 10/30/2016 GRZEGORZ MCGRATH SPRING MAKER Ot 268.9 VITAMIN D DEFICIENCY NOS 10/30/2016 GRZEGORZ MCGRATH SPRING MAKER Ot 275.2 DIS MAGNESIUM METABOLISM 10/30/2016 GRZEGORZ MCGRATH SPRING MAKER Ot V58.69 OTH MED,LT,CURRENT USE 10/30/2016 GRZEGORZ MCGRATH SPRING MAKER Ot 729.2 NEURALGIA/NEURITIS NOS 10/30/2016 GONZALES MCGRATH DO Ot 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 10/30/2016 GRZEGORZ MCGRATH SPRING MAKER Ot 244.9 HYPOTHYROIDISM NOS 10/30/2016 GRZEGORZ MCGRATH SPRING MAKER Ot 246.8 DISORDERS OF THYROID NEC 10/30/2016 GRZEGORZ MCGRATH SPRING MAKER Ot 626.0 ABSENCE OF MENSTRUATION 10/30/2016 GRZEGORZ MCGRATH SPRING MAKER Ot 256.4 POLYCYSTIC OVARIES 10/30/2016 GRZEGORZ MCGRATH SPRING MAKER Ot 368.9 VISUAL DISTURBANCE NOS 10/30/2016 GRZEGORZ MCGRATH SPRING MAKER Ot 784.0 HEADACHE 10/30/2016 GONZALES MCGRATH DO Ot 256.4 POLYCYSTIC OVARIES 10/30/2016 GRZEGORZ MCGRATH SPRING MAKER Ot E28.2 POLYCYSTIC OVARIAN SYNDROME 10/30/2016 GRZEGORZ MCGRATH SPRING MAKER Ot E55.9 VITAMIN D DEFICIENCY, UNSPECIFIED 10/30/2016 GRZEGORZ MCGRATH SPRING MAKER Ot L68.0 HIRSUTISM 10/30/2016 GRZEGORZ MCGRATH SPRING MAKER Ot 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 10/30/2016 BAILEY VALENCIA DO Ot R10.2 PELVIC AND PERINEAL PAIN 10/30/2016 BAILEY VALENCIA DO Ot Z01.812 ENCOUNTER FOR PREPROCEDURAL LABORATORY E 10/30/2016 BAILEY VALENCIA DO Ot Z11.2 ENCOUNTER FOR SCREENING FOR OTHER BACTER 03/10/2017 MAGGIE OTERO DO Ot R05 COUGH 03/10/2017 MAGGIE OTERO DO Ot R06.02 SHORTNESS OF BREATH 03/19/2017 Ot 240.9 GOIT ER NOS 03/19/2017 Ot 626.0 ABSE NCE OF MENSTRUATION 03/19/2017 AARTI CHRISTIANSEN MD Ot V22.1 SUPERVIS OTH NORMAL PREG 03/19/2017 AARTI CHRISTIANSEN MD Ot 648.83 ABN GLUCOSE-ANTEPARTUM 03/19/2017 GRZEGORZ MCGRATH SPRING MAKER Ot 724.6 DISORDERS OF SACRUM 03/19/2017 GRZEGORZ MCGRATH SPRING MAKER Ot 244.9 HYPOTHYROIDISM NOS 03/19/2017 GRZEGORZ MCGRATH SPRING MAKER Ot 256.4 POLYCYSTIC OVARIES 03/19/2017 GRZEGORZ MCGRATH SPRING MAKER Ot 266.2 B-COMPLEX DEFIC NEC 03/19/2017 GRZEGORZ MCGRATH SPRING MAKER Ot 268.9 VITAMIN D DEFICIENCY NOS 03/19/2017 GRZEGORZ MCGRATH SPRING MAKER Ot 275.2 DIS MAGNESIUM METABOLISM 03/19/2017 GRZEGORZ MCGRATH SPRING MAKER Ot V58.69 OTH MED,LT,CURRENT USE 03/19/2017 GRZEGORZ MCGRATH SPRING MAKER Ot 729.2 NEURALGIA/NEURITIS NOS 03/19/2017 GONZALES MCGRATH DO Ot 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 03/19/2017 GRZEGORZ MCGRATH SPRING MAKER Ot 244.9 HYPOTHYROIDISM NOS 03/19/2017 ZOFIA MCGRATHRICIA Hero SPRING MAKER Ot 246.8 DISORDERS OF THYROID NEC 03/19/2017 GRZEGORZ MCGRATH SPRING MAKER Ot 626.0 ABSENCE OF MENSTRUATION 03/19/2017 GRZEGORZ MCGRATH SPRING MAKER Ot 256.4 POLYCYSTIC OVARIES 03/19/2017 GRZGEORZ MCGRATH SPRING MAKER Ot 368.9 VISUAL DISTURBANCE NOS 03/19/2017 GRZEGORZ MCGRATH SPRING MAKER Ot 784.0 HEADACHE 03/19/2017 GONZALES MCGRATH DO Ot 256.4 POLYCYSTIC OVARIES 03/19/2017 GRZEGORZ MCGRATH SPRING MAKER Ot E28.2 POLYCYSTIC OVARIAN SYNDROME 03/19/2017 GRZEGORZ MCGRATH SPRING MAKER Ot E55.9 VITAMIN D DEFICIENCY, UNSPECIFIED 03/19/2017 GRZEGORZ MCGRATH SPRING MAKER Ot L68.0 HIRSUTISM 03/19/2017 GRZEGORZ MCGRATH SPRING MAKER Ot Z79.899 OTHER RETIREMENT (CURRENT) DRUG THERAPY 03/19/2017 BAILEY VALENCIA DO Ot R10.2 PELVIC AND PERINEAL PAIN 03/19/2017 BAILEY VALENCIA DO Ot Z01.812 ENCOUNTER FOR PREPROCEDURAL LABORATORY E 03/19/2017 BAILEY VALENCIA DO Ot Z11.2 ENCOUNTER FOR SCREENING FOR OTHER BACTER 03/19/2017 MAGGIE OTERO DO S Ot R05 COUGH 03/19/2017 MAGGIE OTERO DO S Ot R06.02 SHORTNESS OF BREATH 07/01/2017 MAGGIE OTERO DO S Ot R05 COUGH 07/01/2017 MAGGIE OTERO DO S Ot R06.02 SHORTNESS OF BREATH 07/01/2017 MAGGIE OTERO DO S Ot R05 COUGH 07/01/2017 MAGGIE OTERO DO S Ot R06.02 SHORTNESS OF BREATH 11/05/2017 GRZEGORZ MCGRATH SPRING MAKER Ot R10.2 PELVIC AND PERINEAL PAIN 11/18/2017 GRZEGORZ MCGRATH SPRING MAKER Ot R10.2 PELVIC AND PERINEAL PAIN 12/08/2017 Ot N94.10 UNS PECIFIED DYSPAREUNIA 12/08/2017 Ot R10.2 PELV IC AND PERINEAL PAIN 12/08/2017 Ot Z01.818 EN COUNTER FOR OTHER PREPROCEDURAL EXAMIN 12/09/2017 BAILEY VALENCIA DO Ot N80.3 ENDOMETRIOSIS OF PELVIC PERITONEUM 12/09/2017 BAILEY VALENCIA DO Ot N94.10 UNSPECIFIED DYSPAREUNIA 06/24/2018 AARTI CHRISTIANSEN MD Ot V22.1 SUPERVIS OTH NORMAL PREG 06/24/2018 AARTI CHRISTIANSEN MD Ot 648.83 ABN GLUCOSE-ANTEPARTUM 06/24/2018 GRZEGORZ MCGRATH SPRING MAKER Ot 724.6 DISORDERS OF SACRUM 06/24/2018 GRZEGORZ MCGRATH SPRING MAKER Ot 244.9 HYPOTHYROIDISM NOS 06/24/2018 GRZEGORZ MCGRATH SPRING MAKER Ot 256.4 POLYCYSTIC OVARIES 06/24/2018 GRZEGORZ MCGRATH L SPRING MAKER Ot 266.2 B-COMPLEX DEFIC NEC 06/24/2018 GRZEGORZ MCGRATH L SPRING MAKER Ot 268.9 VITAMIN D DEFICIENCY NOS 06/24/2018 GRZEGORZ MCGRATH SPRING MAKER Ot 275.2 DIS MAGNESIUM METABOLISM 06/24/2018 GRZEGORZ MCGRATH L SPRING MAKER Ot V58.69 OTH MED,LT,CURRENT USE 06/24/2018 GRZEOGRZ MCGRATH SPRING MAKER Ot 729.2 NEURALGIA/NEURITIS NOS 06/24/2018 GONZALES MCGRATH DO Ot 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 06/24/2018 GRZEGORZ MCGRATH SPRING MAKER Ot 244.9 HYPOTHYROIDISM NOS 06/24/2018 GRZEGORZ MCGRATH SPRING MAKER Ot 246.8 DISORDERS OF THYROID NEC 06/24/2018 GRZEGORZ MCGRATH SPRING MAKER Ot 626.0 ABSENCE OF MENSTRUATION 06/24/2018 GRZEGORZ MCGRATH L SPRING MAKER Ot 256.4 POLYCYSTIC OVARIES 06/24/2018 GRZEGORZ MCGRATH L SPRING MAKER Ot 368.9 VISUAL DISTURBANCE NOS 06/24/2018 GRZEGORZ MCGRATH SPRING MAKER Ot 784.0 HEADACHE 06/24/2018 GONZALES MCGRATH DO Ot 256.4 POLYCYSTIC OVARIES 06/24/2018 GRZEGORZ MCGRATH SPRING MAKER Ot E28.2 POLYCYSTIC OVARIAN SYNDROME 06/24/2018 GRZEGORZ MCGRATH SPRING MAKER Ot E55.9 VITAMIN D DEFICIENCY, UNSPECIFIED 06/24/2018 GRZEGORZ MCGRATH SPRING MAKER Ot L68.0 HIRSUTISM 06/24/2018 GRZEGORZ MCGRATH SPRING MAKER Ot Z79.899 OTHER RETIREMENT (CURRENT) DRUG THERAPY 06/24/2018 BAIELY VALENCIA DO Ot R10.2 PELVIC AND PERINEAL PAIN 06/24/2018 BAILEY VALENCIA DO Ot Z01.812 ENCOUNTER FOR PREPROCEDURAL LABORATORY E 06/24/2018 BAILEY VALENCIA DO Ot Z11.2 ENCOUNTER FOR SCREENING FOR OTHER BACTER 06/24/2018 MAGGIE OTERO DO S Ot R05 COUGH 06/24/2018 MAGGIE OTERO DO S Ot R06.02 SHORTNESS OF BREATH 06/24/2018 GRZEGORZ MCGRATH SPRING MAKER Ot R10.2 PELVIC AND PERINEAL PAIN 08/20/2018 AARTI CHRISTIANSEN MD Ot V22.1 SUPERVIS OTH NORMAL PREG 08/20/2018 AARTI CHRISTIANSEN MD Ot 648.83 ABN GLUCOSE-ANTEPARTUM 08/20/2018 GRZEGORZ MCGRATH SPRING MAKER Ot 724.6 DISORDERS OF SACRUM 08/20/2018 GRZEGORZ MCGRATH SPRING MAKER Ot 244.9 HYPOTHYROIDISM NOS 08/20/2018 GRZEGORZ MCGRATH SPRING MAKER Ot 256.4 POLYCYSTIC OVARIES 08/20/2018 GRZEGORZ MCGRATH SPRING MAKER Ot 266.2 B-COMPLEX DEFIC NEC 08/20/2018 GRZEGORZ MCGRATH SPRING MAKER Ot 268.9 VITAMIN D DEFICIENCY NOS 08/20/2018 GRZEGORZ MCGRATH SPRING MAKER Ot 275.2 DIS MAGNESIUM METABOLISM 08/20/2018 GRZEGORZ MCGRATH SPRING MAKER Ot V58.69 OTH MED,LT,CURRENT USE 08/20/2018 GRZEGORZ MCGRATH SPRING MAKER Ot 729.2 NEURALGIA/NEURITIS NOS 08/20/2018 MCGRATH DO, GONZALES J Ot 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 08/20/2018 GRZEGORZ MCGRATH SPRING MAKER Ot 244.9 HYPOTHYROIDISM NOS 08/20/2018 GRZEGORZ MCGRATH SPRING MAKER Ot 246.8 DISORDERS OF THYROID NEC 08/20/2018 GRZEGORZ MCGRATH SPRING MAKER Ot 626.0 ABSENCE OF MENSTRUATION 08/20/2018 GRZEGORZ MCGRATH SPRING MAKER Ot 256.4 POLYCYSTIC OVARIES 08/20/2018 GRZEGORZ MCGRATH SPRING MAKER Ot 368.9 VISUAL DISTURBANCE NOS 08/20/2018 GRZEGORZ MCGRATH SPRING MAKER Ot 784.0 HEADACHE 08/20/2018 GONZALES MCGRATH DO J Ot 256.4 POLYCYSTIC OVARIES 08/20/2018 GRZEGORZ MCGRATH SPRING MAKER Ot E28.2 POLYCYSTIC OVARIAN SYNDROME 08/20/2018 GRZEGORZ MCGRATH SPRING MAKER Ot E55.9 VITAMIN D DEFICIENCY, UNSPECIFIED 08/20/2018 GRZEGORZ MCGRATH SPRING MAKER Ot L68.0 HIRSUTISM 08/20/2018 GRZEGORZ MCGRATH SPRING MAKER Ot Z79.899 OTHER RETIREMENT (CURRENT) DRUG THERAPY 08/20/2018 BAILEY VALENCIA DO S Ot R10.2 PELVIC AND PERINEAL PAIN 08/20/2018 BAILEY VALENCIA DO Ot Z01.812 ENCOUNTER FOR PREPROCEDURAL LABORATORY E 08/20/2018 BAILEY VALENCIA DO Ot Z11.2 ENCOUNTER FOR SCREENING FOR OTHER BACTER 08/20/2018 MAGGIE OTERO DO S Ot R05 COUGH 08/20/2018 MAGGIE OTERO DO S Ot R06.02 SHORTNESS OF BREATH 08/20/2018 MCGRATHGRZEGORZ YANG SPRING MAKER Ot R10.2 PELVIC AND PERINEAL PAIN 09/21/2018 BAILEY VALENCIA DO S Ot N93.8 OTHER SPECIFIED ABNORMAL UTERINE AND VAG 09/21/2018 BAILEY VALENCIA DO Ot N94.19 OTHER SPECIFIED DYSPAREUNIA 09/26/2018 BAILEY VALENCIA DO Ot N93.8 OTHER SPECIFIED ABNORMAL UTERINE AND VAG 09/26/2018 BAILEY VALENCIA DO S Ot N94.19 OTHER SPECIFIED DYSPAREUNIA 10/06/2018 BAILEY VALENCIA DO Ot N93.8 OTHER SPECIFIED ABNORMAL UTERINE AND VAG 10/06/2018 FENECH DO, BAILEY Mcdonald Ot N94.19 OTHER SPECIFIED DYSPAREUNIA 10/12/2018 FENECH DO, BAILEY Mcdonald Ot N81.10 CYSTOCELE, UNSPECIFIED 10/12/2018 FENECH DO, BAILEY Mcdonald Ot R10.2 PELVIC AND PERINEAL PAIN 10/12/2018 FENECH DO, BAILEY Mcdonald Ot Z01.812 ENCOUNTER FOR PREPROCEDURAL LABORATORY E 10/12/2018 FENECH DO, BAILEY Mcdonald Ot Z11.2 ENCOUNTER FOR SCREENING FOR OTHER BACTER 10/17/2018 FENECH DO, BAILEY Mcdonald Ot N81.10 CYSTOCELE, UNSPECIFIED 10/17/2018 FENECH DO, BAILEY Mcdonald Ot R10.2 PELVIC AND PERINEAL PAIN 10/17/2018 FENECH DO, BAILEY Mcdonald Ot Z01.812 ENCOUNTER FOR PREPROCEDURAL LABORATORY E 10/17/2018 FENECH DO, BAILEY Mcdonald Ot Z11.2 ENCOUNTER FOR SCREENING FOR OTHER BACTER 10/21/2018 DOMINGOECH DOBAILEY Ot E03.9 HYPOTHYROIDISM, UNSPECIFIED 10/21/2018 FENECH DO, BAILEY Mcdonald Ot F32.9 MAJOR DEPRESSIVE DISORDER, SINGLE EPISOD 10/21/2018 FENECH DO, BAILEY Mcdonald Ot I95.9 HYPOTENSION, UNSPECIFIED 10/21/2018 FENECH DO, BAILEY S Ot K21.9 GASTRO-ESOPHAGEAL REFLUX DISEASE WITHOUT 10/21/2018 FENECH DOBAILEY Ot N7 2 INFLAMMATORY DISEASE OF CERVIX UTERI 10/21/2018 FENECH DO, BAILEY Mcdonald Ot N80.0 ENDOMETRIOSIS OF UTERUS 10/21/2018 FENECH DO, BAILEY Mcdonald Ot N81.2 INCOMPLETE UTEROVAGINAL PROLAPSE 10/21/2018 FENECH DO, BAILEY Mcdonald Ot N88.8 OTHER SPECIFIED NONINFLAMMATORY DISORDER 10/21/2018 FENECH DO, BAILEY Mcdonald Ot R10.2 PELVIC AND PERINEAL PAIN 10/21/2018 FENECH DO, BAILEY Mcdonald Ot Z79.899 OTHER RETIREMENT (CURRENT) DRUG THERAPY 10/26/2018 DOMINGOECH DOBAILEY Ot E03.9 HYPOTHYROIDISM, UNSPECIFIED 10/26/2018 FENECH DO, BAILEY Mcdonald Ot F32.9 MAJOR DEPRESSIVE DISORDER, SINGLE EPISOD 10/26/2018 FENECH DO, BAILEY S Ot I95.9 HYPOTENSION, UNSPECIFIED 10/26/2018 FENECH DO, BAILEY Mcdonald Ot K21.9 GASTRO-ESOPHAGEAL REFLUX DISEASE WITHOUT 10/26/2018 FENECH DO, BAILEY S Ot N7 2 INFLAMMATORY DISEASE OF CERVIX UTERI 10/26/2018 FENECH DO, BAILEY S Ot N80.0 ENDOMETRIOSIS OF UTERUS 10/26/2018 FENECH DO, BAILEY S Ot N81.2 INCOMPLETE UTEROVAGINAL PROLAPSE 10/26/2018 FENECH DO, BAILEY S Ot N88.8 OTHER SPECIFIED NONINFLAMMATORY DISORDER 10/26/2018 FENECH DO, BAILEY S Ot 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 10/27/2018 FENECH DO, BAILEY S Ot E03.9 HYPOTHYROIDISM, UNSPECIFIED 10/27/2018 FENECH DO, BAILEY S Ot F32.9 MAJOR DEPRESSIVE DISORDER, SINGLE EPISOD 10/27/2018 FENECH DO, BAILEY S Ot I95.9 HYPOTENSION, UNSPECIFIED 10/27/2018 FENECH DO, BAILEY S Ot K21.9 GASTRO-ESOPHAGEAL REFLUX DISEASE WITHOUT 10/27/2018 FENECH DO, BAILEY S Ot N7 2 INFLAMMATORY DISEASE OF CERVIX UTERI 10/27/2018 FENECH DO, BAILEY S Ot N80.0 ENDOMETRIOSIS OF UTERUS 10/27/2018 FENECH DO, BAILEY S Ot N81.2 INCOMPLETE UTEROVAGINAL PROLAPSE 10/27/2018 FENECH DO, BAILEY S Ot N88.8 OTHER SPECIFIED NONINFLAMMATORY DISORDER 10/27/2018 FENECH DO, BAILEY S Ot 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 10/28/2018 FENECH DO, BAILEY S Ot E03.9 HYPOTHYROIDISM, UNSPECIFIED 10/28/2018 FENECH DO, BAILEY S Ot F32.9 MAJOR DEPRESSIVE DISORDER, SINGLE EPISOD 10/28/2018 FENECH DO, BAILEY S Ot I95.9 HYPOTENSION, UNSPECIFIED 10/28/2018 FENECH DO, BAILEY S Ot K21.9 GASTRO-ESOPHAGEAL REFLUX DISEASE WITHOUT 10/28/2018 FENECH DO, BAILEY S Ot N7 2 INFLAMMATORY DISEASE OF CERVIX UTERI 10/28/2018 FENECH DO, BAILEY S Ot N80.0 ENDOMETRIOSIS OF UTERUS 10/28/2018 FENECH DO, BAILEY S Ot N81.2 INCOMPLETE UTEROVAGINAL PROLAPSE 10/28/2018 FENECH DO, BAILEY S Ot N88.8 OTHER SPECIFIED NONINFLAMMATORY DISORDER 10/28/2018 FENECH DO, BAILEY S Ot Z79.899 OTHER RETIREMENT (CURRENT) DRUG THERAPY 12/01/2018 AARTI CHRISTIANSEN MD Ot V22.1 SUPERVIS OTH NORMAL PREG 12/01/2018 AARTI CHRISTIANSEN MD Ot 648.83 ABN GLUCOSE-ANTEPARTUM 12/01/2018 GRZEGORZ MCGRATH SPRING MAKER Ot 724.6 DISORDERS OF SACRUM 12/01/2018 GRZEGORZ MCGRATH SPRING MAKER Ot 244.9 HYPOTHYROIDISM NOS 12/01/2018 GRZEGORZ MCGRATH SPRING MAKER Ot 256.4 POLYCYSTIC OVARIES 12/01/2018 GRZEGORZ MCGRATH [employer] MAKER Ot 266.2 B-COMPLEX DEFIC NEC 12/01/2018 GRZEGORZ MCGRATH SPRING MAKER Ot 268.9 VITAMIN D DEFICIENCY NOS 12/01/2018 GRZEGORZ MCGRATH SPRING MAKER Ot 275.2 DIS MAGNESIUM METABOLISM 12/01/2018 GRZEGORZ MCGRATH SPRING MAKER Ot V58.69 OTH MED,LT,CURRENT USE 12/01/2018 GRZEGORZ MCGRATH SPRING MAKER Ot 729.2 NEURALGIA/NEURITIS NOS 12/01/2018 GONZALES MCGRATH DO Ot 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 12/01/2018 GRZEGORZ MCGRATH SPRING MAKER Ot 244.9 HYPOTHYROIDISM NOS 12/01/2018 GRZEGORZ MCGRATH SPRING MAKER Ot 246.8 DISORDERS OF THYROID NEC 12/01/2018 GRZEGORZ MCGRATH SPRING MAKER Ot 626.0 ABSENCE OF MENSTRUATION 12/01/2018 GRZEGORZ MCGRATH SPRING MAKER Ot 256.4 POLYCYSTIC OVARIES 12/01/2018 GRZEGORZ MCGRATH SPRING MAKER Ot 368.9 VISUAL DISTURBANCE NOS 12/01/2018 GRZEGORZ [employer]GRATH [employer] MAKER Ot 784.0 HEADACHE 12/01/2018 GONZALES MCGRATH DO Ot 256.4 POLYCYSTIC OVARIES 12/01/2018 GRZEGORZ MCGRATH SPRING MAKER Ot E28.2 POLYCYSTIC OVARIAN SYNDROME 12/01/2018 GRZEGORZ MCGRATH SPRING MAKER Ot E55.9 VITAMIN D DEFICIENCY, UNSPECIFIED 12/01/2018 GRZEGORZ MCGRATH SPRING MAKER Ot L68.0 HIRSUTISM 12/01/2018 GRZEGORZ MCGRATH SPRING MAKER Ot Z79.899 OTHER RETIREMENT (CURRENT) DRUG THERAPY 12/01/2018 BAILEY VALENCIA DO Ot R10.2 PELVIC AND PERINEAL PAIN 12/01/2018 BAILEY VALENCIA DO Ot Z01.812 ENCOUNTER FOR PREPROCEDURAL LABORATORY E 12/01/2018 BAILEY VALENCIA DO Ot Z11.2 ENCOUNTER FOR SCREENING FOR OTHER BACTER 12/01/2018 MAGGIE OTERO DO Ot R05 COUGH 12/01/2018 MAGGIE OTERO DO Ot R06.02 SHORTNESS OF BREATH 12/01/2018 GRZEGORZ MCGRATH [employer]ING MAKER Ot R10.2 PELVIC AND PERINEAL PAIN 12/01/2018 BAILEY VALENCIA DO Ot N93.8 OTHER SPECIFIED ABNORMAL UTERINE AND VAG 12/01/2018 BAILEY VALENCIA DO Ot N94.19 OTHER SPECIFIED DYSPAREUNIA 04/05/2019 GRZEGORZ MCGRATH SPRING MAKER Ot E28.2 POLYCYSTIC OVARIAN SYNDROME 04/05/2019 GRZEGORZ MCGRATH SPRING MAKER Ot N80.9 ENDOMETRIOSIS, UNSPECIFIED 04/05/2019 GRZEGORZ MCGRATH SPRING MAKER Ot Z90.710 ACQUIRED ABSENCE OF BOTH CERVIX AND UTER 04/09/2019 GRZEGORZ MCGRATH SPRING MAKER Ot E28.2 POLYCYSTIC OVARIAN SYNDROME 04/09/2019 GRZEGORZ MCGRATH [employer] Ot N80.9 ENDOMETRIOSIS, UNSPECIFIED 04/09/2019 GRZEGORZ MCGRATH [employer] Ot Z90.710 ACQUIRED ABSENCE OF BOTH CERVIX AND UTER 04/19/2019 GRZEGORZ MCGRATH [employer] Ot E28.2 POLYCYSTIC OVARIAN SYNDROME 04/19/2019 GRZEGORZ MCGRATH [employer] Ot N80.9 ENDOMETRIOSIS, UNSPECIFIED 04/19/2019 GRZEGORZ MCGRATH [employer] Ot Z90.710 ACQUIRED ABSENCE OF BOTH CERVIX AND UTER Procedures Code Description Performed By Per formed On [id number] EX TRACTION OF POC, LOW CERVICAL, OPEN AP 08/20/2016 Results Test Result Range Complete blood count (CBC) with automate d white blood cell (WBC) differential - 05/16/16 17:20 Blood leukocytes automated count (number/volume) 11.0 10*3/uL 4.3-11.0 Blood erythrocytes automated count (number/volume) 4.54 10*6/uL 4.35-5.85 Venous blood hemoglobin measurement (mass/volume) 13.5 g/dL 11.5-16.0 Blood hematocrit (volume fraction) 40 % 35-52 Automated erythrocyte mean corpuscular volume 87 [ foz_us] 80-99 Automated erythrocyte mean corpuscular h emoglobin (mass per erythrocyte) 30 pg 25-34 Automated erythrocyte mean corpuscular h emoglobin concentration measurement (mass/volume) 34 g/dL 32-36 Automated erythrocyte distribution width ratio 14. 1 % 10.0- 14.5 Automated blood platelet count (count/volume) 241 10*3/uL 130-400 Automated blood platelet mean volume measurement 9.3 [foz_us] 7.4-10.4 Automated blood neutrophils/100 leukocytes 79 % 42-75 Automated blood lymphocytes/100 leukocytes 16 % 12-44 Blood monocytes/100 leukocytes 5 % 0-12 Automated blood eosinophils/100 leukocytes 0 % 0-10 Automated blood basophils/100 leukocytes 0 % 0-10 Blood neutrophils automated count (number/volume) 8.7 10*3 1.8-7.8 Blood lymphocytes automated count (number/volume) 1.7 10*3 1.0-4.0 Blood monocytes automated count (number/volume) 0. 5 10*3 0.0-1.0 Automated eosinophil count 0.0 10*3/uL 0 .0-0.3 Automated blood basophil count (count/volume) 0.0 10*3/uL 0.0-0.1 Comprehensive metabolic panel - 05/16/16 17:20 Serum or plasma sodium measurement (moles/volume) 140 mmol/L 135-145 Serum or plasma potassium measurement (moles/volume) 3.5 mmol/L 3.6-5.0 Serum or plasma chloride measurement (moles/volume) 111 mmol/L 98-107 Carbon dioxide 18 mmol/L 21-32 Serum or plasma anion gap determination (moles/volume) 11 mmol/L 5-14 Serum or plasma urea nitrogen measurement (mass/volume ) 7 mg/dL 7-18 Serum or plasma creatinine measurement (mass/volume) 0.60 mg/dL 0.60-1.30 Serum or plasma urea nitrogen/creatinine mass ratio 12 NRG Serum or plasma creatinine measurement w ith calculation of estimated glomerular filtration rate > NRG Serum or plasma glucose measurement (mass/volume) 92 mg/dL 70-105 Serum or plasma calcium measurement (mass/volume) 8.6 mg/dL 8.5-10.1 Serum or plasma total bilirubin measurement (mass/volu me) 0.2 mg/dL 0.1-1.0 Serum or plasma alkaline phosphatase honorio surement (enzymatic activity/volume) 68 U/L 40-136 Serum or plasma aspartate aminotransfera se measurement (enzymatic activity/volume) 13 U/L 5-34 Serum or plasma alanine aminotransferase measurement (enzymatic activity/volume) 15 U/L 0-55 Serum or plasma protein measurement (mass/volume) 6.1 g/dL 6.4-8.2 Serum or plasma albumin measurement (mass/volume) 3.5 g/dL 3.2-4.5 Serum or plasma amylase measurement (enz ymatic activity/volume) - 05/16/16 17:20 Serum or plasma amylase measurement (enzymatic activit y/volume) 86 U/L 25-125 Lipase - 05/16/16 17:20 Lipase 35 U/L 8-78 Complete urinalysis with reflex to cultu re - 05/18/16 18:40 Urine color determination YELLOW NRG Urine clarity determination SLIGHTLY CLOUDY NRG Urine pH measurement by test strip 6 5-9 Specific gravity of urine by test strip 1.025 1.016-1.022 Urine protein assay by test strip, semi-quantitative NEGATIVE NEGATIVE Urine glucose detection by automated test strip NE GATIVE NEGATIVE Erythrocytes detection in urine sediment by light micr oscopy NEGATIVE NEGATIVE Urine ketones detection by automated test strip NE GATIVE NEGATIVE Urine nitrite detection by test strip NEGATIVE NEGATIVE Urine total bilirubin detection by test strip NEGA TIVE NEGATIVE Urine urobilinogen measurement by automated test strip (mass/volume) 1 mg/dL NORMAL Urine leukocyte esterase detection by dipstick 1+ NEGATIVE Automated urine sediment erythrocyte cou nt by microscopy (number/high power field) NONE NRG Automated urine sediment leukocyte count by microscopy (number/high power field) [HPF] NRG Bacteria detection in urine sediment by light microsco py MODERATE NRG Squamous epithelial cells detection in u rine sediment by light microscopy 2-5 NRG Crystals detection in urine sediment by light microsco py PRESENT NRG Casts detection in urine sediment by light microscopy NONE NRG Mucus detection in urine sediment by light microscopy NEGATIVE NRG Complete urinalysis with reflex to culture NO NRG Calcium oxalate crystals detection in ur ine sediment by light microscopy FEW [facility] Bacterial urine culture - 05/18/16 18:40 URINE CULTURE RESULTS >100,000/ML [facility] Complete blood count (CBC) with automate d white blood cell (WBC) differential - 05/18/16 19:35 Blood leukocytes automated count (number/volume) 7.7 10*3/uL 4.3-11.0 Blood erythrocytes automated count (number/volume) 4.15 10*6/uL 4.35-5.85 Venous blood hemoglobin measurement (mass/volume) 12.4 g/dL 11.5-16.0 Blood hematocrit (volume fraction) 36 % 35-52 Automated erythrocyte mean corpuscular volume 88 [ foz_us] 80-99 Automated erythrocyte mean corpuscular h emoglobin (mass per erythrocyte) 30 pg 25-34 Automated erythrocyte mean corpuscular h emoglobin concentration measurement (mass/volume) 34 g/dL 32-36 Automated erythrocyte distribution width ratio 14. 1 % 10.0- 14.5 Automated blood platelet count (count/volume) 225 10*3/uL 130-400 Automated blood platelet mean volume measurement 9.6 [foz_us] 7.4-10.4 Automated blood neutrophils/100 leukocytes 64 % 42-75 Automated blood lymphocytes/100 leukocytes 27 % 12-44 Blood monocytes/100 leukocytes 9 % 0-12 Automated blood eosinophils/100 leukocytes 1 % 0-10 Automated blood basophils/100 leukocytes 0 % 0-10 Blood neutrophils automated count (number/volume) 4.9 10*3 1.8-7.8 Blood lymphocytes automated count (number/volume) 2.1 10*3 1.0-4.0 Blood monocytes automated count (number/volume) 0. 7 10*3 0.0-1.0 Automated eosinophil count 0.1 10*3/uL 0 .0-0.3 Automated blood basophil count (count/volume) 0.0 10*3/uL 0.0-0.1 Comprehensive metabolic panel - 05/18/16 19:35 Serum or plasma sodium measurement (moles/volume) 137 mmol/L 135-145 Serum or plasma potassium measurement (moles/volume) 3.4 mmol/L 3.6-5.0 Serum or plasma chloride measurement (moles/volume) 109 mmol/L 98-107 Carbon dioxide 19 mmol/L 21-32 Serum or plasma anion gap determination (moles/volume) 9 mmol/L 5-14 Serum or plasma urea nitrogen measurement (mass/volume ) 10 mg/dL 7-18 Serum or plasma creatinine measurement (mass/volume) 0.61 mg/dL 0.60-1.30 Serum or plasma urea nitrogen/creatinine mass ratio 16 NRG Serum or plasma creatinine measurement w ith calculation of estimated glomerular filtration rate > NRG Serum or plasma glucose measurement (mass/volume) 91 mg/dL 70-105 Serum or plasma calcium measurement (mass/volume) 8.6 mg/dL 8.5-10.1 Serum or plasma total bilirubin measurement (mass/volu me) 0.2 mg/dL 0.1-1.0 Serum or plasma alkaline phosphatase honorio surement (enzymatic activity/volume) 67 U/L 40-136 Serum or plasma aspartate aminotransfera se measurement (enzymatic activity/volume) 15 U/L 5-34 Serum or plasma alanine aminotransferase measurement (enzymatic activity/volume) 23 U/L 0-55 Serum or plasma protein measurement (mass/volume) 5.6 g/dL 6.4-8.2 Serum or plasma albumin measurement (mass/volume) 3.2 g/dL 3.2-4.5 Methicillin resistant Staphylococcus aur eus (MRSA) screening culture - 08/13/16 12:33 Methicillin resistant Staphylococcus aureus (MRSA) scr eening culture NEG NRG Complete blood count (CBC) with automate d white blood cell (WBC) differential - 08/20/16 06:15 Blood leukocytes automated count (number/volume) 10.5 10*3/uL 4.3-11.0 Blood erythrocytes automated count (number/volume) 4.86 10*6/uL 4.35-5.85 Venous blood hemoglobin measurement (mass/volume) 14.0 g/dL 11.5-16.0 Blood hematocrit (volume fraction) 43 % 35-52 Automated erythrocyte mean corpuscular volume 87 [ foz_us] 80-99 Automated erythrocyte mean corpuscular h emoglobin (mass per erythrocyte) 29 pg 25-34 Automated erythrocyte mean corpuscular h emoglobin concentration measurement (mass/volume) 33 g/dL 32-36 Automated erythrocyte distribution width ratio 15. 6 % 10.0- 14.5 Automated blood platelet count (count/volume) 270 10*3/uL 130-400 Automated blood platelet mean volume measurement 10.0 [foz_us] 7.4-10.4 Automated blood neutrophils/100 leukocytes 65 % 42-75 Automated blood lymphocytes/100 leukocytes 25 % 12-44 Blood monocytes/100 leukocytes 9 % 0-12 Automated blood eosinophils/100 leukocytes 1 % 0-10 Automated blood basophils/100 leukocytes 0 % 0-10 Blood neutrophils automated count (number/volume) 6.9 10*3 1.8-7.8 Blood lymphocytes automated count (number/volume) 2.6 10*3 1.0-4.0 Blood monocytes automated count (number/volume) 0. 9 10*3 0.0-1.0 Automated eosinophil count 0.1 10*3/uL 0 .0-0.3 Automated blood basophil count (count/volume) 0.0 10*3/uL 0.0-0.1 Complete urinalysis with reflex to cultu re - 08/20/16 06:30 Urine color determination YELLOW NRG Urine clarity determination CLEAR NR G Urine pH measurement by test strip 6 5-9 Specific gravity of urine by test strip 1.025 1.016-1.022 Urine protein assay by test strip, semi-quantitative 1+ NEGATIVE Urine glucose detection by automated test strip NE GATIVE NEGATIVE Erythrocytes detection in urine sediment by light micr oscopy NEGATIVE NEGATIVE Urine ketones detection by automated test strip NE GATIVE NEGATIVE Urine nitrite detection by test strip NEGATIVE NEGATIVE Urine total bilirubin detection by test strip NEGA TIVE NEGATIVE Urine urobilinogen measurement by automated test strip (mass/volume) NORMAL NORMAL Urine leukocyte esterase detection by dipstick 1+ NEGATIVE Automated urine sediment erythrocyte cou nt by microscopy (number/high power field) NONE NRG Automated urine sediment leukocyte count by microscopy (number/high power field) [HPF] NRG Bacteria detection in urine sediment by light microsco py FEW NRG Squamous epithelial cells detection in u rine sediment by light microscopy 5-10 NRG Crystals detection in urine sediment by light microsco py NONE NRG Casts detection in urine sediment by light microscopy NONE NRG Mucus detection in urine sediment by light microscopy SMALL NRG Complete urinalysis with reflex to culture YES NRG Bacterial urine culture - 08/20/16 06:30 Bacterial urine culture [id number] NRG COLONY COUNT >100,000/ML NRG FTX;REPORTABLE REPORTED TO Hero Hearn RN 08/21/16 BY Harry RG NRG URINE CULTURE RESULTS PLUS NRG Blood type T Indirect antibody screen pa bonifacio - 08/20/16 06:50 ABO+Rh group OP NRG Transfusion band number [id number] NRG Blood group antibody screen NEGATIVE NR G Complete blood count (CBC) with automate d white blood cell (WBC) differential - 08/21/16 06:11 Blood leukocytes automated count (number/volume) 10.8 10*3/uL 4.3-11.0 Blood erythrocytes automated count (number/volume) 3.66 10*6/uL 4.35-5.85 Venous blood hemoglobin measurement (mass/volume) 10.4 g/dL 11.5-16.0 Blood hematocrit (volume fraction) 33 % 35-52 Automated erythrocyte mean corpuscular volume 89 [ foz_us] 80-99 Automated erythrocyte mean corpuscular h emoglobin (mass per erythrocyte) 28 pg 25-34 Automated erythrocyte mean corpuscular h emoglobin concentration measurement (mass/volume) 32 g/dL 32-36 Automated erythrocyte distribution width ratio 15. 5 % 10.0- 14.5 Automated blood platelet count (count/volume) 231 10*3/uL 130-400 Automated blood platelet mean volume measurement 10.0 [foz_us] 7.4-10.4 Automated blood neutrophils/100 leukocytes 63 % 42-75 Automated blood lymphocytes/100 leukocytes 29 % 12-44 Blood monocytes/100 leukocytes 7 % 0-12 Automated blood eosinophils/100 leukocytes 1 % 0-10 Automated blood basophils/100 leukocytes 0 % 0-10 Blood neutrophils automated count (number/volume) 6.8 10*3 1.8-7.8 Blood lymphocytes automated count (number/volume) 3.2 10*3 1.0-4.0 Blood monocytes automated count (number/volume) 0. 7 10*3 0.0-1.0 Automated eosinophil count 0.1 10*3/uL 0 .0-0.3 Automated blood basophil count (count/volume) 0.0 10*3/uL 0.0-0.1 Urine beta human chorionic gonadotropin (hCG) measurement - 12/09/17 08:35 Urine beta human chorionic gonadotropin (hCG) measurem ent NEGATIVE NEGATIVE Complete blood count (CBC) with automate d white blood cell (WBC) differential - 12/09/17 08:37 Blood leukocytes automated count (number/volume) 6.6 10*3/uL 4.3-11.0 Blood erythrocytes automated count (number/volume) 4.87 10*6/uL 4.35-5.85 Venous blood hemoglobin measurement (mass/volume) 14.0 g/dL 11.5-16.0 Blood hematocrit (volume fraction) 41 % 35-52 Automated erythrocyte mean corpuscular volume 84 [ foz_us] 80-99 Automated erythrocyte mean corpuscular h emoglobin (mass per erythrocyte) 29 pg 25-34 Automated erythrocyte mean corpuscular h emoglobin concentration measurement (mass/volume) 34 g/dL 32-36 Automated erythrocyte distribution width ratio 13. 5 % 10.0- 14.5 Automated blood platelet count (count/volume) 332 10*3/uL 130-400 Automated blood platelet mean volume measurement 9.7 [foz_us] 7.4-10.4 Automated blood neutrophils/100 leukocytes 55 % 42-75 Automated blood lymphocytes/100 leukocytes 39 % 12-44 Blood monocytes/100 leukocytes 6 % 0-12 Automated blood eosinophils/100 leukocytes 1 % 0-10 Automated blood basophils/100 leukocytes 0 % 0-10 Blood neutrophils automated count (number/volume) 3.6 10*3 1.8-7.8 Blood lymphocytes automated count (number/volume) 2.5 10*3 1.0-4.0 Blood monocytes automated count (number/volume) 0. 4 10*3 0.0-1.0 Automated eosinophil count 0.1 10*3/uL 0 .0-0.3 Automated blood basophil count (count/volume) 0.0 10*3/uL 0.0-0.1 Blood type T Indirect antibody screen pa bonifacio - 12/09/17 08:37 ABO+Rh group OP NRG Transfusion band number [id number] NRG Blood group antibody screen NEGATIVE NR G Methicillin resistant Staphylococcus aur eus (MRSA) screening culture - 12/09/17 08:40 Methicillin resistant Staphylococcus aureus (MRSA) scr eening culture NEG NRG Complete blood count (CBC) with automate d white blood cell (WBC) differential - 10/12/18 14:20 Blood leukocytes automated count (number/volume) 7.5 10*3/uL 4.3-11.0 Blood erythrocytes automated count (number/volume) 5.00 10*6/uL 4.35-5.85 Venous blood hemoglobin measurement (mass/volume) 14.4 g/dL 11.5-16.0 Blood hematocrit (volume fraction) 42 % 35-52 Automated erythrocyte mean corpuscular volume 85 [ foz_us] 80-99 Automated erythrocyte mean corpuscular h emoglobin (mass per erythrocyte) 29 pg 25-34 Automated erythrocyte mean corpuscular h emoglobin concentration measurement (mass/volume) 34 g/dL 32-36 Automated erythrocyte distribution width ratio 13. 5 % 10.0- 14.5 Automated blood platelet count (count/volume) 327 10*3/uL 130-400 Automated blood platelet mean volume measurement 10.0 [foz_us] 7.4-10.4 Automated blood neutrophils/100 leukocytes 61 % 42-75 Automated blood lymphocytes/100 leukocytes 33 % 12-44 Blood monocytes/100 leukocytes 6 % 0-12 Automated blood eosinophils/100 leukocytes 0 % 0-10 Automated blood basophils/100 leukocytes 0 % 0-10 Blood neutrophils automated count (number/volume) 4.6 10*3 1.8-7.8 Blood lymphocytes automated count (number/volume) 2.5 10*3 1.0-4.0 Blood monocytes automated count (number/volume) 0. 4 10*3 0.0-1.0 Automated eosinophil count 0.0 10*3/uL 0 .0-0.3 Automated blood basophil count (count/volume) 0.0 10*3/uL 0.0-0.1 Blood type T Indirect antibody screen pa bonifacio - 10/12/18 14:20 ABO+Rh group OP NRG Blood group antibody screen NEGATIVE NR G Methicillin resistant Staphylococcus aur eus (MRSA) screening culture - 10/12/18 14:20 Methicillin resistant Staphylococcus aureus (MRSA) scr eening culture NEG NRG Blood type T Indirect antibody screen pa bonifacio - 10/20/18 10:45 WRISTBAND NUMBER [id number] NRG ABO+Rh group OP NRG Blood group antibody screen NEGATIVE NR G Encounters ACCT No. Visit Date/Time Discharge Status Pt. Type Provider Facility Loc./Unit Complaint 05/201603/10/2019 07:53:49 03/10/2019 23:59 :59 [facility] Outpatient Maggie Otero [id number] 05/09/2013 00:00:00 05/09/2013 23:59: 59 CLS Outpatient WHITE CHELITA COLBY [id number] 09/03/2011 08:39:00 09/03/2011 23:59:5 9 CLS Outpatient [id number] 04/03/2019 14:44:00 23:59:59 CLS Outpatient GRZEGORZ MCGRATH [employer] [facility] RAD POLYCYSTIC OVAR Y SYNDROME [id number] 10/20/2018 09:58:00 019 10:31:00 DIS Outpatient DOMINGOBAILEY FISHER DO [facility] CHRONIC PELVIC PAIN [id number] 10/12/2018 13:44:00 14:25:00 DIS Outpatient DOMINGOBAILEY FISHER DO [facility] PREOP CHRONIC PELVIC PAIN [id number] 09/20/2018 09:49:00 23:59:59 CLS Outpatient DOMINGOBAILEY FISHER DO [facility] RAD AUB [id number] 12/09/2017 10:00:00 018 23:59:59 CLS Outpatient ANNIE BAILEY MULLER [facility] AUB,PELVIC PAIN [id number] 11/04/2017 12:27:00 018 23:59:59 CLS Outpatient GRZEGORZ MCGRATH [facility] RAD PELVIC PAIN,PCO S [id number] 02/22/2017 10:55:00 017 23:59:59 CLS Outpatient JORGENDER MAGGIE MULLER S [facility] RAD CONTINUE COUGH/ SOA [id number] 08/20/2016 06:02:00 017 17:55:00 DIS Inpatient BAILEY VALENCIA DO [facility] LDRP HX OF COCCYX DISLOCATIO N [id number] 08/13/2016 11:58:00 017 12:38:00 DIS Outpatient BAILEY VALENCIA DO [facility] PREOP HX OF COCCYX DISLOCATI ON [id number] 07/13/2016 08:51:00 017 11:00:00 DIS Outpatient BAILEY VALENCIA DO [facility] NO MOVEMENT [id number] 05/18/2016 18:40:00 017 22:07:00 DIS Outpatient ANGELES MALAGON MD [facility] MIGRAINES/NAUSE A [id number] 05/16/2016 16:21:00 017 19:00:00 DIS Outpatient ABDELRAHMAN CAPUTO MD [facility] VOMITING/CONTRACTIONS/M IGRAINE [id number] 04/26/2015 06:20:00 015 10:30:00 DIS Outpatient BAILEY VALENCIA DO [facility] CHRONIC PELVIC PAIN [id number] 04/22/2015 14:04:00 015 23:59:59 CLS Outpatient BAILEY VALENCIA DO [facility] PREOP CHRONIC PELVIC PAIN [id number] 03/20/2015 07:19:00 015 23:59:59 CLS Outpatient GRZEGORZ MCGRATH [facility] LAB PCOS,MED @ RISK ,VIT D DIF,EXCESSIVE HAIR [id number] 12/19/2014 15:13:00 015 23:59:59 CLS Outpatient GONZALES MCGRATH DO [facility] RAD PCOS PELVIC GABBIE N [id number] 05/07/2014 15:51:00 014 23:59:59 CLS Outpatient GRZEGORZ MCGRATH [facility] RAD SEVERE CAMPO VISIO N CHANGING PCOS [id number] 02/14/2014 16:54:00 014 23:59:59 CLS Outpatient GRZEGORZ MCGRATH [facility] LAB MISSED MENSES [id number] 12/22/2013 08:05:00 014 23:59:59 CLS Outpatient GONZALES MCGRATH DO [facility] LOW CORTISOL, [id number] 12/19/2013 14:49:00 23:59:59 CLS Outpatient ALCIDES GRZEGORZ L [employer] [facility] RAD SEVERE SACRAL P AIN [id number] 12/09/2013 11:12:00 23:59:59 CLS Outpatient MCGRATH, GRZEGORZ L [employer] [facility] LAB PCOS,HYPOTHYROI D [id number] 11/30/2013 15:42:00 23:59:59 CLS Outpatient TRINY MCGRATHIA Hero [employer] [facility] RAD HX OF FX COCCYX [id number] 06/24/2013 08:09:00 23:59:59 CLS Outpatient AARTI CHRISTIANSEN MD [facility] LAB ABNORMAL GLUCOSE TOLERA NCE [id number] 06/13/2013 13:33:00 23:59:59 CLS Outpatient AARTI CHRISTIANSEN MD [facility] LAB GLUCOSE,GESTATIONAL SCR EEN [id number] 04/11/2013 17:26:00 23:59:59 CLS Outpatient [id number] 12/08/2017 05:33:00 Document Registration [id number] 01/06/2012 14:03:00 Document Registration [id number] 12/29/2011 15:56:00 Document Registration [id number] 02/09/2011 15:48:00 Document Registration [id number] 01/02/2011 06:55:00 Document Registration [id number] 11/03/2010 15:25:00 Document Registration [id number] 10/24/2010 14:50:00 Document Registration [id number] 11/22/2009 10:22:00 Document Registration [id number] 11/11/2009 20:58:00 Document Registration [id number] 11/08/2009 07:08:00 Document Registration [id number] 11/04/2009 11:06:00 Document Registration
[2019-08-18] MEDS ORDERED: SEMA3TAB (22:24)
[2019-08-18] MEDS ORDERED: LEVO75TA6 (22:24)
[2019-08-18] MEDS ORDERED: FREM225S (22:24)
[2019-08-18] MEDS ORDERED: OXYC-471 (22:24)
[2019-08-18] MEDS ORDERED: ALPR0.254 (22:24)
[2019-08-18 22:30] LABS: BASOPHILS % (AUTO) 0 % (0-10); EOSINOPHILS # (AUTO) 0.2 10^3/uL (0.0-0.3); EOSINOPHILS % (AUTO) 3 % (0-10); HEMATOCRIT 37 % (35-52); HEMOGLOBIN 12.6 G/DL (11.5-16.0); LYMPHOCYTES # (AUTO) 1.9 X 10^3 (1.0-4.0); LYMPHOCYTES % (AUTO) 23 % (12-44); MEAN CORPUSCULAR HEMOGLOBIN 30 PG (25-34); MEAN CORPUSCULAR HGB CONC 35 G/DL (32-36); MEAN CORPUSCULAR VOLUME 87 FL (80-99); MEAN PLATELET VOLUME 9.4 FL (7.4-10.4); MONOCYTES # (AUTO) 0.2 X 10^3 (0.0-1.0); MONOCYTES % (AUTO) 2 % (0-12); NEUTROPHILS % (AUTO) 73 % (42-75); PLATELET COUNT 281 10^3/uL (130-400); RED CELL DISTRIBUTION WIDTH 13.1 % (10.0-14.5); WHITE BLOOD COUNT 8.3 10^3/uL (4.3-11.0)
[2019-08-18 22:36] LABS: BILIRUBIN,URINE NEGATIVE (NEGATIVE); CLARITY,URINE CLEAR; COLOR,URINE YELLOW; GLUCOSE, URINE (UA) NEGATIVE (NEGATIVE); KETONES,URINE NEGATIVE (NEGATIVE); LEUKOCYTE ESTERASE ,URINE NEGATIVE (NEGATIVE); NITRITE,URINE NEGATIVE (NEGATIVE); PH,URINE 6.5 (5-9); PROTEIN,URINE NEGATIVE (NEGATIVE)
[2019-08-18 22:42] LABS: ALBUMIN 3.8 GM/DL (3.2-4.5)
[2019-08-18 22:43] LABS: AMYLASE 68 U/L (25-125); CHLORIDE 109 MMOL/L (98-107); POTASSIUM 3.5 MMOL/L (3.6-5.0); SODIUM 141 MMOL/L (135-145)
[2019-08-18 22:44] LABS: CALCIUM 8.2 MG/DL (8.5-10.1)
[2019-08-18 22:45] LABS: GLUCOSE 129 MG/DL (70-105); TOTAL PROTEIN 6.5 GM/DL (6.4-8.2)
[2019-08-18 22:46] LABS: CARBON DIOXIDE 23 MMOL/L (21-32)
[2019-08-18 22:47] LABS: BILIRUBIN,TOTAL 0.2 MG/DL (0.1-1.0)
[2019-08-18 22:47] LABS: BACTERIA,URINE NEGATIVE /HPF; SQUAMOUS EPITHELIAL CELL,UR 0-2 /HPF
[2019-08-18 22:48] LABS: ALKALINE PHOSPHATASE 62 U/L (40-136)
[2019-08-18 22:49] LABS: GFR ESTIMATED > 60
[2019-08-18 22:50] LABS: BUN/CREATININE RATIO 15
[2019-08-18 22:51] LABS: ALANINE AMINOTRANSFERASE 36 U/L (0-55)
[2019-08-18 22:52] LABS: LIPASE 35 U/L (8-78)
[2019-08-18] MEDS ORDERED: HOLD METFORMIN - RECEIVED CONTRAST 20 ML VIAL IV SCH (23:00)
[2019-08-18] MEDS ORDERED: NS 100 ML (IVPB) BAG IV ONE (23:00)
[2019-08-18] MEDS ORDERED: IOHEXOL 350 MG/ML 100 ML (OMNIPAQUE 350) VIAL IV ONE (23:00)
--- NOTE | 2019-08-18 23:02 | ED Abdominal Pain ---
General Chief Complaint: Abdominal/GI Problems Stated Complaint: ABD PAIN Nursing Triage Note: INTERMITTANT ABDOMINAL PAIN SINCE 08/16/19 S/P BILAT LAPROSCOPIC OOPHERECTOMY. PT REPORTS PAIN CONSTANT X1HR. REPORTS NAUSEA/MIGRAINE SINCE 1700 Sepsis Screen: No Definite Risk Source of Information: Patient History of Present Illness Date Seen by Provider: Aug 18, 2019 Time Seen by Provider: 22:13 Initial Comments PT ARRIVES VIA EMS FROM HOME C/O MID ABDOMINAL PAIN --BEGAN LESS THAN AN HOUR AGO NOTHING WORSENS OR IMPROVES PAIN + NAUSEA, NO VOMITING--EMS GAVE ZOFRAN 4 MG PRIOR TO ARRIVAL HAD NORMAL BM AT 1700--NO CONSTIPATION OR DIARRHEA NO FEVER NO PROBLEMS URINATING PT HAD BILATERAL OOPHORECTOMY FOR CHRONIC PELVIC PAIN ON 08/16/[address] REES AT [place] HAS HAD SOME INTERMITTENT PAIN SINCE SURGERY HAS NOT ATTEMPTED TO CONTACT HER SURGEON FOLLOW UP APPOINTMENT 08/30/19 AT 1400 PT HAD HYSTERECTOMY 10/20/2018 FOR THIS SAME PROBLEM OF CHRONIC PELVIC PAIN BY DR. VALENCIA ATE FULL/REGULAR MEAL AT 1700 TOOK OXYCODONE AT 1830 WAS ALSO SENT HOME WITH SCOPOLAMINE PATCH PCP: DR. 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 REES AT [place] Allergies and Home Medications Allergies Coded Allergies: codeine (Verified Adverse Reaction, Mild, NAUSEA, 12/09/17) morphine (Unverified Adverse Reaction, Mild, NAUSEA, 12/09/17) Home Medications Cefdinir 300 Mg Capsule, 300 MG PO BID Prescribed by: CORI HOBBS on 08/18/192351 Cyclobenzaprine HCl 10 Mg Tablet, 10 MG PO DAILY PRN for MIGRAINE, (Reported) Dexamethasone 0.5 Mg Tablet, 0.5 MG PO We, (Reported) Dicyclomine HCl 20 Mg Tablet, 20 MG PO Q6H Prescribed by: CORI HOBBS on 08/18/192354 Dihydroergotamine Mesylate 1 Ml [place].pump, 1 SPRAY NS DAILY PRN for MIGRAINE, (Reported) Hyoscyamine Sulfate 0.125 Mg Tab.subl, 0.25 MG SL Q4H Prescribed by: CORI HOBBS on 08/18/192354 Ondansetron 8 Mg Tab.rapdis, 8 MG PO Q6H Prescribed by: CORI HOBBS on 08/18/192354 Promethazine HCl 25 Mg Tablet, 25 MG PO Q6H PRN for NAUSEA/VOMITING-2ND LINE, (Reported) Patient Home Medication List Home Medication List Reviewed: Yes Review of Systems Review of Systems Constitutional: no symptoms reported; No chills, No diaphoresis, No fever EENTM: No Symptoms Reported Respiratory: No Symptoms Reported; Denies Cough, Denies Shortness of Air Cardiovascular: No Symptoms Reported; Denies Chest Pain Gastrointestinal: See HPI, Abdominal Pain; Denies Constipated, Denies Diarrhea; Nausea; Denies Poor Appetite, Denies Poor Fluid Intake, Denies Vomiting Genitourinary: No Symptoms Reported Musculoskeletal: no symptoms reported; No back pain Skin: no symptoms reported Psychiatric/Neurological: No Symptoms Reported Endocrine: No Symptoms Reported Hematologic/Lymphatic: No Symptoms Reported Past Timudrq-Cmmsaa-Bseiqw Hx Past Med/Social Hx: Reviewed and Corrections made Patient Social History Alcohol Use: Occasionally Uses Recreational Drug Use: No Smoking Status: Never a Smoker Recent Foreign Travel: No Contact w/Someone Who Travel: No Recent Infectious Disease Expo: No Recent Hopitalizations: Yes (OOPHERECTOMY 08/16/19) Physical Abuse: No Sexual Abuse: No Mistreated: No Fear: No Immunizations Up To Date Tetanus Booster (TDap): Less than 5yrs Date of Influenza Vaccine: Feb 22, 2017 Seasonal Allergies Seasonal Allergies: Yes Past Medical History Surgeries: Yes (BILAT KNEE SCOPES, LEFT SHOULDER, LEFT ELBOW, DXLS-HYST 01/2019;BSO 08/16/19) Section, Gallbladder, Hysterectomy, Oophorectomy, Orthopedic Respiratory: No Cardiac: No Neurological: Yes Headaches /Migraines : No Reproductive Disorders: Yes (CHRONIC PELVIC PAIN-LAPAROSCOPIES WITH HYST AND LATER BSO) Female Reproductive Disorders: Menstrual Problems, Endometriosis, Ovarian Cyst, Polycystic Ovarian Dis 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 Sexually Transmitted Disease: No HIV/AIDS: No Genitourinary: No Gastrointestinal: No (WITH ) Gastroesophageal Reflux Musculoskeletal: Yes (DISLOCATED COCCYX DURING FIRST DELIVERY ( VAGINAL) ) Endocrine: Yes Hypothyroidsim HEENT: No Loss of Vision: Denies Hearing Impairment: Denies Cancer: No Psychosocial: Yes Anxiety, Depression Integumentary: No Blood Disorders: No Adverse Reaction/Blood Tranf: No (N/A) Family Medical History Cardiovascular disease 19 FATHER Diabetes mellitus 19 MOTHER Hypertension 19 MOTHER Kidney disease 19 MOTHER LUPUS 19 MOTHER PSH: -Robotic-assisted total laparoscopic hysterectomy with bilateral salpingectomy and anterior colporrhaphy. 10/20/[address] VALENCIA -BILATERAL OOPHORECTOMY 08/16/[address] REES AT [place] -Laparoscopic cauterization of peritoneal implants on the uterosacral ligaments. 12/[address] VALENCIA. -Operative laparoscopy with right ovarian cystotomy 04/[address] VALENCIA - X 1 -BILATERAL KNEE SCOPES -LEFT SHOULDER SURGERY -LEFT ELBOW SURGERY Physical Exam Vital Signs Vital Signs - First Documented 08/18/19 22:13 Temp 36.8 Pulse 99 Resp 18 B/P (MAP) 135/77 (96) Pulse Ox 97 O2 Delivery Room Air Capillary Refill : Less Than 3 Seconds Height/Weight/BMI Height: 5'3.00" Weight: 183lbs. 0.0oz. 83.639310ye; 33.00 BMI Method: General Appearance: WD/WN, no apparent distress, other (SMILING, LAYING OUT STRETCHED. DOES NOT APPEAR TO BE IN ANY DISCOMFORT OR DISTRESS) Respiratory: normal breath sounds, no respiratory distress, no accessory muscle use Cardiovascular: regular rate, rhythm, no murmur Gastrointestinal: normal bowel sounds, soft, no organomegaly, no pulsatile mass, tenderness (DIFFUSE TENDERNESS), other (INCISIONS WITH BANDAIDS IN PLACE--CLEAN/DRY/INTACT. NO SIGNS OF INFECTION. 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4 FL Neutrophils (%) (Auto) 73 42-75 % Lymphocytes (%) (Auto) 23 12-44 % Monocytes (%) (Auto) 2 0-12 % Eosinophils (%) (Auto) 3 0-10 % Basophils (%) (Auto) 0 0-10 % Neutrophils # (Auto) 6.0 1.8-7.8 X 10^3 Lymphocytes # (Auto) 1.9 1.0-4.0 X 10^3 Monocytes # (Auto) 0.2 0.0-1.0 X 10^3 Eosinophils # (Auto) 0.2 0.0-0.3 10^3/uL Basophils # (Auto) 0.0 0.0-0.1 10^3/uL Sodium Level 141 135-145 MMOL/L Potassium Level 3.5 L 3.6-5.0 MMOL/L Chloride Level 109 H 98-107 MMOL/L Carbon Dioxide Level 23 21-32 MMOL/L Anion Gap 9 5-14 MMOL/L Blood Urea Nitrogen 12 7-18 MG/DL Creatinine 0.80 0.60-1.30 MG/DL Estimat Glomerular Filtration Rate > 60 BUN/Creatinine Ratio 15 Glucose Level 129 H 70-105 MG/DL Calcium Level 8.2 L 8.5-10.1 MG/DL Corrected Calcium 8.4 L 8.5-10.1 MG/DL Total Bilirubin 0.2 0.1-1.0 MG/DL Aspartate Amino Transf (AST/SGOT) 24 5-34 U/L Alanine Aminotransferase (ALT/SGPT) 36 0-55 U/L Alkaline Phosphatase 62 40-136 U/L Total Protein 6.5 6.4-8.2 GM/DL Albumin 3.8 3.2-4.5 GM/DL Amylase Level 68 25-125 U/L Lipase 35 8-78 U/L Urine Color YELLOW Urine Clarity CLEAR Urine pH 6.5 5-9 Urine Specific [place] 1.025 H 1.016-1.022 Urine Protein NEGATIVE NEGATIVE Urine Glucose (UA) NEGATIVE NEGATIVE Urine Ketones NEGATIVE NEGATIVE Urine Nitrite NEGATIVE NEGATIVE Urine Bilirubin NEGATIVE NEGATIVE Urine Urobilinogen 0.2 < = 1.0 MG/DL Urine Leukocyte Esterase NEGATIVE NEGATIVE Urine RBC (Auto) NEGATIVE NEGATIVE Urine RBC NONE /HPF Urine WBC NONE /HPF Urine Squamous Epithelial Cells 0-2 /HPF Urine Crystals NONE /LPF Urine Bacteria NEGATIVE /HPF Urine Casts NONE /LPF Urine Mucus NEGATIVE /LPF Urine Culture Indicated NO My Orders Orders - CORI HOBBS DO Ed Iv/Invasive Line Start (08/18/19 22:22) Amylase (08/18/19 22:22) Cbc With Automated Diff (08/18/19 22:22) Comprehensive Metabolic Panel (08/18/19 22:22) Lipase (08/18/19 22:22) Ua Culture If Indicated (08/18/19 22:22) Acute Abd Series (08/18/19 22:22) Ct Abdomen/Pelvis W (08/18/19 22:22) Iohexol Injection (Omnipaque 350 Mg/Ml 1 (08/18/19 23:00) Received Contrast (Hold Metformin- Contr (08/18/19 23:00) Ns (Ivpb) (Sodium Chloride 0.9% Ivpb Bag (08/18/19 23:00) Rx-Dicyclomine Capsule (Rx-Bentyl Capsul (08/18/19 23:54) Rx-Hyoscyamine Tab (Rx-Levsin Sl) (08/18/19 23:54) Rx-Ondansetron Po (Rx-Zofran Po) (08/18/19 23:54) Medications Given in ED Current Medications Medications Dose Ordered Sig/Jing Route Start Time Stop Time Status Last Admin Dose Admin Iohexol 100 ml ONCE ONCE IV 08/18/19 23:00 08/18/19 23:01 DC 08/18/19 23:06 100 ML Sodium Chloride 100 ml ONCE ONCE IV 08/18/19 23:00 08/18/19 23:01 DC 08/18/19 23:06 80 ML Vital Signs/I&O 08/18/19 08/18/19 22:13 23:59 Temp 36.8 36.7 Pulse 99 95 Resp 18 18 B/P (MAP) 135/77 (96) 125/77 (96) Pulse Ox 97 100 O2 Delivery Room Air Room Air Blood Pressure Mean: 96 Progress Progress Note : Progress Note SYMPTOMS IMPROVED AT DISMISSAL--NO FURTHER COMPLAINTS Diagnostic Imaging Comments ABDOMEN XRAYS--NO ACUTE PROCESS, PENDING RADIOLOGIST REVIEW CT ABDOMEN/PELVIS--POST OP CHANGES, NON-SPECIFIC SMALL MESENTERIC LYMPH NODES AND MILD INFILTRATION OF ADJACENT FAT-POSSIBLE MESENTERIC PANNICULITIS. NON - SPECIFIC FINDINGS OF COLON-LIMITED EXAM DUE TO POOR DISTENTION, CANNOT RULE OUT COLITIS. PER [facility] VIA FAX AT [id number] Reviewed: Reviewed by Me Departure Impression Primary Impression: Postoperative generalized abdominal pain Additional Impression: POSSIBLE MESENTRIC ADENITIS Disposition: 01 HOME, SELF-CARE Condition: Stable Departure-Patient Inst. Referrals: GONZALES MCGRATH DO (PCP) Primary Care Physician GRZEGORZ MCGRATH, LEEANN (Family) Primary Care Physician Patient Instructions: Mesenteric Lymphadenitis (DC), Postoperative Pain (DC) Add. Discharge Instructions: CLEAR LIQUIDS--WATER, BROTH, JELLO, GATORADE NO FOOD UNTIL YOUR PAIN IS GONE CONTINUE OXYCODONE FOR PAIN TAKE MIRALAX DAILY FOLLOW UP WITH YOUR SURGEON IN 2-3 DAYS IF NO BETTER All discharge instructions reviewed with patient and/or family. Voiced understanding. Scripts Ondansetron (Ondansetron Odt) 8 Mg Tab.rapdis 8 MG PO Q6H, #10 TAB Prov: CORI HOBBS DO 08/18/19 Hyoscyamine Sulfate (Levsin-Sl) 0.125 Mg Tab.subl 0.25 MG SL Q4H, #10 TAB Prov: CORI HOBBS DO 08/18/19 Dicyclomine HCl (Dicyclomine HCl) 20 Mg Tablet 20 MG PO Q6H for Abdominal Pain, #20 TAB Prov: CORI HOBBS DO 08/18/19 Cefdinir (Cefdinir) 300 Mg Capsule 300 MG PO BID, #20 CAP Prov: CORI HOBBS DO 08/18/19 CORI HOBBS DO Aug 18, 2019 23:02
--- NOTE | 2019-08-18 23:50 | NUR ---
pt informed her called et. we were still waiting on results.
[2019-08-18] MEDS ORDERED: CEFD300C3 PO (23:52)
[2019-08-18] MEDS ORDERED: RX-DICYCLOMINE 10 MG (BENTYL) CAP PPK#4 PO STA (23:54)
[2019-08-18] MEDS ORDERED: RX-ONDANSETRON 4 MG ODT (ZOFRAN) PPK #4 PO STA (23:54)
[2019-08-18] MEDS ORDERED: RX-HYOSCYAMINE 0.125 MG SL (LEVSIN) PPK#6 SL STA (23:54)
[2019-08-18] MEDS ORDERED: DICY20TA10 PO (23:55)
[2019-08-18] MEDS ORDERED: HYOS0.1283 SL (23:55)
[2019-08-18] MEDS ORDERED: ONDA8TAB13 PO (23:55)
[2019-08-18 23:59] VITALS: BP 125/77
--- NOTE | 2019-08-19 06:28 | Diagnostic Imaging Report ---
Acute abdomen series. INDICATION: Abdominal pain. FINDINGS: The accompanying erect PA chest shows heart size to be within normal limits and stable when compared to 02/22/2017. The lungs are generally clear. The carotid bronchovascular markings in the right infrahilar region seen previously are again evident and no different. The mediastinum is not widened. Supine and erect views of the abdomen were obtained. There is gas in both large and small bowel in a nonspecific fashion. There is no evidence for bowel obstruction. There is no mass or organomegaly or pathological calcification evident. Surgical clips are seen overlying the right upper quadrant. There is also single surgical staple overlying the left mid abdomen. The osseous structures are intact. IMPRESSION: 1. The bowel gas pattern is nonspecific. There is no acute abnormality identified. 2. Reportedly, CT of the abdomen and pelvis is pending for further study. Dictated by: Dictated on workstation # [id number]
--- NOTE | 2019-08-19 06:33 | Diagnostic Imaging Report ---
PROCEDURE: CT abdomen and pelvis with contrast. TECHNIQUE: Multiple contiguous axial images were obtained through the abdomen and pelvis after administration of intravenous contrast. Auto Exposure Controls were utilized during the CT exam to meet ALARA standards for radiation dose reduction. INDICATION: Intermittent abdominal pain for 2 days. COMPARISON: None. DISCUSSION: The lung bases are unremarkable. Normal heart size. No pleural or pericardial fluid. Fatty hepatomegaly is noted. The gallbladder is surgically absent. The pancreas, stomach, spleen, and adrenal glands are unremarkable. No hydronephrosis or renal mass. The aorta is normal in caliber. Very mild inflammation noted along the mesenteric root with shotty-appearing adenopathy, likely adenitis. No evidence for appendicitis. No obstruction, pneumatosis, pneumoperitoneum. The uterus is surgically absent. Urinary bladder is decompressed. No ascites. No acute osseous abnormality. There may be some inflammation of the transverse and descending colon which could be seen with nonspecific colitis. Some induration noted along the left body wall involving the subcutaneous fat which could be seen with scarring or mild edema or trauma. No drainable fluid identified. IMPRESSION: 1. Possible nonspecific colitis involving the transverse and descending colon. Colon is decompressed which may accentuate the appearance of wall thickening though there does appear to be some mild surrounding inflammatory change present. 2. Mild inflammatory changes noted along the mesenteric root, likely mesenteric adenitis. 3. Fatty hepatomegaly. 4. Agree with preliminary report. Dictated by: Dictated on workstation # [id number]
== END 2019-08-18 23:59 | disposition home or self-care (01) ==
LOC: EDUNIT# 22:12 → ER 22:13
DX: G89.18 Other acute postprocedural pain (principal); R10.84 Generalized abdominal pain; G43.909 Migraine, unspecified, not intractable, without status migrainosus; Z88.5 Allergy status to narcotic agent; Z82.49 Family history of ischemic heart disease and other diseases of the circulatory system
CPT/HCPCS: 36415; 74022; 74177; 80053; 81000; 82150; 83690; 85025

== ENCOUNTER → 2020-08-06 | Outpatient (CLI) | payer BC ==
[~2020-08-06] MED LIST changes: +ALPR.25T; +BUTA-235 PO; -BUTA1TAB9 PO; +CEFD300C3 PO; +DICY20TA10 PO; +FREM225S; +HYOS0.1283 SL; +LEVO75TA6; +ONDA8TAB13 PO; +OXYC1TAB11; +SEMA3TAB
--- NOTE | 2020-08-06 14:30 | Diagnostic Imaging Report ---
GASTRIC EMPTYING TIME SCAN Technique: Anterior and posterior planar scintigraphic images of the stomach were obtained after the patient ingested 1.0 mCi of technetium 99m sulfur collate mixed with eggs. Indication: Abdominal pain Comparison: None available. Findings: A time activity curve was calculated for the stomach with the following values of retained activity in the stomach post ingestion: 1 hour: 33% (delayed if greater than 90% retained) 2 hour: 10% (delayed if greater than 60% retained) 3 hour: 7% (delayed if greater than 30% retained) 4 hour: 2% (delayed if greater than 10%) The half-time (T1/2) for gastric emptying was 50 minutes, which is normal. Impression:No gastroparesis. Dictated by: Dictated on workstation # [id number]
== END ==
LOC: CARD 07:00
PROVIDERS: ATTEND Nurse Practitioner Family
DX: K80.20 Calculus of gallbladder without cholecystitis without obstruction (principal)
CPT/HCPCS: 78264; A9541

== ENCOUNTER 2020-08-15 19:50 | Emergency (ER) | payer BC ==
[~2020-08-15] VITALS: Ht 160 cm; Wt 84.7 kg
--- NOTE | 2020-08-15 20:02 | ED Headache ---
General Stated Complaint: VOMITING,ABD PAIN,MIGRIANE Source: patient Exam Limitations: no limitations History of Present Illness Date Seen by Provider: Aug 15, 2020 Time Seen by Provider: 19:57 Initial Comments 39-year-old female presents with chronic abdominal pain, chronic vomiting and a migraine. She reports that over the last couple days migraine is been there with increasing in her chronic vomiting and pain. Patient reports that she is scheduled for ERCP 08/22/2020 in [facility]. Patient reports that if she moves or eats that she is vomits. She denies any diarrhea, fevers, chills, cough, shortness of breath. Patient last took a Zofran at 10 AM this morning. Allergies and Home Medications Allergies Coded Allergies: codeine (Verified Adverse Reaction, Mild, NAUSEA, 12/09/17) morphine (Unverified Adverse Reaction, Mild, NAUSEA, 12/09/17) Home Medications Cefdinir 300 Mg Capsule, 300 MG PO BID Prescribed by: CORI HOBBS on 08/18/192351 Cyclobenzaprine HCl 10 Mg Tablet, 10 MG PO DAILY PRN for MIGRAINE, (Reported) Dexamethasone 0.5 Mg Tablet, 0.5 MG PO We, (Reported) Dicyclomine HCl 20 Mg Tablet, 20 MG PO Q6H Prescribed by: CORI HOBBS on 08/18/192354 Dihydroergotamine Mesylate 1 Ml [place].pump, 1 SPRAY NS DAILY PRN for MIGRAINE, (Reported) Hyoscyamine Sulfate 0.125 Mg Tab.subl, 0.25 MG SL Q4H Prescribed by: CORI HOBBS on 08/18/192354 Ondansetron 8 Mg Tab.rapdis, 8 MG PO Q6H Prescribed by: CORI HOBBS on 08/18/192354 Promethazine HCl 25 Mg Tablet, 25 MG PO Q6H PRN for NAUSEA/VOMITING-2ND LINE, (Reported) Patient Home Medication List Home Medication List Reviewed: Yes Review of Systems Review of Systems Constitutional: No fever Ears, Nose, Mouth, Throat: no symptoms reported Respiratory: no symptoms reported Cardiovascular: no symptoms reported Gastrointestinal: abdominal pain, nausea, vomiting Genitourinary: no symptoms reported Musculoskeletal: no symptoms reported Skin: no symptoms reported Psychiatric/Neurological: Headache Past Fzwkohn-Tohnnp-Vxwtwm Hx Past Med/Social Hx: Reviewed Nursing Past Med/Soc Hx Patient Social History Recent Hopitalizations: Yes (OOPHERECTOMY 08/16/19) Immunizations Up To Date Tetanus Booster (TDap): Less than 5yrs Date of Influenza Vaccine: Feb 22, 2017 Seasonal Allergies Seasonal Allergies: Yes Past Medical History Surgeries: Yes (BILAT KNEE SCOPES, LEFT SHOULDER, LEFT ELBOW, DXLS-HYST 01/2019;BSO 08/16/19) Section, Gallbladder, Hysterectomy, Oophorectomy, Orthopedic Respiratory: No Cardiac: No Neurological: Yes Headaches /Migraines Reproductive Disorders: Yes (CHRONIC PELVIC PAIN-LAPAROSCOPIES WITH HYST AND LATER BSO) Female Reproductive Disorders: Menstrual Problems, Endometriosis, Ovarian Cyst, 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 Sexually Transmitted Disease: No HIV/AIDS: No Genitourinary: No Gastrointestinal: No (WITH ) Gastroesophageal Reflux Musculoskeletal: Yes (DISLOCATED COCCYX DURING FIRST DELIVERY ( VAGINAL) ) Endocrine: Yes Hypothyroidsim HEENT: No Loss of Vision: Denies Hearing Impairment: Denies Cancer: No Psychosocial: Yes Anxiety, Depression Integumentary: No Blood Disorders: No Adverse Reaction/Blood Tranf: No (N/A) Family Medical History Cardiovascular disease 19 FATHER Diabetes mellitus 19 MOTHER Hypertension 19 MOTHER Kidney disease 19 MOTHER LUPUS 19 MOTHER PSH: -Robotic-assisted total laparoscopic hysterectomy with bilateral salpingectomy and anterior colporrhaphy. 10/20/[address] VALENCIA -BILATERAL OOPHORECTOMY 08/16/[address] REES AT [place] -Laparoscopic cauterization of peritoneal implants on the uterosacral ligaments. 12/[address] VALENCIA. -Operative laparoscopy with right ovarian cystotomy 04/[address] VALENCIA - X 1 -BILATERAL KNEE SCOPES -LEFT SHOULDER SURGERY -LEFT ELBOW SURGERY Physical Exam Vital Signs Vital Signs - First Documented 08/15/20 19:54 Temp 36.1 Pulse 90 Resp 18 B/P (MAP) 146/89 (108) Pulse Ox 96 O2 Delivery Room Air Capillary Refill : Height, Weight, BMI Height: 5'3.00" Weight: 183lbs. 0.0oz. 83.861676db; 33.00 BMI Method: General Appearance: WD/WN, no apparent distress Cardiovascular: normal peripheral pulses, regular rate, rhythm Respiratory: lungs clear, normal breath sounds Gastrointestinal: soft, tenderness (Mild epigastric tenderness) Psychiatric: alert Crainal Nerves: normal speech Motor/Sensory: no motor deficit, no sensory deficit Skin: normal color, warm/dry Progress/Results/Core Measures Results/Orders Lab Results Laboratory Tests Test 08/15/20 20:06 Range/Units White Blood Count 6.3 4.3-11.0 10^3/uL Red Blood Count 4.87 4.35-5.85 10^6/uL Hemoglobin 14.0 11.5-16.0 G/DL Hematocrit 43 35-52 % Mean Corpuscular Volume 85 80-99 FL Mean Corpuscular Hemoglobin 29 25-34 PG Mean Corpuscular Hemoglobin Concent 34 32-36 G/DL Red Cell Distribution Width 12.7 10.0-14.5 % Platelet Count 299 130-400 10^3/uL Mean Platelet Volume 9.6 7.4-10.4 FL Immature Granulocyte % (Auto) 0 % Neutrophils (%) (Auto) 38 L 42-75 % Lymphocytes (%) (Auto) 52 H 12-44 % Monocytes (%) (Auto) 7 0-12 % Eosinophils (%) (Auto) 2 0-10 % Basophils (%) (Auto) 0 0-10 % Neutrophils # (Auto) 2.4 1.8-7.8 X 10^3 Lymphocytes # (Auto) 3.3 1.0-4.0 X 10^3 Monocytes # (Auto) 0.5 0.0-1.0 X 10^3 Eosinophils # (Auto) 0.1 0.0-0.3 10^3/uL Basophils # (Auto) 0.0 0.0-0.1 10^3/uL Immature Granulocyte # (Auto) 0.0 0.0-0.1 10^3/uL Sodium Level 140 135-145 MMOL/L Potassium Level 3.5 L 3.6-5.0 MMOL/L Chloride Level 105 98-107 MMOL/L Carbon Dioxide Level 26 21-32 MMOL/L Anion Gap 9 5-14 MMOL/L Blood Urea Nitrogen 12 7-18 MG/DL Creatinine 0.84 0.60-1.30 MG/DL Estimat Glomerular Filtration Rate > 60 BUN/Creatinine Ratio 14 Glucose Level 114 H 70-105 MG/DL Calcium Level 9.7 8.5-10.1 MG/DL Corrected Calcium 9.4 8.5-10.1 MG/DL Total Bilirubin 0.4 0.1-1.0 MG/DL Aspartate Amino Transf (AST/SGOT) 20 5-34 U/L Alanine Aminotransferase (ALT/SGPT) 25 0-55 U/L Alkaline Phosphatase 103 40-136 U/L Total Protein 7.4 6.4-8.2 GM/DL Albumin 4.4 3.2-4.5 GM/DL Lipase 35 8-78 U/L My Orders Orders - LESVIA SUMNERVOR L DO Cbc With Automated Diff (08/15/20 20:03) Comprehensive Metabolic Panel (08/15/20 20:03) Lipase (08/15/20 20:03) Abdomen Flat & Upright/Decub (08/15/20 20:03) Metoclopramide Injection (Reglan Injecti (08/15/20 20:03) Lactated Ringers (Lr 1000 Ml Iv Solution (08/15/20 20:03) Hyoscyamine Sl Tablet (Levsin Sl Tablet) (08/15/20 20:15) Ketorolac Injection (Toradol Injection) (08/15/20 20:03) Ed Iv/Invasive Line Start (08/15/20 20:16) Medications Given in ED Current Medications Medications Dose Ordered Sig/Jing Route Start Time Stop Time Status Last Admin Dose Admin Hyoscyamine Sulfate 0.125 mg ONCE ONCE SL 08/15/20 20:15 08/15/20 20:16 DC 08/15/20 20:13 0.125 MG Vital Signs/I&O 08/15/20 19:54 Temp 36.1 Pulse 90 Resp 18 B/P (MAP) 146/89 (108) Pulse Ox 96 O2 Delivery Room Air Progress Progress Note : Time: 20:48 Progress Note pts symptoms improved with treatment, no vomiting while in ER. pt discharged home in stable condition. Departure Impression Primary Impression: Migraine Qualified Codes: G43.909 - Migraine, unspecified, not intractable, without status migrainosus Additional Impressions: Chronic abdominal pain Chronic vomiting Disposition: HOME, SELF-CARE Condition: Stable Departure-Patient Inst. Referrals: GRZEGORZ MCGRATHP, DNP (PCP/Family) Primary Care Physician Patient Instructions: Nausea and Vomiting, Adult (DC), Home Headache Remedies, Migraines in Adults Add. Discharge Instructions: follow up with your primary care provider for continued management JARRELL SUMNER DO Aug 15, 2020 20:02
[2020-08-15] MEDS ORDERED: KETOROLAC 30 MG/ML VIAL IVP STA (20:03)
[2020-08-15] MEDS ORDERED: METOCLOPRAMIDE INJ 10 MG/2 ML (REGLAN) IVP STA (20:03)
[2020-08-15] MEDS ORDERED: LACTATED RINGERS 1,000 ML IV STA (20:03)
[2020-08-15 20:15] LABS: HEMATOCRIT 43 % (35-52); MEAN CORPUSCULAR HEMOGLOBIN 29 PG (25-34); MEAN CORPUSCULAR HGB CONC 34 G/DL (32-36); MEAN CORPUSCULAR VOLUME 85 FL (80-99); MEAN PLATELET VOLUME 9.6 FL (7.4-10.4); PLATELET COUNT 299 10^3/uL (130-400); WHITE BLOOD COUNT 6.3 10^3/uL (4.3-11.0)
[2020-08-15] MEDS ORDERED: HYOSCYAMINE 0.125 MG (LEVSIN) TAB SL ONE (20:15)
[2020-08-15 20:16] LABS: BASOPHILS % (AUTO) 0 % (0-10); EOSINOPHILS # (AUTO) 0.1 10^3/uL (0.0-0.3); EOSINOPHILS % (AUTO) 2 % (0-10); LYMPHOCYTES # (AUTO) 3.3 X 10^3 (1.0-4.0); LYMPHOCYTES % (AUTO) 52 % (12-44); MONOCYTES # (AUTO) 0.5 X 10^3 (0.0-1.0); MONOCYTES % (AUTO) 7 % (0-12); NEUTROPHILS # (AUTO) 2.4 X 10^3 (1.8-7.8); NEUTROPHILS % (AUTO) 38 % (42-75)
[2020-08-15 20:34] LABS: CHLORIDE 105 MMOL/L (98-107); POTASSIUM 3.5 MMOL/L (3.6-5.0); SODIUM 140 MMOL/L (135-145)
[2020-08-15 20:35] LABS: ALANINE AMINOTRANSFERASE 25 U/L (0-55); ALBUMIN 4.4 GM/DL (3.2-4.5); ALKALINE PHOSPHATASE 103 U/L (40-136); BILIRUBIN,TOTAL 0.4 MG/DL (0.1-1.0); BUN/CREATININE RATIO 14; CALCIUM 9.7 MG/DL (8.5-10.1); CARBON DIOXIDE 26 MMOL/L (21-32); CREATININE SERUM 0.84 MG/DL (0.60-1.30); GFR ESTIMATED > 60; GLUCOSE 114 MG/DL (70-105); LIPASE 35 U/L (8-78); TOTAL PROTEIN 7.4 GM/DL (6.4-8.2)
[2020-08-15 20:50] VITALS: BP 124/71
--- NOTE | 2020-08-15 21:07 | Diagnostic Imaging Report ---
INDICATION: Nausea, vomiting and abdominal pain. COMPARISON: 08/18/2019. FINDINGS: No free intraperitoneal air. Nonobstructive bowel gas pattern. Cholecystectomy clips are noted. Moderate volume of colonic stool. Normal regional skeleton. IMPRESSION: No free air and no feature of bowel obstruction. Dictated by: Dictated on workstation # [id number]
== END 2020-08-15 20:50 | disposition home or self-care (01) ==
LOC: EDUNIT# 19:50 → ER FS 19:52
DX: G43.909 Migraine, unspecified, not intractable, without status migrainosus (principal); G89.29 Other chronic pain; R10.13 Epigastric pain; R11.10 Vomiting, unspecified; I10 Essential (primary) hypertension; Z88.5 Allergy status to narcotic agent; Z83.3 Family history of diabetes mellitus; Z82.49 Family history of ischemic heart disease and other diseases of the circulatory system
CPT/HCPCS: 36415; 74019; 80053; 83690; 85025

== ENCOUNTER 2020-11-08 05:41 | Outpatient (RCR) | payer BC ==
[~2020-11-08] VITALS: Ht 160 cm; Wt 86.0 kg
[~2020-11-08 05:41] MED LIST changes: -CRAN500T2 PO; +CRAN500T3 PO
== END 2020-11-08 12:17 | disposition home or self-care (01) ==
LOC: PREOP 05:41
PROVIDERS: ATTEND Surgery
DX: Z01.812 Encounter for preprocedural laboratory examination (principal); K21.9 Gastro-esophageal reflux disease without esophagitis; Z20.822 Contact with and (suspected) exposure to COVID-19
CPT/HCPCS: 87635

== ENCOUNTER 2020-11-13 10:04 | Day surgery (SDC) | payer BC ==
[~2020-11-13] VITALS: Ht 165.1 cm; Wt 86.0 kg
[2020-11-13] VITALS (8 sets, daily range): BP systolic 101–128; BP diastolic 57–88
[2020-11-13] MEDS ORDERED: LACTATED RINGERS 1,000 ML IV STA (10:08)
[2020-11-13] MEDS ORDERED: LACTATED RINGERS 1,000 ML IV ONE (10:10)
[2020-11-13] MEDS ORDERED: HURRICAINE EXT TUBE (BENZOCAINE) XX PRN (10:15)
[2020-11-13] MEDS ORDERED: LIDOCAINE JELLY 2% 6 ML SYRINGE MM PRN (10:15)
--- NOTE | 2020-11-13 11:24 | Progress Note-Pre Operative ---
Pre-Operative Progress Note H&P Reviewed The H&P was reviewed, patient examined and no changes noted. Date Seen by Provider: Nov 13, 2020 Time Seen by Provider: 10:30 Date H&P Reviewed: Nov 13, 2020 Time H&P Reviewed: 10:30 Pre-Operative Diagnosis: GERD, change bowel habits KIMBER MICHAEL MD Nov 13, 2020 11:24
[2020-11-13] MEDS ORDERED: PANT40TA2 PO (11:25)
--- NOTE | 2020-11-13 11:25 | Discharge Inst-Surgical ---
D/C Lap Instructions-KIDO New, Converted, or Re-Newed RX: RX on Chart Follow up Activity as tolerated N High Fiber Diet 25g or more per day Avoid Alcohol, Caffeine, Spicy [place] and Acid foods. Drink 64 fluid oz or more of fluids per day. Symptoms to Report: Fever over 101 degree F, Nausea/Vomiting If any problems/questions: Contact your physician or go to Emergency Room KIMBER MICHAEL MD Nov 13, 2020 11:25
[2020-11-13] MEDS ORDERED: morphine INJ 10 MG/ML 1ML (SYR OR VIAL) IVP PRN ×2 (11:30)
[2020-11-13] MEDS ORDERED: ONDANSETRON 4 MG/2 ML (SDV) Z0FRAN IVP PRN (11:30)
[2020-11-13] MEDS ORDERED: HYDROcodone/APAP 5 MG/325 MG (LORTAB) TAB PO PRN (11:30)
[2020-11-13] MEDS ORDERED: ACETAMINOPHEN 325 MG TABLET PO PRN (11:30)
[2020-11-13] MEDS ORDERED: MIDAZOLAM 2 MG/2 ML (VERSED) VIAL ONE (11:52)
[2020-11-13] MEDS ORDERED: PROPOFOL INJECTION 50 ML IV ONE (11:53)
[2020-11-13] MEDS ORDERED: LIDOCAINE JELLY 2% 6 ML SYRINGE ONE (12:05)
[2020-11-13] MEDS ORDERED: LIDOCAINE JELLY 2% 6 ML SYRINGE TOP ONE (12:45)
--- NOTE | 2020-11-13 12:46 | Progress Note-Post Operative ---
Post-Operative Progess Note Surgeon (s)/Doughnut Glazier (s) Surgeon KIMBER MICHAEL MD Doughnut Glazier: none Pre-Operative Diagnosis GERD, change bowel habits Post-Operative Diagnosis reflux esophagitis(stage 2), small HH(1.5cm), moderate gastritis. chronic stage 2 ext and int hemorrhoids. Procedure & Operative Findings Date of Procedure 11/13/20 Procedure Performed/Findings EGD with bx. colonoscopy Anesthesia Type mac Estimated Blood Loss Estimated blood loss (mL): minimal Specimens/Packing Specimens Removed ge jxn, antrum KIMBER MICHAEL MD Nov 13, 2020 12:46
--- NOTE | 2020-11-13 18:10 | OPERATIVE REPORT ---
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 POSTOPERATIVE DIAGNOSES: Reflux esophagitis stage II, small hiatal hernia approximately 1.5 cm in size, moderate gastritis more towards the stomach and antrum, mild chronic stage II external and internal hemorrhoids. PROCEDURE: EGD with biopsy, colonoscopy. SURGEON: Lisha Shaw MD. ANESTHESIA: Monitored anesthesia care. ESTIMATED BLOOD LOSS: Minimal. FINDINGS: Reflux esophagitis stage II, small hiatal hernia approximately 1.5 cm in size, moderate gastritis more towards the stomach and antrum, mild chronic stage II external and internal hemorrhoids. DISPOSITION: The patient tolerated the procedure well. INDICATIONS: The patient is a 39-year-old female who has had issues with gastroesophageal reflux disease, which has worsened and she has also developed a change in bowel habits encompassing constipation. She has had an EGD before in the past and she had a grade II reflux esophagitis as well as a small hiatal hernia and two small chronic gastric ulcers. She was also recently started on Linzess for constipation, predominant irritable bowel syndrome. DESCRIPTION OF PROCEDURE: The patient was brought to the endoscopy suite, laid in the left lateral decubitus position. After adequate IV pain and sedative medications and monitored anesthesia care, the mouthpiece was applied. The endoscope was placed in the mouth, visualizing the pharynx and hypopharyngeal region. Vocal cords, epiglottis and vallecula identified and appeared to be normal. The endoscope was then gently intubated esophageal opening and esophagus insufflated. The endoscope was then advanced through the first, second and third portion of esophagus at the level of the GE junction, a reflux esophagitis stage II identified. There were no ulcers or strictures identified in this region. A biopsy was taken with forceps with visualization of good hemostasis. The endoscope was then advanced in the stomach and the endoscope retroflexed, visualizing a small hiatal hernia approximately 1.5 cm in size. There was a moderate severity gastritis more towards the stomach antrum; however, no formal ulcerations, polyps, or any neoplasms. A biopsy was taken of the antrum to rule out H. pylori with visualization of good hemostasis. Endoscope was then advanced through the pylorus and the first and second portion of the duodenum, which appeared normal with no ulcerations or any distal obstructions. The endoscope was then slowly withdrawn while taking a second look and suctioning of residual air with no additional findings. We then proceeded with the colonoscopy portion of the procedure and a digital rectal examination was performed, which revealed chronic stage II external and internal hemorrhoids, not actively edematous nor inflamed and no bleeding. Normal sphincter tone was felt and there were no palpable masses. The endoscope was then intubated to the anus and rectum gently insufflated. The endoscope was then advanced to the valves of Pierce of rectum with no polyps or any neoplasms identified. Through the sigmoid colon, no diverticulosis identified. The endoscope was then advanced through the remainder of the descending, transverse and ascending colon to the cecum. These segments were normal. There were no polyps or any neoplasms identified throughout the colon or rectum. The endoscope was then slowly withdrawn while taking a second look and suctioning of residual air with no additional findings. The patient tolerated the procedure well. We will recommend the necessary lifestyle and diet accommodation first including small and more frequent meals, avoidance of eating at night as well as head elevation while lying supine. She also needs to avoid caffeinated beverages, spicy, greasy and acidic foods. We will also start her on Protonix 40 mg daily. For her change in bowel habits and constipation, we will recommend the addition of a fiber supplement on an every day regular basis and should encompass 25 or more grams daily as well as significant amounts of water to the point where she reaches soft bowel movements on a daily basis. There is nothing anatomically wrong identified within the colon and if she adheres to a high fiber diet and she is asymptomatic, she does not need another colonoscopy for another 10 years. Job ID: [id number] DocumentID: [id number] Dictated Date: 11/13/2020 12:43:18 Tool Maker Date: 11/13/2020 18:09:33 Dictated By: MD JEFFREY REYES
--- NOTE | 2020-11-14 15:19 | Anesthesia-General Post-Op ---
MAC Patient Condition Mental Status/LOC: Same as Preop Cardiovascular: Satisfactory Nausea/Vomiting: Absent Respiratory: Satisfactory Pain: Controlled Complications: Absent Post Op Complications Complications None Follow Up Care/Instructions Patient Instructions None needed. Anesthesiology Discharge Order Discharge Order Patient is doing well, no complaints, stable vital signs, no apparent adverse anesthesia problems. No complications reported per nursing. MANUELA DEL CID CRNA Nov 14, 2020 15:19
== END 2020-11-13 13:15 | disposition home or self-care (01) ==
LOC: ENDO 10:04
PROVIDERS: ATTEND Surgery
DX: K21.00 Gastro-esophageal reflux disease with esophagitis, without bleeding (principal); K59.00 Constipation, unspecified; K44.9 Diaphragmatic hernia without obstruction or gangrene; K29.70 Gastritis, unspecified, without bleeding; K64.1 Second degree hemorrhoids; G43.909 Migraine, unspecified, not intractable, without status migrainosus; F32.9 Major depressive disorder, single episode, unspecified; E03.9 Hypothyroidism, unspecified; F41.9 Anxiety disorder, unspecified; Z79.899 Other long term (current) drug therapy; Z79.890 Hormone replacement therapy; Z90.49 Acquired absence of other specified parts of digestive tract

== ENCOUNTER → 2021-01-09 | Outpatient (CLI) | payer BC ==
[~2021-01-09] MED LIST changes: +PANT40TA2 PO; -PHEN37.53 PO; +PHEN37.58 PO
[2021-01-09 13:43] LABS: BASOPHILS % (AUTO) 0 % (0-10); EOSINOPHILS # (AUTO) 0.1 10^3/uL (0.0-0.3); EOSINOPHILS % (AUTO) 1 % (0-10); HEMATOCRIT 42 % (35-52); HEMOGLOBIN 13.7 g/dL (11.5-16.0); LYMPHOCYTES # (AUTO) 1.8 10^3/uL (1.0-4.0); LYMPHOCYTES % (AUTO) 22 % (12-44); MEAN CORPUSCULAR HEMOGLOBIN 29 pg (25-34); MEAN CORPUSCULAR HGB CONC 33 g/dL (32-36); MEAN CORPUSCULAR VOLUME 89 fL (80-99); MEAN PLATELET VOLUME 9.6 fL (9.0-12.2); MONOCYTES # (AUTO) 0.4 10^3/uL (0.0-1.0); MONOCYTES % (AUTO) 5 % (0-12); NEUTROPHILS # (AUTO) 5.7 10^3/uL (1.8-7.8); NEUTROPHILS % (AUTO) 71 % (42-75); PLATELET COUNT 273 10^3/uL (130-400); WHITE BLOOD COUNT 8.1 10^3/uL (4.3-11.0)
--- NOTE | 2021-01-09 13:59 | Diagnostic Imaging Report ---
INDICATION: Cough and fever as well as dyspnea on exertion. TIME OF EXAM: 1:49 p.m. Correlation is made with prior chest from 11/04/2009. FINDINGS: The heart size is normal. The pulmonary vascularity is unremarkable. The lungs are clear. No infiltrate, effusion or pneumothorax is detected. IMPRESSION: No acute cardiopulmonary process is detected. Dictated by: Dictated on workstation # [id number]
[2021-01-09 14:01] LABS: ERYTHROCYTE SEDIMENTATION RATE 14 MM/HR (0-20)
[2021-01-09 14:03] LABS: ALBUMIN 4.3 GM/DL (3.2-4.5); BILIRUBIN,TOTAL 0.4 MG/DL (0.1-1.0); CALCIUM 9.9 MG/DL (8.5-10.1); CREATININE SERUM 0.75 MG/DL (0.60-1.30); TOTAL PROTEIN 7.6 GM/DL (6.4-8.2)
== END ==
LOC: RAD 13:18
PROVIDERS: ATTEND Nurse Practitioner Family
DX: R05 Cough (principal); R50.9 Fever, unspecified; R06.09 Other forms of dyspnea; T50.Z95A Adverse effect of other vaccines and biological substances, initial encounter
CPT/HCPCS: 36415; 71046; 80053; 85025; 85379; 85652

== ENCOUNTER 2021-07-04 18:04 | Emergency (ER) | payer BC ==
[~2021-07-04] VITALS: Ht 160 cm; Wt 97.0 kg
[~2021-07-04 18:04] MED LIST changes: +CYCL10TA25 PO; -CYCL10TA9 PO; +DICY20TA PO; -DICY20TA10 PO; -MAGN400T8 PO; +MGX400T PO; +POTA-169 PO; -POTA20TA8 PO; -POTA99TA21 PO; +POTA99TA26 PO
[2021-07-04 18:17] VITALS: BP 126/87
--- NOTE | 2021-07-04 18:57 | ED General ---
General Chief Complaint: General Problems/Pain Stated Complaint: GLANDS IN BACK OF HEAD IS SWOLLEN,DIZZY,PAIN Nursing Triage Note: PT AMB TO RM FT2, PT CO OF SWOLLEN GLANDS ON HEAD AND NECK FOR APPROX 1 WEEK, PT CO OF PAIN 1/10 IN AREAS, PT STATES LOWER PART OF FACE HAS ALSO HAD BRAKE OUT OF ACNE. PT STATES HAD TEMP 101.2 LAST PM. PT STATES WAS SEEN IN [facility] YESTERDAY AND TESTED NEG FOR COVID AND FLU. WAS TOLD HAD SOME SORT OF VIRUS.CONT TO HAVE PAIN. PT STATES HAS TAKEN AN 81MG ASA AT 1300 TODAY FOR PAIN Source of Information: Patient Exam Limitations: No Limitations History of Present Illness Date Seen by Provider: Jul 04, 2021 Time Seen by Provider: 18:52 Initial Comments To ER with reports of swollen lymph nodes beneath her jaw and to the back of her neck she had a negative Covid and negative flu test yesterday in [place]. She has some ongoing pain. She has had some sores to the lower jaw and on her scalp. She denies any inguinal or axillary lymphadenopathy. Timing/Duration: 2-3 Days Severity: Moderate Associated Systoms: Denies Symptoms Allergies and Home Medications Allergies Coded Allergies: codeine (Verified Adverse Reaction, Mild, NAUSEA, 12/09/17) morphine (Unverified Adverse Reaction, Mild, NAUSEA, 12/09/17) Patient Home Medication List Home Medication List Reviewed: Yes ALPRAZolam (Xanax Tablet) 0.25 Mg Tablet, (Reported) Entered as Reported by: CARRILLO TORRES on 08/18/192223 Cefdinir (Cefdinir) 300 Mg Capsule, 300 MG PO BID Prescribed by: CORI HOBBS on 08/18/19 235 Cyclobenzaprine HCl (Cyclobenzaprine HCl) 10 Mg Tablet, 10 MG PO DAILY PRN for MIGRAINE, (Reported) Entered as Reported by: JUHI MILLARD on 10/12/18 1406 Dexamethasone (Dexamethasone) 0.5 Mg Tablet, 0.5 MG PO We, (Reported) Entered as Reported by: JUHI MILLARD on 10/12/18 140 Dicyclomine HCl (Dicyclomine HCl) 20 Mg Tablet, 20 MG PO Q6H Prescribed by: CORI HOBBS on 08/18/19 235 Dihydroergotamine Mesylate (Migranal) 1 Ml [place].pump, 1 SPRAY NS DAILY PRN for MIGRAINE, (Reported) Entered as Reported by: SHRUTHI GRIFFIN on 10/13/18 1547 Fremanezumab-Vfrm (Ajovy) 225 Mg/1.5 Ml Syringe, (Reported) Entered as Reported by: CARRILLO TORRES on 08/18/192223 Hyoscyamine Sulfate (Levsin-Sl) 0.125 Mg Tab.subl, 0.25 MG SL Q4H Prescribed by: CORI HOBBS on 08/18/192354 Levothyroxine Sodium (Levothyroxine Sodium) 75 Mcg Tablet, (Reported) Entered as Reported by: CARRILLO TORRES on 08/18/192223 Ondansetron (Ondansetron Odt) 8 Mg Tab.rapdis, 8 MG PO Q6H Prescribed by: CORI HOBBS on 08/18/192354 Oxycodone HCl/Acetaminophen (Oxycodone-Acetaminophen 5-325) 1 Each Tablet, ( Reported) Entered as Reported by: CARRILLO TORRES on 08/18/192223 Pantoprazole Sodium (Protonix) 40 Mg Tablet.dr, 40 MG PO DAILY Prescribed by: KIMBER MICHAEL on 11/13/20 112 Promethazine HCl (Promethazine Tablet) 25 Mg Tablet, 25 MG PO Q6H PRN for NAUSEA/VOMITING-2ND LINE, (Reported) Entered as Reported by: SHRUTHI GRIFFIN on 10/13/18 154 Semaglutide (Rybelsus) 3 Mg Tablet, (Reported) Entered as Reported by: CARRILLO TORRES on 08/18/192223 Review of Systems Review of Systems Constitutional: see HPI, chills, fever EENTM: see HPI Respiratory: no symptoms reported Cardiovascular: no symptoms reported Genitourinary: no symptoms reported Musculoskeletal: no symptoms reported Skin: no symptoms reported Psychiatric/Neurological: No Symptoms Reported Hematologic/Lymphatic: No Symptoms Reported Past Qmndmnp-Rojebi-Kkzolk Hx Patient Social History Tobacco Use?: No Substance use?: No Alcohol Use?: No Pt feels they are or have been: No Immunizations Up To Date Tetanus Booster (TDap): Less than 5yrs First/Initial COVID19 Vaccinat: 2020 Second COVID19 Vaccination Leroy: 2020 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 Seasonal Allergies Seasonal Allergies: Yes Past Medical History Surgeries: Yes (BILAT KNEE SCOPES, LEFT SHOULDER, LEFT ELBOW, DXLS-HYST 01/2019;BSO 08/16/19) Section, Gallbladder, Hysterectomy, Oophorectomy, Orthopedic Respiratory: No Currently Using CPAP: No Currently Using BIPAP: No Cardiac: No Neurological: Yes Headaches /Migraines Reproductive Disorders: Yes (CHRONIC PELVIC PAIN-LAPAROSCOPIES WITH HYST AND LATER BSO) Female Reproductive Disorders: Menstrual Problems, Endometriosis, Ovarian Cyst, Polycystic Ovarian Dis 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 Sexually Transmitted Disease: No HIV/AIDS: No Genitourinary: No Gastrointestinal: Yes (WITH ) Gastroesophageal Reflux, Chronic Constipation Musculoskeletal: Yes (DISLOCATED COCCYX DURING FIRST DELIVERY ( VAGINAL) ) Endocrine: Yes Hypothyroidsim HEENT: No Loss of Vision: Denies Hearing Impairment: Denies Cancer: No Psychosocial: Yes Anxiety, Depression Integumentary: No Blood Disorders: No Adverse Reaction/Blood Tranf: No (N/A) Family Medical History Cardiovascular disease 19 FATHER Diabetes mellitus 19 MOTHER Hypertension 19 MOTHER Kidney disease 19 MOTHER LUPUS 19 MOTHER PSH: -Robotic-assisted total laparoscopic hysterectomy with bilateral salpingectomy and anterior colporrhaphy. 10/20/[address] VALENCIA -BILATERAL OOPHORECTOMY 08/16/[address] REES AT [place] -Laparoscopic cauterization of peritoneal implants on the uterosacral ligaments. 12/[address] VALENCIA. -Operative laparoscopy with right ovarian cystotomy 04/[address] VALENCIA - X 1 -BILATERAL KNEE SCOPES -LEFT SHOULDER SURGERY -LEFT ELBOW SURGERY Physical Exam Vital Signs Vital Signs - First Documented 07/04/21 18:17 Temp 37.2 Pulse 116 Resp 18 B/P (MAP) 126/87 (100) Pulse Ox 98 Capillary Refill : Less Than 3 Seconds Height, Weight, BMI Height: 5'3.00" Weight: 183lbs. 0.0oz. 83.224832hs; 37.00 BMI Method: General Appearance: No Apparent Distress, WD/WN Eyes: Bilateral Eye Normal Inspection, Bilateral Eye PERRL, Bilateral Eye EOMI HEENT: PERRL/EOMI, TMs Normal, Other (She does have some palpable posterior cervical chain and submandibular lymph nodes. She has some superficial quarter to half centimeter circular in diameter impetigo appearing lesions of erythema with honey colored crust to the lower jaw. She has a few small 1 cm patches of erythema on the posterior scalp.) Neck: Lymphadenopathy (L), Lymphadenopathy (R) Respiratory: No Accessory Muscle Use, No Respiratory Distress Cardiovascular: Regular Rate, Rhythm, Normal Peripheral Pulses Gastrointestinal: Normal Bowel Sounds, Non Tender, Soft Extremity: Normal Capillary Refill, Normal Inspection Neurologic/Psychiatric: Alert, Oriented x3 Skin: Normal Color, Warm/Dry Progress/Results/Core Measures Suspected Sepsis SIRS Temperature: Pulse: 116 Respiratory Rate: 18 Blood Pressure 126 /87 Mean: 100 Results/Orders Vital Signs/I&O 07/04/21 18:17 Temp 37.2 Pulse 116 Resp 18 B/P (MAP) 126/87 (100) Pulse Ox 98 Capillary Refill : Less Than 3 Seconds Blood Pressure Mean: 100 Departure Impression Primary Impression: Soft tissue infection Additional Impression: Reactive lymphadenopathy Disposition: HOME, SELF-CARE Condition: Stable Departure-Patient Inst. Decision time for Depature: 18:55 Referrals: GRZEGORZ MCGRATH DNP (PCP/Family) Primary Care Physician Patient Instructions: LYMPH NODE SWELLING, Lymphadenitis Add. Discharge Instructions: 1. These lymph nodes are most likely swollen secondary to the skin infection on your general and your scalp. Take the oral antibiotics as directed. Take ibuprofen 800 mg at 4 tablets every 8 hours for the next 2 to 3 days. Take the stronger pain medication as prescribed. Follow-up with your doctor next week for recheck to ensure that these have gone away. All discharge instructions reviewed with patient and/or family. Voiced understanding. Scripts Oxycodone HCl/Acetaminophen (Percocet 5-325 mg Tablet) 1 Each Tablet 1 TAB PO Q4H for PAIN-MODERATE MDD 6 TABS for 7 Days, #10 TAB Prov: RISSA TEJEDA APRN 07/04/21 Doxycycline Hyclate (Doxycycline Hyclate) 100 Mg Tablet 100 MG PO BID, #14 TAB 0 Refills Prov: RISSA TEJEDA APRN 07/04/21 RISSA TEJEDA APRN Jul 04, 2021 18:57
[2021-07-04] MEDS ORDERED: OXYC1TAB87 PO (18:58)
[2021-07-04] MEDS ORDERED: DOXY100T2 PO (18:58)
== END 2021-07-04 19:06 | disposition home or self-care (01) ==
LOC: EDUNIT# 18:04 → ER 18:08
DX: M79.89 Other specified soft tissue disorders (principal); R59.1 Generalized enlarged lymph nodes
CPT/HCPCS: 99281

== ENCOUNTER 2021-07-05 17:19 | Emergency (ER) | payer BC ==
[~2021-07-05] VITALS: Ht 160 cm; Wt 96.6 kg
[~2021-07-05 17:19] MED LIST changes: +DOXY100T2 PO; +OXYC1TAB87 PO
--- NOTE | 2021-07-05 17:26 | ED EENT ---
History of Present Illness General Stated Complaint: FACIAL SWELLING/FEVER Source: patient Exam Limitations: no limitations (RISSA TEJEDA APRN) History of Present Illness Date Seen by Provider: Jul 05, 2021 Time Seen by Provider: 17:24 Initial Comments to ER with fever up to 103, cough, left-sided jaw swelling. She was seen 2 days ago at [facility] for this and had a negative Covid swab. She was seen here by me yesterday. She had some sores to the anterior chin into her scalp and this was believed to be reactive lymphadenopathy to those wounds with soft tissue infection. There was no drainable abscess. She did have palpable posterior cervical chain and submandibular lymph nodes. She was given a p rescription for doxycycline. She called back today to report increasing swelling in the left lower jaw and fevers as well as development of sore throat and cough today. Timing/Duration: last week Severity: moderate Location: facial Associated Symptoms: cough, facial pain/swelling, sore throat (RISSA TEJEDA APRN) Allergies and Home Medications Allergies Coded Allergies: codeine (Verified Adverse Reaction, Mild, NAUSEA, 12/09/17) morphine (Unverified Adverse Reaction, Mild, NAUSEA, 12/09/17) Patient Home Medication List Home Medication List Reviewed: Yes (RISSA TEJEDA APRN) ALPRAZolam (Xanax Tablet) 0.25 Mg Tablet, (Reported) Entered as Reported by: CARRILLO TORRES on 08/18/192223 Cefdinir (Cefdinir) 300 Mg Capsule, 300 MG PO BID Prescribed by: CORI HOBBS on 08/18/19 235 Cyclobenzaprine HCl (Cyclobenzaprine HCl) 10 Mg Tablet, 10 MG PO DAILY PRN for MIGRAINE, (Reported) Entered as Reported by: JUHI MILLARD on 10/12/18 1406 Dexamethasone (Dexamethasone) 0.5 Mg Tablet, 0.5 MG PO We, (Reported) Entered as Reported by: JUHI MILLARD on 10/12/18 1406 Dicyclomine HCl (Dicyclomine HCl) 20 Mg Tablet, 20 MG PO Q6H Prescribed by: CORI HOBBS on 08/18/19 2355 Dihydroergotamine Mesylate (Migranal) 1 Ml [place].pump, 1 SPRAY NS DAILY PRN for MIGRAINE, (Reported) Entered as Reported by: SHRUTHI GRIFFIN on 10/13/181546 Doxycycline Hyclate (Doxycycline Hyclate) 100 Mg Tablet, 100 MG PO BID Prescribed by: RISSA TEJEDA on 07/04/211857 Fremanezumab-Vfrm (Ajovy) 225 Mg/1.5 Ml Syringe, (Reported) Entered as Reported by: CARRILLO TORRES on 08/18/192223 Hyoscyamine Sulfate (Levsin-Sl) 0.125 Mg Tab.subl, 0.25 MG SL Q4H Prescribed by: CORI HOBBS on 08/18/192354 Levothyroxine Sodium (Levothyroxine Sodium) 75 Mcg Tablet, (Reported) Entered as Reported by: CARRILLO TORRES on 08/18/192223 Ondansetron (Ondansetron Odt) 8 Mg Tab.rapdis, 8 MG PO Q6H Prescribed by: CORI HOBBS on 08/18/192354 Oxycodone HCl/Acetaminophen (Oxycodone-Acetaminophen 5-325) 1 Each Tablet, (Reported) Entered as Reported by: CARRILLO TORRES on 08/18/192223 Oxycodone HCl/Acetaminophen (Percocet 5-325 mg Tablet) 1 Each Tablet, 1 TAB PO Q4H Prescribed by: RISSA TEJEDA on 07/04/211858 Pantoprazole Sodium (Protonix) 40 Mg Tablet.dr, 40 MG PO DAILY Prescribed by: KIMBER MICHAEL on 11/13/20 1125 Promethazine HCl (Promethazine Tablet) 25 Mg Tablet, 25 MG PO Q6H PRN for NAUSEA/VOMITING-2ND LINE, (Reported) Entered as Reported by: SHRUTHI GRIFFIN on 10/13/181546 Semaglutide (Rybelsus) 3 Mg Tablet, (Reported) Entered as Reported by: CARRILLO TORRES on 08/18/192223 Review of Systems Review of Systems Constitutional: see HPI, chills, fever Eyes: No Symptoms Reported Ears: No Symptoms Reported Nose: no symptoms reported Mouth: no symptoms reported Throat: see HPI, pain Respiratory: see HPI, cough Cardiovascular: no symptoms reported Musculoskeletal: see HPI Skin: no symptoms reported Neurological: No Symptoms Reported Hematologic/Lymphatic: No Symptoms Reported Immunological/Allergic: no symptoms reported (RISSA TEJEDA APRN) Past Vwkldzz-Nqyqwr-Cpbbne Hx Immunizations Up To Date Tetanus Booster (TDap): Less than 5yrs First/Initial COVID19 Vaccinat: 2020 Second COVID19 Vaccination Leroy: 2020 (RISSA TEJEDA APRN) Seasonal Allergies Seasonal Allergies: Yes (RISSA TEJEDA APRN) Past Medical History Surgeries: Yes (BILAT KNEE SCOPES, LEFT SHOULDER, LEFT ELBOW, DXLS-HYST 01/2019;BSO 08/16/19) Section, Gallbladder, Hysterectomy, Oophorectomy, Orthopedic Respiratory: No Currently Using CPAP: No Currently Using BIPAP: No Cardiac: No Neurological: Yes Headaches /Migraines Reproductive Disorders: Yes (CHRONIC PELVIC PAIN-LAPAROSCOPIES WITH HYST AND LATER BSO) Female Reproductive Disorders: Menstrual Problems, Endometriosis, Ovarian Cyst, 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 Sexually Transmitted Disease: No HIV/AIDS: No Genitourinary: No Gastrointestinal: Yes (WITH ) Gastroesophageal Reflux, Chronic Constipation Musculoskeletal: Yes (DISLOCATED COCCYX DURING FIRST DELIVERY ( VAGINAL) ) Endocrine: Yes Hypothyroidsim HEENT: No Loss of Vision: Denies Hearing Impairment: Denies Cancer: No Psychosocial: Yes Anxiety, Depression Integumentary: No Blood Disorders: No Adverse Reaction/Blood Tranf: No (N/A) (RISSA TEJEDA APRN) Family Medical History Cardiovascular disease 19 FATHER Diabetes mellitus 19 MOTHER Hypertension 19 MOTHER Kidney disease 19 MOTHER LUPUS 19 MOTHER PSH: -Robotic-assisted total laparoscopic hysterectomy with bilateral salpingectomy and anterior colporrhaphy. 10/20/[address] VALENCIA -BILATERAL OOPHORECTOMY 08/16/[address] REES AT [place] -Laparoscopic cauterization of peritoneal implants on the uterosacral ligaments. 12/[address] VALENCIA. -Operative laparoscopy with right ovarian cystotomy 04/[address] VALENCIA - X 1 -BILATERAL KNEE SCOPES -LEFT SHOULDER SURGERY -LEFT ELBOW SURGERY (RISSA TEJEDA APRN) Physical Exam Vital Signs Vital Signs - First Documented 07/05/21 17:29 Temp 38.0 Pulse 121 Resp 20 B/P (MAP) 129/86 (100) Pulse Ox 98 O2 Delivery Room Air (ANJEL,CORI K DO) Height, Weight, BMI Height: 5'3.00" Weight: 183lbs. 0.0oz. 83.306749mb; 37.00 BMI Method: General Appearance: WD/WN, no apparent distress Eyes: bilateral eye normal inspection, bilateral eye PERRL, bilateral eye EOMI Ears: bilateral ear auricle normal, bilateral ear canal normal, bilateral ear TM normal Neck: non-tender, full range of motion, lymphadenopathy (R), lymphadenopathy (L) Respiratory: normal breath sounds, no respiratory distress, no accessory muscle use Gastrointestinal: normal bowel sounds, non tender Neurologic/Psychiatric: alert, normal mood/affect, oriented x 3 Skin: normal color, warm/dry, other (erythema/pustule to left mandible) (RISSA TEJEDA APRN) Progress/Results/Core Measures Results/Orders Lab Results Laboratory Tests Test 07/05/21 17:35 07/05/21 18:00 07/05/21 18:19 Range/Units White Blood Count 7.4 4.3-11.0 10^3/uL Red Blood Count 4.57 3.80-5.11 10^6/uL Hemoglobin 13.3 11.5-16.0 g/dL Hematocrit 40 35-52 % Mean Corpuscular Volume 88 80-99 fL Mean Corpuscular Hemoglobin 29 25-34 pg Mean Corpuscular Hemoglobin Concent 33 32-36 g/dL Red Cell Distribution Width 13.4 10.0-14.5 % Platelet Count 238 130-400 10^3/uL Mean Platelet Volume 9.2 9.0-12.2 fL Immature Granulocyte % (Auto) 0 % Neutrophils (%) (Auto) 68 42-75 % Lymphocytes (%) (Auto) 22 12-44 % Monocytes (%) (Auto) 9 0-12 % Eosinophils (%) (Auto) 1 0-10 % Basophils (%) (Auto) 0 0-10 % Neutrophils # (Auto) 5.0 1.8-7.8 10^3/uL Lymphocytes # (Auto) 1.6 1.0-4.0 10^3/uL Monocytes # (Auto) 0.6 0.0-1.0 10^3/uL Eosinophils # (Auto) 0.1 0.0-0.3 10^3/uL Basophils # (Auto) 0.0 0.0-0.1 10^3/uL Immature Granulocyte # (Auto) 0.0 0.0-0.1 10^3/uL Sodium Level 135 135-145 MMOL/L Potassium Level 3.6 3.6-5.0 MMOL/L Chloride Level 101 98-107 MMOL/L Carbon Dioxide Level 24 21-32 MMOL/L Anion Gap 10 5-14 MMOL/L Blood Urea Nitrogen 7 7-18 MG/DL Creatinine 0.79 0.60-1.30 MG/DL Estimat Glomerular Filtration Rate 98 BUN/Creatinine Ratio 9 Glucose Level 127 H 70-105 MG/DL Calcium Level 9.5 8.5-10.1 MG/DL Corrected Calcium 9.3 8.5-10.1 MG/DL Total Bilirubin 0.7 0.1-1.0 MG/DL Aspartate Amino Transf (AST/SGOT) 65 H 5-34 U/L Alanine Aminotransferase (ALT/SGPT) 90 H 0-55 U/L Alkaline Phosphatase 88 40-136 U/L C-Reactive Protein High Sensitivity 11.74 H 0.00-0.50 MG/DL Total Protein 7.8 6.4-8.2 GM/DL Albumin 4.2 3.2-4.5 GM/DL Serum Test, Qualitative NEGATIVE NEGATIVE Influenza Type A (RT-PCR) Not Detected Not Detecte Influenza Type B (RT-PCR) Not Detected Not Detecte SARS-CoV-2 RNA (RT-PCR) Not Detected Not Detecte Group A Streptococcus Screen NEGATIVE NEGATIVE Monoscreen NEGATIVE NEGATIVE (CORI HOBBS DO) Medications Given in ED Current Medications Medications Dose Ordered Sig/Jing Route Start Time Stop Time Status Last Admin Dose Admin Ceftriaxone Sodium 2000 mg/ Sodium Chloride 50 ml @ 100 mls/hr ONCE ONCE IV 07/05/21 19:45 07/05/21 20:12 DC 07/05/21 19:47 100 MLS/HR (CORI HOBBS DO) Vital Signs/I&O 07/05/21 07/05/21 17:29 20:10 Temp 38.0 37.4 Pulse 121 118 Resp 20 20 B/P (MAP) 129/86 (100) 117/80 Pulse Ox 98 98 O2 Delivery Room Air Room Air (CORI HOBBS DO) Departure Communication (Admissions) 193-Discussed the CT results with her showing a left upper lobe consolidation likely pneumonia/pneumonitis. Discussed with her the need for follow-up with primary care to reevaluate this with imaging in 1 to 2 weeks after a course of treatment with antibiotics. (RISSA TEJEDA APRN) Impression Primary Impression: Reactive lymphadenopathy Additional Impression: RUDY pneumonia Disposition: 01 HOME, SELF-CARE Condition: Stable Departure-Patient Inst. Decision time for Depature: 19:40 (RISSA TEJEDA APRN) Referrals: GONZALES ZAVALETA DO (PCP/Family) Primary Care Physician Patient Instructions: Pneumonia, Adult (DC), Lymphadenitis (DC) Add. Discharge Instructions: 1. Call Dr. Zavaleta Wednesday morning to make an appointment to be seen as soon as he can next week for follow-up. Return to ER for any concerns. Continue the doxycycline antibiotics. ATTENDING PHYSICIAN NOTE: I WAS PHYSICALLY PRESENT ER PHYSICIAN WHEN THIS PATIENT WAS IN ER, BUT I WAS NOT INVOLVED IN ANY DECISION MAKING OR ANY CARE OF THIS PATIENT. (CORI HOBBS DO) Copy Copies To 1: GONZALES ZAVALETA PETER J APRN Jul 05, 2021 17:26 CORI HOBBS DO Jul 05, 2021 22:36
[2021-07-05 17:46] LABS: BASOPHILS % (AUTO) 0 % (0-10); EOSINOPHILS # (AUTO) 0.1 10^3/uL (0.0-0.3); EOSINOPHILS % (AUTO) 1 % (0-10); HEMATOCRIT 40 % (35-52); HEMOGLOBIN 13.3 g/dL (11.5-16.0); LYMPHOCYTES # (AUTO) 1.6 10^3/uL (1.0-4.0); LYMPHOCYTES % (AUTO) 22 % (12-44); MEAN CORPUSCULAR HEMOGLOBIN 29 pg (25-34); MEAN CORPUSCULAR HGB CONC 33 g/dL (32-36); MEAN CORPUSCULAR VOLUME 88 fL (80-99); MEAN PLATELET VOLUME 9.2 fL (9.0-12.2); MONOCYTES # (AUTO) 0.6 10^3/uL (0.0-1.0); MONOCYTES % (AUTO) 9 % (0-12); NEUTROPHILS % (AUTO) 68 % (42-75); PLATELET COUNT 238 10^3/uL (130-400); WHITE BLOOD COUNT 7.4 10^3/uL (4.3-11.0)
[2021-07-05] MEDS ORDERED: HOLD METFORMIN - RECEIVED CONTRAST 20 ML VIAL IV SCH (18:30)
[2021-07-05] MEDS ORDERED: NS 100 ML (IVPB) BAG IV ONE (18:30)
[2021-07-05] MEDS ORDERED: IOHEXOL 350 MG/ML 100 ML (OMNIPAQUE 350) VIAL IV ONE (18:30)
[2021-07-05 18:31] LABS: ALBUMIN 4.2 GM/DL (3.2-4.5)
[2021-07-05 18:32] LABS: POTASSIUM 3.6 MMOL/L (3.6-5.0)
[2021-07-05 18:33] LABS: CALCIUM 9.5 MG/DL (8.5-10.1)
[2021-07-05 18:34] LABS: TOTAL PROTEIN 7.8 GM/DL (6.4-8.2)
[2021-07-05 18:36] LABS: BILIRUBIN,TOTAL 0.7 MG/DL (0.1-1.0)
[2021-07-05 18:38] LABS: CREATININE SERUM 0.79 MG/DL (0.60-1.30)
--- NOTE | 2021-07-05 19:24 | Diagnostic Imaging Report ---
PROCEDURE: CT neck soft tissue with contrast. TECHNIQUE: Multiple contiguous axial images were obtained through the neck after the administration of contrast. Auto Exposure Controls were utilized during the CT exam to meet ALARA standards for radiation dose reduction. INDICATION: Left-sided lymphadenopathy. COMPARISON: None. FINDINGS: No cervical lymphadenopathy by criteria. Left level 2 and level 5 cervical lymph nodes are asymmetrically prominent and may be reactive. No necrotic lymph nodes are identified. Thickening of the dermis and underlying mild subcutaneous edema on the left at the level of the mandible is suspicious for cellulitis. There is an associated 0.4 cm fluid collection in the dermis likely representing a pustule. No suspicious mass in the neck. The thyroid and major salivary glands are negative. Normal floor of the mouth, tongue base, epiglottis and retropharyngeal space. Enlarged lingual tonsils. No suspicious mass or enhancement in the pharynx or larynx. Mucosal thickening in the maxillary sinuses. The mastoids are clear. No acute osseous findings. Major vessels in the neck are grossly patent. Airspace opacity in the left upper lobe measuring up to 2.4 cm. IMPRESSION: 1. Thickening of the dermis and underlying edema in the subcutaneous fat on the left at the level of the mandible with associated pustule. 2. Prominent left level 2 and 5 cervical lymph nodes remain subcentimeter in short axis dimension but are asymmetrically enlarged compared to the contralateral side and likely reactive. No necrotic lymph nodes are identified. 3. Enlarged lingual tonsils. 4. Dense airspace opacity in the left upper lobe measuring up to 2.4 cm suspicious for pneumonitis. Recommend follow-up to resolution as this is quite dense and a mass cannot be entirely excluded. Dictated by: Dictated on workstation # [id number]
[2021-07-05] MEDS ORDERED: dexAMETHasone 6 MG TAB (DECADRON) PO SCH (19:45)
[2021-07-05] MEDS ORDERED: cefTRIAXone 2,000 MG in NS (IVPB) 50 ML IV ONE (19:45)
--- NOTE | 2021-07-05 19:59 | Diagnostic Imaging Report ---
EXAM: Chest, PA and lateral, two views. INDICATION: Cough. Nausea. Dizziness. COMPARISON: Chest radiograph 01/09/2021. FINDINGS: Normal heart size and central pulmonary vascularity. Airspace opacity in the left upper lobe. Mild atelectasis and/or infiltrate in the lung bases. Elevation of the left hemidiaphragm. No pleural effusion or pneumothorax. No acute osseous findings. IMPRESSION: 1. Airspace opacity in the left upper lobe suspicious for pneumonitis. Recommend follow-up to resolution. 2. Low lung volumes with bibasilar atelectasis, less likely infiltrate. Dictated by: Dictated on workstation # [id number]
[2021-07-05 20:10] VITALS: BP 117/80
== END 2021-07-05 20:10 | disposition home or self-care (01) ==
LOC: EDUNIT# 17:19 → ER 17:22
DX: J18.9 Pneumonia, unspecified organism (principal); R59.1 Generalized enlarged lymph nodes; Z20.822 Contact with and (suspected) exposure to COVID-19; Z32.02 Encounter for pregnancy test, result negative
CPT/HCPCS: 36415; 70491; 71046; 80053; 84703; 85025; 86141; 86308; 87430; 87636

== ENCOUNTER 2021-12-16 17:32 | Emergency (ER) | payer BC ==
[~2021-12-16] VITALS: Ht 160 cm; Wt 88.4 kg
[~2021-12-16 17:32] MED LIST changes: -CRAN500T3 PO; +CRAN500T4 PO; -SEMA3TAB; +SEMA3TAB4
[2021-12-16] MEDS ORDERED: L.E.T. SOLUTION 3 ML SYR TOP ONE (17:45)
--- NOTE | 2021-12-16 17:49 | ED Integumentary General ---
General Chief Complaint: Skin/Wound Problems Stated Complaint: BLEEDING FROM STOMACH Source: patient Exam Limitations: no limitations History of Present Illness Date Seen by Provider: Dec 16, 2021 Time Seen by Provider: 17:40 Initial Comments Patient is a 41-year-old female who presents to the emergency department today with a chief complaint of bleeding from the area where her bellybutton ring pulled out last evening. Patient states she went to urgent care today and was given some mupirocin ointment but the left side of the wound has continued to bleed. She states it is very uncomfortable. She took 2 ibuprofen a couple of hours prior to arrival. No other complaints of illness or injury. Timing/Duration: other (Last night) Severity: moderate Possible Cause: other (Bellybutton ring ripped out) Associated Symptoms: other (Pain at the navel) Allergies and Home Medications Allergies Coded Allergies: codeine (Verified Adverse Reaction, Mild, NAUSEA, 12/09/17) morphine (Unverified Adverse Reaction, Mild, NAUSEA, 12/09/17) Patient Home Medication List Home Medication List Reviewed: Yes ALPRAZolam (Xanax Tablet) 0.25 Mg Tablet, (Reported) Entered as Reported by: CARRILLO TORRES on 08/18/192223 Cefdinir (Cefdinir) 300 Mg Capsule, 300 MG PO BID Prescribed by: CORI HOBBS on 08/18/19 235 Cyclobenzaprine HCl (Cyclobenzaprine HCl) 10 Mg Tablet, 10 MG PO DAILY PRN for MIGRAINE, (Reported) Entered as Reported by: JUHI MILLARD on 10/12/18 1406 Dexamethasone (Dexamethasone) 0.5 Mg Tablet, 0.5 MG PO We, (Reported) Entered as Reported by: JUHI MILLARD on 10/12/18 1406 Dicyclomine HCl (Dicyclomine HCl) 20 Mg Tablet, 20 MG PO Q6H Prescribed by: CORI HOBBS on 08/18/19 2355 Dihydroergotamine Mesylate (Migranal) 1 Ml [place].pump, 1 SPRAY NS DAILY PRN for MIGRAINE, (Reported) Entered as Reported by: SHRUTHI GRIFFIN on 10/13/18 1547 Doxycycline Hyclate (Doxycycline Hyclate) 100 Mg Tablet, 100 MG PO BID Prescribed by: RISSA TEJEDA on 07/04/21 1858 Fremanezumab-Vfrm (Ajovy) 225 Mg/1.5 Ml Syringe, (Reported) Entered as Reported by: CARRILLO TORRES on 08/18/192223 Hyoscyamine Sulfate (Levsin-Sl) 0.125 Mg Tab.subl, 0.25 MG SL Q4H Prescribed by: CORI HOBBS on 08/18/192354 Levothyroxine Sodium (Levothyroxine Sodium) 75 Mcg Tablet, (Reported) Entered as Reported by: CARRILLO TORRES on 08/18/192223 Ondansetron (Ondansetron Odt) 8 Mg Tab.rapdis, 8 MG PO Q6H Prescribed by: CORI HOBBS on 08/18/192354 Oxycodone HCl/Acetaminophen (Oxycodone-Acetaminophen 5-325) 1 Each Tablet, (Reported) Entered as Reported by: CARRILLO TORRES on 08/18/192223 Oxycodone HCl/Acetaminophen (Percocet 5-325 mg Tablet) 1 Each Tablet, 1 TAB PO Q4H Prescribed by: RISSA TEJEDA on 07/04/211858 Pantoprazole Sodium (Protonix) 40 Mg Tablet.dr, 40 MG PO DAILY Prescribed by: KIMBER MIHCAEL on 11/13/20 1125 Promethazine HCl (Promethazine Tablet) 25 Mg Tablet, 25 MG PO Q6H PRN for NAUSEA/VOMITING-2ND LINE, (Reported) Entered as Reported by: SHRUTHI GRIFFIN on 10/13/18 1547 Semaglutide (Rybelsus) 3 Mg Tablet, (Reported) Entered as Reported by: CARRILLO TORRES on 08/18/192223 Review of Systems Review of Systems Constitutional: see HPI Skin: other (Wound just superior to the navel, bleeding) Past Beelabd-Ozvurs-Hcbykq Hx Immunizations Up To Date Tetanus Booster (TDap): Less than 5yrs First/Initial COVID19 Vaccinat: 2020 Second COVID19 Vaccination Leroy: 2020 Seasonal Allergies Seasonal Allergies: Yes Past Medical History Surgeries: Yes (BILAT KNEE SCOPES, LEFT SHOULDER, LEFT ELBOW, DXLS-HYST 01/2019;BSO 08/16/19) Section, Gallbladder, Hysterectomy, Oophorectomy, Orthopedic Respiratory: No Currently Using CPAP: No Currently Using BIPAP: No Cardiac: No Neurological: Yes Headaches /Migraines Reproductive Disorders: Yes (CHRONIC PELVIC PAIN-LAPAROSCOPIES WITH HYST AND LATER BSO) Female Reproductive Disorders: Menstrual Problems, Endometriosis, Ovarian Cyst, Polycystic Ovarian Dis [employer] History: Hysterectomy Sexually Transmitted Disease: No HIV/AIDS: No Genitourinary: No Gastrointestinal: Yes (WITH ) Gastroesophageal Reflux, Chronic Constipation Musculoskeletal: Yes (DISLOCATED COCCYX DURING FIRST DELIVERY ( VAGINAL) ) Endocrine: Yes Hypothyroidsim HEENT: No Loss of Vision: Denies Hearing Impairment: Denies Cancer: No Psychosocial: Yes Anxiety, Depression Integumentary: No Blood Disorders: No Adverse Reaction/Blood Tranf: No (N/A) Family Medical History Cardiovascular disease 19 FATHER Diabetes mellitus 19 MOTHER Hypertension 19 MOTHER Kidney disease 19 MOTHER LUPUS 19 MOTHER PSH: -Robotic-assisted total laparoscopic hysterectomy with bilateral salpingectomy and anterior colporrhaphy. 10/20/[address] VALENCIA -BILATERAL OOPHORECTOMY 08/16/[address] REES [facility] -Laparoscopic cauterization of peritoneal implants on the uterosacral ligaments. 12/[address] VALENCIA. -Operative laparoscopy with right ovarian cystotomy 04/[address] VALENCIA - X 1 -BILATERAL KNEE SCOPES -LEFT SHOULDER SURGERY -LEFT ELBOW SURGERY Physical Exam Vital Signs Capillary Refill : General Appearance: WD/WN, no apparent distress Cardiovascular: regular rate, rhythm Respiratory: no respiratory distress, no accessory muscle use Skin: normal color, warm/dry, other (Avulsion injury just superior to the navel where her bellybutton ring ripped through the skin. The right side of the wound has 1/2 cm skin tag that has no active bleeding. The left side of the wound has a flap-like tag of skin that is currently adhered to the anterior abdomen. No active bleeding.) Progress/Results/Core Measures Results/Orders My Orders Orders - LEIGHA BLEVINS MD Let Solution (Let Solution) (12/16/21 17:45) Departure Impression Primary Impression: Avulsion injury Disposition: 01 HOME, SELF-CARE Condition: Stable Departure-Patient Inst. Decision time for Depature: 17:47 Referrals: GONZALES MCGRATH DO (PCP/Family) Primary Care Physician Patient Instructions: Wound Care (DC) Add. Discharge Instructions: Keep the area clean dry and covered for the next 2 to 3 days. Apply the mupirocin ointment twice a day. The lidocaine gel we have placed on the wound will cause some numbness over the course of the next 30 minutes. It should last you for couple of hours. Take the cotton off in 30 to 45 minutes. You can take 800 mg of ibuprofen or 4 Advil/Motrin tablets every 8 hours as needed for pain. Always take ibuprofen with food. Monitor the area for signs of infection such as fever, redness, swelling, drainage of pus. If any of these things occur please come back to the emergency department for reevaluation. Copy Copies To 1: GONZALES MCGRATH KATHRYN M MD Dec 16, 2021 17:49
[2021-12-16 18:02] VITALS: BP 124/89
== END 2021-12-16 18:02 | disposition home or self-care (01) ==
LOC: EDUNIT# 17:32 → ER 17:33
DX: S39.91XA Unspecified injury of abdomen, initial encounter (principal); Z90.49 Acquired absence of other specified parts of digestive tract; X58.XXXA Exposure to other specified factors, initial encounter
CPT/HCPCS: 99281

== ENCOUNTER → 2023-03-22 | Outpatient (CLI) | payer MEDICARE, OTHER | LOC: WOUNDCARE 08:21 | PROVIDERS: ATTEND Family Medicine | DX: C44.722 Squamous cell carcinoma of skin of right lower limb, including hip (principal); L91.0 Hypertrophic scar; E66.01 Morbid (severe) obesity due to excess calories; Z68.37 Body mass index [BMI] 37.0-37.9, adult | CPT/HCPCS: 99213 ==